=== PATIENT | male | born 1955 | race Two or more races ===

== ENCOUNTER 2024-11-16 10:09 | Inpatient (IN) | payer MEDICARE, OTHER ==
[~2024-11-16] VITALS: Ht 167.6 cm; Wt 60.9 kg
--- NOTE | 2024-11-16 10:36 | ED.PDOC ---
HPI (NEURO) HPI Comments 69y M who presents to the ED for chief complaint of generalized weakness. Pt states he has been having weakness and states he has been having multiple falls in the past few weeks with last fall 5 days prior. Pt states he fell and hit his head but states he did not lose consciousness. Pt has noted bruise on the R side of his face and eye. Pt in the ED, is alert and oriented x 4 and able to answer all questions. Pt has no noted changes in vision, gait, or speech. Pt denies headache, dizziness, nausea, vomiting, chest pain or shortness of breath. Pt otherwise has noted history of DM and has noted Accu check of 567 in the ED. Pt otherwise denies any other symptoms at this time. Time Seen by MD: 10:33 Reviewed Notes: Nurses Notes, Medications, Allergies Mode of Arrival: Ambulatory Brought in by: sister Severity: Moderate Dizziness/Weakness Severity: Does not affect activitie Headache Severity: None Timing: Days Duration: Since onset Prehospital treatment: None Onset: At rest Circumstances: Spontaneous Symptoms: Weakness History of: DM Modifying factors: Nothing Associated Signs and Symptoms: Weakness Past Medical History PAST MEDICAL HISTORY: DM Surgical History: Denies all surgeries Family History Family History: Unknown Social History Smoker: Non-Smoker Alcohol: Denies ETOH Use Drugs: Marijuana Lives In: Home Constitutional: reports: malaise, weakness; denies: chills, diaphoresis, f atigue, fever, sweats, others EENTM: denies: blurred vision, double vision, ear bleeding, ear discharge, ear drainage, ear pain, ear ringing, eye pain, eye redness, hearing loss, mouth pain, mouth swelling, nasal discharge, nose bleeding, nose congestion, nose pain, photophobia, tearing, throat pain, throat swelling, voice changes, others Respiratory: denies: cough, hemoptysis, orthopnea, SOB at rest, shortness of breath, SOB with excertion, stridor, wheezing, others Cardiovascular: denies: chest pain, dizzy spells, diaphoresis, Dyspnea on exertion, edema, irregular heart beat, left arm pain, lightheadedness, palpitations, PND, syncope, others Gastrointestinal: denies: abdomen distended, abdominal pain, blood streaked bowels, constipated, diarrhea, dysphagia, difficulty swallowing, hematemesis, me brenda, nausea, poor appetite, poor fluid intake, rectal bleeding, rectal pain, vomiting, others Genitourinary: denies: burning, dysuria, flank pain, frequency, hematuria, incontinence, penile discharge, penile sore, pain, testicle pain, testicle swelling, urgency, others Neurological: reports: weakness; denies: dizziness, fainting, headache, left sided numbness, left sided weakness, numbness, paresthesia, pre-existing deficit, right sided numbness, right sided weakness, seizure, speech problems, tingling, tremors, others Musculoskeletal: denies: back pain, gout, joint pain, joint swelling, muscle pain, muscle stiffness, neck pain, others Integumetry: denies: bruises, change in color, change in hair/nails, dryness, laceration, lesions, lumps, rash, wounds, others Allergic/Immunocompromised: denies: Difficulty Healing, Frequent Infections, Hives, Itching, others Hematologic/Lymphatic: denies: anemia, blood clots, easy bleeding, easy bruising, swollen glands, others Endocrine: denies: excessive hunger, excessive sweating, excessive thirst, excessive urination, flushing, intolerance to cold, intolerance to heat, unexplained weight gain, unexplained weight loss, others Psychiatric: denies: anxiety, bipolar disorder, depression, hopeless, panic disorder, schizophrenia, sleepless, suicidal, others All Other Systems: Reviewed and Negative Physical Exam General Appearance: Moderate Distress HEENT: Pharynx Normal, TMs Normal, Other (Bruising and ecchymosis around both eyes) Neck: Full Range of Motion, Non-Tender, Normal, Normal Inspection Respiratory: Chest Non-Tender, Lungs Clear, No Accessory Muscle Use, No Respiratory Distress, Normal Breath Sounds Cardiovascular: No Edema, No JVD, No Murmur, No Gallop, Normal Peripheral Pulses, Regular Rate/Rhythm Breast Exam: Deferred Gastrointestinal: No Organomegaly, Non Tender, No Pulsatile Mass, Normal Bowel Sounds, Soft Genitalia: Deferred Pelvic: Deferred Rectal: Deferred Extremities: No calf tenderness, Normal capillary refill, No pedal edema Musculoskeletal : Apperance: Normal Neurologic: corpsman II-XII nml as Tested, Motor Weakness, No Sensory Deficits, Other (Lethargic) Cerebellar Function: Normal Reflexes: Normal Skin: Dry, Normal Color, Warm Lymphatic: No Adenopathy EKG EKG : Pulse Rate (adult): 85 [place]: RAD Cardiac Rhythm: NSR Block: None Hypertrophy: None ST: Normal Was a procedure done? Was a procedure done?: No Differential Diagnosis (SZ) Seizure: N/A General Weakness: Anemia, CVA, Dehydration, Electrolyte imbalance, Encephalopathy, TIA, Other (uncontrolled DM, ) X-Ray, Labs, Meds, VS Vital Signs Date Time Temp Pulse Resp B/P (MAP) Pulse Ox O2 Delivery O2 Flow Rate FiO2 11/16/24 11:26 76 14 98 Room Air* 0 21 11/16/24 11:26 98.2 76 14 111/68 (82) 98 98.2 11/16/24 10:36 85 11/16/24 10:28 85 11/16/24 10:15 97.9 86 16 125/72 (89) 96 Lab Test 11/16/24 10:43 11/16/24 10:26 11/16/24 10:24 Range/Units White Blood Count 4.8 4.4-10.8 10^3/uL Red Blood Count 3.85 L 4.5-5.90 10^6/uL Hemoglobin 12.2 L 13.5-17.5 g/dL Hematocrit 36.1 L 41.0-53.0 % Mean Corpuscular Volume 94.0 80.0-100.0 fL Mean Corpuscular Hemoglobin 31.8 28.0-32.0 pg Mean Corpuscular Hemoglobin Concent 33.8 32.0-36.0 g/dL Red Cell Distribution Width 14.0 11.8-14.3 % Platelet Count 203 140-450 10^3/uL Mean Platelet Volume 10.0 6.9-10.8 fL Neutrophils (%) (Auto) 79.7 37.0-80.0 % Lymphocytes (%) (Auto) 13.4 10.0-50.0 % Monocytes (%) (Auto) 6.3 0.0-12.0 % Eosinophils (%) (Auto) 0.2 0.0-7.0 % Basophils (%) (Auto) 0.4 0.0-2.0 % Neutrophils # (Auto) 3.8 1.6-8.6 10 ^3/uL Lymphocytes # (Auto) 0.6 0.4-5.4 10 ^3/uL Monocytes # (Auto) 0.3 0-1.3 10 ^3/uL Eosinophils # (Auto) 0 0-0.8 10 ^3/uL Basophils # (Auto) 0 0-0.2 10 ^3/uL Nucleated Red Blood Cells 0.0 % Sodium Level 132 L 136-145 mmol/L Potassium Level 5.2 H 3.5-5.1 mmol/L Chloride Level 97 L 98-107 mmol/L Carbon Dioxide Level 27 20-31 mmol/L Anion Gap 8 5-15 Blood Urea Nitrogen 18 9-23 mg/dL Creatinine 1.25 0.700-1.30 mg/dL Glomerular Filtration Rate Calc 63 >90 mL/min BUN/Creatinine Ratio 14.4 10.0-20.0 Serum Glucose 640 *H 74-106 mg/dL Hemoglobin A1c > 14.0 H <5.7 % A1C Calcium Level 9.7 8.7-10.4 mg/dL Beta-Hydroxybutyric Acid 1.162 H < 0.4 mmol/L POC Glucose 571 *H 567 *H 70-106 mg/dl Current Medications Medications (Trade) Dose Ordered Sig/Hilario Route Start Time Stop Time Status Last Admin Sodium Chloride 1,000 ml @ 1,000 mls/hr Q1H ONCE IV 11/16/24 10:30 11/16/24 11:29 DC 11/16/24 11:26 EXAM: CT HEAD WITHOUT CONTRAST IMPRESSION: No acute intracranial abnormality. The patient had a 1 L bolus of normal saline The patient has a CBC within normal limits The chemistry panel shows a sodium level 132 The potassium is five two The patient has a normal anion gap in the CO2 level is 27 The patient's serum glucose is 640 The patient was given insulin for the hyperglycemia The patient was being admitted at this time Images Reviewed?: Images reviewed and evaluated by me Time of 1ST Reevaluation: 11:05 Reevaluation 1ST: Unchanged Patient Education/Counseling: Diagnosis, Treatment, Prognosis Family Education/Counseling: No Family Present Departure 1 Departure Time of Disposition: 18:21 Impression: Primary Impression: Generalized weakness Additional Impressions: Hyperglycemia Multiple falls Hyponatremia Disposition: ADMITTED INPATIENT Admit to: Tele Condition: Fair Critical Care Note Critical Care Time?: Yes (55 min-critical care time only) Stability Stability form required: Yes Unstable for transfer: Telemetry monitoring (Telemetry monitoring required), ED Physician Assesment (Clinical assesment) Heart Score Heart Score: Heart Score Response (Comments) Value History N/A 0 EKG N/A 0 Age N/A 0 Risk Factors N/A 0 Troponin N/A 0 Total 0 I personally scribed for SHRUTHI FINCH MD ([email or web address]) on 11/16/24 at 10:36. Electronically submitted by Taylor Love ([employer]). I personally scribed for SHRUTHI FINCH MD ([email or web address]) on 11/16/24 at 11:37. Electronically submitted by Taylor Love ([employer]). SHRUTHI FINCH MD Nov 16, 2024 10:36
--- NOTE | 2024-11-16 10:50 | DVH ---
EXAM: CT HEAD WITHOUT CONTRAST INDICATION: FALL, trauma, pain TECHNIQUE: CT of the head without intravenous contrast. Radiation Dose : 1. Head: CT Dose: CTDI volume is 54.14 mGy. Dose-length product is 958.75 mGy*cm The dose indicators for CT are the volume Computed Tomography (CT) Dose Index (CTDIvol) and the Dose Length Product (DLP), and are measured in units of mGy and mGy-cm, respectively. These indicators are not patient dose, but values generated from the CT scanner acquisition factors. The report includes radiation exposure data for exposures received during this examination. COMPARISON: None FINDINGS: There is no evidence of acute intracranial hemorrhage, extra-axial collection, mass effect, midline s hift, herniation or hydrocephalus. The ventricles, sulci and cisterns are age appropriate. The ramirez-white differentiation is intact. Patchy periventricular and subcortical white matter hypoattenuation is nonspecific but may be related to small vessel ischemic disease. Mild mucosal opacification of the ethmoid air cells. Mild right frontal soft-tissue swelling. IMPRESSION: No acute intracranial abnormality. Radiation optimization: All CT scans at this facility use at least one of these dose optimization gardenia hniques: automated exposure control mA and/or kV adjustment per patient size (includes targeted exam s where dose is matched to clinical indication) or iterative reconstruction.
[2024-11-16 11:10] LABS: Basophils # (auto) 0 10 ^3/uL (0-0.2); Basophils % (auto) 0.4 % (0.0-2.0); Eosinophils # (auto) 0 10 ^3/uL (0-0.8); Eosinophils % (auto) 0.2 % (0.0-7.0); Hematocrit 36.1 % (41.0-53.0); Hemoglobin 12.2 g/dL (13.5-17.5); Lymphocytes # (auto) 0.6 10 ^3/uL (0.4-5.4); Lymphocytes % (auto) 13.4 % (10.0-50.0); Mean Corpuscular Hemoglobin 31.8 pg (28.0-32.0); Mean Corpuscular Hgb Conc. 33.8 g/dL (32.0-36.0); Monocytes # (auto) 0.3 10 ^3/uL (0-1.3); Monocytes % (auto) 6.3 % (0.0-12.0); Neutrophils # (auto) 3.8 10 ^3/uL (1.6-8.6); Neutrophils % (auto) 79.7 % (37.0-80.0); Platelet Count (auto) 203 10^3/uL (140-450); Red Blood Cells 3.85 10^6/uL (4.5-5.90); White Blood Cell 4.8 10^3/uL (4.4-10.8)
--- NOTE | 2024-11-16 11:11 | ECG ---
[facility] Test Date: 2024-11-16 Test Time: 10:28:10 Pat Name: SANG QUINTANA Department: ER Room: [address] [place] [address] Gender: M [employer] Work[employer]: GP : 1955 Requested By: SHRUTHI FINCH Order Number: [id number] Reading MD: Trevor Schmidt Measurements Intervals [place] Rate: 85 P: 85 WV: 155 QRS: 118 QRSD: 85 T: 36 QT: 351 QTc: 418 Interpretive Statements Sinus rhythm Right axis deviation Electronically Signed On 11-16-2024 22:27:03 PST by Trevor Schmidt Please click the below link to view image of tracing.
[2024-11-16 11:19] LABS: Anion Gap 8 (5-15); Calcium 9.7 mg/dL (8.7-10.4); Carbon Dioxide 27 mmol/L (20-31)
[2024-11-16 11:24] LABS: BUN/Creatinine Ratio 14.4 (10.0-20.0); Blood Urea Nitrogen 18 mg/dL (9-23)
[2024-11-16 11:26] VITALS: PULSE 76; RESP 14; O2SAT 98
[2024-11-16] MEDS: SODIUM CHLORIDE 0.9% 1,000 ML IV ONE (11:26)
[2024-11-16 11:45] LABS: Chloride 97 mmol/L (98-107); Potassium 5.2 mmol/L (3.5-5.1); Sodium 132 mmol/L (136-145)
[2024-11-16 11:46] LABS: Glucose 640 mg/dL (74-106)
[2024-11-16] MEDS ORDERED: ONDANSETRON HCL 4 MG/2 ML VIAL IV PRN (13:15)
[2024-11-16] MEDS: INSULIN DRIP 100 UNIT/100ML 100 ML IV SCH (13:15)
[2024-11-16] MEDS ORDERED: SODIUM CHLORIDE 0.9% 1,000 ML IV SCH (13:15)
[2024-11-16] MEDS ORDERED: DEXTROSE (50%) 50ML SYRG IV PRN (13:15)
[2024-11-16] MEDS: ACCU-CHEK COMFORT CURVE STRIP VI SCH (13:25)
--- NOTE | 2024-11-16 13:45 | DVHHP2 ---
History of Present Illness Reason for Visit: Status post fall History of Present Illness Jefferson Rocha is a 69-year-old male with past medical history of diabetes and left hip surgery who presents to the ED for multiple falls and general weakness. Patient reports that the last fall was 5 days ago with multiple falls in the last few weeks. Patient currently uses a cane with ambulation. Upon examination bruising noted on the face more so around the eyes bilaterally. Patient denies striking his head against the floor. He states he was walking on the street and fell face forward. Patient states that he smokes half a pack of cigarettes per day, uses marijuana, and denies alcohol use. Endocrine: Diabetes Past Surgical History: Other (Left hip surgery) Smoke: <1 pack per day ALCOHOL: none Drugs: Marijuana Domestic Violence: Neg Review of Systems Constitutional: Yes: Weakness; No: Fever, Chills, Sweats, Malaise, Other Eyes: No: Pain, Vision change, Conjunctivae inflammation, Eyelid inflammation, Other, Redness ENT: No: Ear pain, Ear discharge, Nose pain, Nose discharge, Nose congestion, Mouth pain, Mouth swelling, Throat pain, Throat swelling, Other Respiratory: No: Cough, Dry, Shortness of breath, SOB with excertion, Wheezing, Hemoptysis, Pleuritic Pain, Sputum, Wheezing, Other Cardiovascular: No: Chest Pain, Palpitations, Orthopnea, Paroxysmal Noc. Dyspnea, Edema, Lt Headedness, Other Gastrointestinal: No: Nausea, Vomiting, Abdominal Pain, Diarrhea, Constipation, Melena, Hematochezia, Other Genitourinary: No Dysuria, No Frequency, No Incontinence, No Hematuria, No Retention, No Other Musculoskeletal: No: other, neck pain, shoulder pain, arm pain, back pain, hand pain, leg pain, foot pain Skin: Bruising Neurological: No: Weakness, Numbness, Incoordination, Change in speech, Confusion, Seizures, Other Allergies: Coded Allergies: Penicillins (Verified Allergy, Unknown, 11/16/24) Exam Vital Signs Vital Signs Date Time Temp Pulse Resp B/P (MAP) Pulse Ox O2 Delivery O2 Flow Rate FiO2 11/16/24 11:26 76 14 98 Room Air* 0 21 11/16/24 11:26 98.2 111/68 (82) 98.2 General Appearance: Alert, Oriented X3, Cooperative, No acute distress HEENT: Atraumatic, PERRLA, EOMI, Mucous membr. moist/pink Respiratory: Clear to auscultation, Normal air movement Cardiovascular: Regular rate, Normal S1, Normal S2 Abdominal: Normal bowel sounds, Soft, No tenderness, No hepatospenomegaly, No masses Extremities: Normal pulses Neuro: Normal speech, Normal tone, Sensation intact Psych/Mental Status: Mental status NL, Mood NL Labs/Xrays Labs Test 11/16/24 10:43 11/16/24 10:26 Range/Units White Blood Count 4.8 4.4-10.8 10^3/uL Red Blood Count 3.85 L 4.5-5.90 10^6/uL Hemoglobin 12.2 L 13.5-17.5 g/dL Hematocrit 36.1 L 41.0-53.0 % Mean Corpuscular Volume 94.0 80.0-100.0 fL Mean Corpuscular Hemoglobin 31.8 28.0-32.0 pg Mean Corpuscular Hemoglobin Concent 33.8 32.0-36.0 g/dL Red Cell Distribution Width 14.0 11.8-14.3 % Platelet Count 203 140-450 10^3/uL Mean Platelet Volume 10.0 6.9-10.8 fL Neutrophils (%) (Auto) 79.7 37.0-80.0 % Lymphocytes (%) (Auto) 13.4 10.0-50.0 % Monocytes (%) (Auto) 6.3 0.0-12.0 % Eosinophils (%) (Auto) 0.2 0.0-7.0 % Basophils (%) (Auto) 0.4 0.0-2.0 % Neutrophils # (Auto) 3.8 1.6-8.6 10 ^3/uL Lymphocytes # (Auto) 0.6 0.4-5.4 10 ^3/uL Monocytes # (Auto) 0.3 0-1.3 10 ^3/uL Eosinophils # (Auto) 0 0-0.8 10 ^3/uL Basophils # (Auto) 0 0-0.2 10 ^3/uL Nucleated Red Blood Cells 0.0 % Sodium Level 132 L 136-145 mmol/L Potassium Level 5.2 H 3.5-5.1 mmol/L Chloride Level 97 L 98-107 mmol/L Carbon Dioxide Level 27 20-31 mmol/L Anion Gap 8 5-15 Blood Urea Nitrogen 18 9-23 mg/dL Creatinine 1.25 0.700-1.30 mg/dL Glomerular Filtration Rate Calc 63 >90 mL/min BUN/Creatinine Ratio 14.4 10.0-20.0 Serum Glucose 640 *H 74-106 mg/dL Calcium Level 9.7 8.7-10.4 mg/dL Beta-Hydroxybutyric Acid 1.162 H < 0.4 mmol/L POC Glucose 571 *H 70-106 mg/dl EXAM: CT HEAD WITHOUT CONTRAST INDICATION: FALL, trauma, pain TECHNIQUE: CT of the head without intravenous contrast. Radiation Dose : 1. Head: CT Dose: CTDI volume is 54.14 mGy. Dose-length product is 958.75 mGy*cm The dose indicators for CT are the volume Computed Tomography (CT) Dose Index (CTDIvol) and the Dose Length Product (DLP), and are measured in units of mGy and mGy-cm, respectively. These indicators are not patient dose, but values generated from the CT scanner acquisition factors. The report includes radiation exposure data for exposures received during this examination. COMPARISON: None FINDINGS: There is no evidence of acute intracranial hemorrhage, extra-axial collection, mass effect, midline shift, herniation or hydrocephalus. The ventricles, sulci and cisterns are age appropriate. The ramirez-white differentiation is intact. Patchy periventricular and subcortical white matter hypoattenuation is nonspecific but may be related to small vessel ischemic disease. Mild mucosal opacification of the ethmoid air cells. Mild right frontal soft-tissue swelling. IMPRESSION: No acute intracranial abnormality. Assessment/Plan Assessment/Plan Assessment/Plan: DKA with uncontrolled DM Type 2 Hyponatremia Hyperkalemia Labs EKG NS 1 L given ED Acetone level CT head noted EKG UA Beta hydroxy Insulin drip UDS TSH A1c Echo ordered A.m. labs nurses educator Tobacco use Counseled patient on cessation of tobacco use Substance abuse Counseled patient on cessation of substance use FEN/PPX Diet IV fluids PUD ppx not indicated no hx of GERD DVT ppx not indicated patient ambulating Admit patient to ICU Home medications reconciled Discussed plan of care with patient and nurse Plan discussed with: Patient My Orders Orders - EVELYNE DANGELO Procedure Category Date Status Time Insulin Drip Protocol [facility] 11/16/24 Transmitted Sodium Chloride 0.9% PHA 11/16/24 Transmitted 13:15 Sodium Chloride 0.9% PHA 11/16/24 Transmitted 17:15 Sodium Chloride 0.9% PHA 11/16/24 Transmitted 19:15 Insulin Algorithm # 1 PHA 11/16/24 Transmitted 13:15 Dextrose 50% Syringe PHA 11/16/24 Transmitted 13:15 Glucose Blood PHA 11/16/24 Transmitted (Accu-Chek Comfort 13:30 Complete Blood Count LAB 11/16/24 Transmitted 13:12 Basic Metabolic Panel LAB 11/16/24 Transmitted 13:12 Phosphorus LAB 11/16/24 Transmitted 13:12 Magnesium LAB 11/16/24 Transmitted 13:12 Osmolality, Serum LAB 11/16/24 Transmitted 13:12 Abg W/ Co-Ox RT 11/16/24 Logged 13:12 Basic Metabolic Panel LAB 11/16/24 Transmitted 13:12 Basic Metabolic Panel LAB 11/16/24 Transmitted 19:12 Basic Metabolic Panel LAB 11/17/24 Verified 01:12 Basic Metabolic Panel LAB 11/17/24 Verified 07:12 Urinalysis LAB 11/16/24 Transmitted 13:12 Neurological JUAN 11/16/24 Transmitted Assessment 13:12 Vs/Hemodynamics JUAN 11/16/24 Transmitted 13:12 Acetone LAB 11/16/24 Transmitted 13:12 Long Acting Insulin PHA 11/16/24 Transmitted Lantus 13:15 Long Acting Insulin PHA 11/17/24 Transmitted Lantus 10:00 Drug Screen LAB 11/16/24 Transmitted 13:12 Thyroid Stimulating LAB 11/16/24 Transmitted Hormone 13:12 Hemoglobin A1c LAB 11/16/24 Transmitted 13:12 Echo 2d Mode Cardiac US 11/16/24 Transmitted DOP 13:12 Admit ADMIT 11/16/24 Transmitted 13:12 Allergies JUAN 11/16/24 Transmitted 13:12 Code Status CODE 11/16/24 Transmitted 13:12 0.9% Ns 1000 Ml PHA 11/16/24 Transmitted 13:15 Ondansetron Hcl PHA 11/16/24 Transmitted (Zofran) 13:15 Complete Blood Count LAB 11/17/24 Verified 04:00 Comprehensive LAB 11/17/24 Verified Metabolic Panel 04:00 Cardiac DIET 11/16/24 Transmitted Diet-2gna,Lofat,Lochol Lunch Acetaminophen Tablet PHA 11/16/24 Transmitted (Tylenol Tablet) 13:15 Date of Service: Nov 16, 2024 Billing Provider: EVELYNE DANGELO Common Visit Codes: [id number] INP/OBS CARE (HIGH) EVELYNE DANGELO Nov 16, 2024 13:45
[2024-11-16 14:20] LABS: Base Excess -0.9 mmol/L (-2.0-3.0)
[2024-11-16 14:21] LABS: Urine Bacteria None Seen /hpf (None Seen)
[2024-11-16 14:26] LABS: Urine Blood Negative /uL (Negative); Urine Clarity Clear (Clear); Urine Color Light-Yellow (Yellow); Urine Protein, UAD Negative (Negative); Urine Specific Gravity 1.033 (1.001-1.035); Urine Squamous Epithelial Cell FEW /hpf (<5); Urine Urobilinogen Normal (Negative); Urine WBC 1 /HPF (0-3)
[2024-11-16 14:57] LABS: Basophils # (auto) 0 10 ^3/uL (0-0.2); Basophils % (auto) 0.5 % (0.0-2.0); Eosinophils # (auto) 0 10 ^3/uL (0-0.8); Eosinophils % (auto) 0.3 % (0.0-7.0); Hematocrit 36.2 % (41.0-53.0); Hemoglobin 12.2 g/dL (13.5-17.5); Lymphocytes # (auto) 0.9 10 ^3/uL (0.4-5.4); Lymphocytes % (auto) 18.5 % (10.0-50.0); Mean Corpuscular Hemoglobin 31.5 pg (28.0-32.0); Mean Corpuscular Hgb Conc. 33.7 g/dL (32.0-36.0); Mean Corpuscular Volume 93.4 fL (80.0-100.0); Monocytes # (auto) 0.3 10 ^3/uL (0-1.3); Monocytes % (auto) 6.3 % (0.0-12.0); Neutrophils # (auto) 3.4 10 ^3/uL (1.6-8.6); Neutrophils % (auto) 74.4 % (37.0-80.0); Platelet Count (auto) 196 10^3/uL (140-450); Red Blood Cells 3.88 10^6/uL (4.5-5.90); Red Cell Distribution Width 13.7 % (11.8-14.3); White Blood Cell 4.6 10^3/uL (4.4-10.8)
[2024-11-16 14:58] LABS: Cannabinoid Screen, Urine Neg (NEGATIVE)
[2024-11-16 15:04] LABS: Amphetamine Screen, Urine Neg (NEGATIVE); Barbiturate Scree,Urine Neg (NEGATIVE); Benzodiazephine Screen, Urine Neg (NEGATIVE); Cocaine Screen, Urine Neg (NEGATIVE); Opiate Scree,Urine Neg (NEGATIVE); Phencyclidine Screen, Urine Neg (NEGATIVE)
[2024-11-16 15:13] LABS: Chloride 100 mmol/L (98-107); Potassium 4.8 mmol/L (3.5-5.1)
[2024-11-16 15:14] LABS: Anion Gap 7 (5-15); Carbon Dioxide 27 mmol/L (20-31)
[2024-11-16 15:15] LABS: Calcium 9.7 mg/dL (8.7-10.4)
[2024-11-16] MEDS: SODIUM CHLORIDE 0.9% 1,000 ML IV SCH ×3 (15:15→19:40)
[2024-11-16 15:19] LABS: BUN/Creatinine Ratio 15.6 (10.0-20.0); Blood Urea Nitrogen 17 mg/dL (9-23); Sodium 134 mmol/L (136-145)
[2024-11-16 15:20] LABS: Magnesium 2.2 mg/dL (1.6-2.6)
[2024-11-16 15:21] LABS: Phosphorus 2.7 mg/dL (2.4-5.1)
[2024-11-16 15:29] LABS: Glucose 465 mg/dL (74-106)
[2024-11-16 15:30] VITALS: PULSE 74; RESP 12; O2SAT 98
[2024-11-16] MEDS: INSULIN LANTUS (GLARGINE) 1 /0.01ml (100units/ml) SC ONE (15:46)
[2024-11-16 19:28] VITALS: PULSE 84; RESP 10; O2SAT 94
[2024-11-16 19:55] LABS: Calcium 8.9 mg/dL (8.7-10.4); Potassium 3.7 mmol/L (3.5-5.1); Sodium 141 mmol/L (136-145)
[2024-11-16 19:56] LABS: Anion Gap 7 (5-15); Carbon Dioxide 26 mmol/L (20-31)
[2024-11-16 20:02] LABS: Blood Urea Nitrogen 16 mg/dL (9-23); Chloride 108 mmol/L (98-107); Glucose 55 mg/dL (74-106)
[2024-11-17] MEDS: InsuLIN REG 1unit/0.01ml Soln (100units/ml) SC SCH
[2024-11-17] MEDS: ACCU-CHEK COMFORT CURVE STRIP VI SCH (00:01)
--- NOTE | 2024-11-17 03:56 | DVH ---
EXAM: CT HEAD WITHOUT CONTRAST INDICATION: change in mentation TECHNIQUE: CT of the head without intravenous contrast. Radiation Dose Information: CT Dose: CTDI volume is 58.9 mGy. Dose-length product is 180838.1 mGy*cm The dose indicators for CT are the volume Computed Tomography (CT) Dose Index (CTDIvol) and the Dose Length Product (DLP), and are measured in units of mGy and mGy-cm, respectively. These indicators are not patient dose, but values generated from the CT scanner acquisition factors. The report includes radiation exposure data for exposures received during this examination. COMPARISON: CT HEAD WITHOUT CONTRAST on DOS: 11/16/24 FINDINGS: There is no evidence of acute intracranial hemorrhage, extra-axial collection, mass effect, midline s hift, herniation or hydrocephalus. The ventricles, sulci and cisterns are age appropriate. The ramirez-white differentiation is intact. Patchy periventricular and subcortical white matter hypoattenuation is nonspecific but may be related to small vessel ischemic disease. The visualized paranasal sinuses and mastoid air cells are clear. The surrounding soft tissues and osseous structures are unremarkable. IMPRESSION: 1. No acute intracranial abnormality.
[2024-11-17 05:19] LABS: Basophils # (auto) 0 10 ^3/uL (0-0.2); Basophils % (auto) 0.2 % (0.0-2.0); Eosinophils # (auto) 0 10 ^3/uL (0-0.8); Eosinophils % (auto) 0.1 % (0.0-7.0); Hematocrit 30.7 % (41.0-53.0); Hemoglobin 10.5 g/dL (13.5-17.5); Lymphocytes # (auto) 1.2 10 ^3/uL (0.4-5.4); Lymphocytes % (auto) 21.2 % (10.0-50.0); Mean Corpuscular Hemoglobin 31.7 pg (28.0-32.0); Mean Corpuscular Hgb Conc. 34.2 g/dL (32.0-36.0); Mean Corpuscular Volume 92.8 fL (80.0-100.0); Monocytes # (auto) 0.4 10 ^3/uL (0-1.3); Monocytes % (auto) 7.4 % (0.0-12.0); Neutrophils # (auto) 4.1 10 ^3/uL (1.6-8.6); Neutrophils % (auto) 71.1 % (37.0-80.0); Nucleated Red Blood Cells % 0.1 %; Platelet Count (auto) 163 10^3/uL (140-450); Red Blood Cells 3.31 10^6/uL (4.5-5.90); Red Cell Distribution Width 13.7 % (11.8-14.3); White Blood Cell 5.7 10^3/uL (4.4-10.8)
[2024-11-17 05:48] LABS: Alanine Aminotransferase 34 U/L (7-40); Albumin 3.6 g/dL (3.2-4.8); Alkaline Phosphatase 116 U/L (46-116); Anion Gap 9 (5-15); Bilirubin, Total 0.6 mg/dL (0.2-1.0); Calcium 8.8 mg/dL (8.7-10.4); Carbon Dioxide 25 mmol/L (20-31); Chloride 104 mmol/L (98-107); Potassium 3.7 mmol/L (3.5-5.1); Sodium 138 mmol/L (136-145); Total Protein 5.7 g/dL (5.7-8.2)
--- NOTE | 2024-11-17 05:50 | BSKYNEURO ---
[place] Neuro Note # Demographics Consult Type: Acute Stroke Level 2 (4.5-24 hrs) Patient Location: Emergency Room First Name: SANG Last Name: LORI Date of : 1955 Age: 69 Gender: Male Facility: [facility] Time of Initial Page (): 11/17/2024 04:32 Time of Return Call (): 11/17/2024 04:33 # HPI History: LKN-yesterday night around 1900 Patient is coming to the ER for fall at home. He initially was responsive and able to follow directions but sometime in the night he was noted to be confused and is repeating the same questions. He has bruises on his body and falls at home H/O DM # Scores Time of exam and NIHSS (): 11/17/2024 05:30 Level of Consciousness 1a: [1] = Not alert; but arousable by minor stim LOC Questions 1b: [2] = Answers neither correctly LOC Commands 1c: [0] = Performs both tasks correctly Best Gaze 2: [0] = Normal Visual 3: [0] = No visual loss Facial Palsy 4: [0] = Normal symmetrical movements Motor Arm Left 5a: [2] = Some effort against gravity Motor Arm Right 5b: [2] = Some effort against gravity Motor Leg Left 6a: [2] = Some effort against gravity Motor Leg Right 6b: [2] = Some effort against gravity Limb Ataxia 7: [0] = Absent Sensory 8: [0] = Normal Best Language 9: [2] = Severe aphasia Dysarthria 10: [0] = Normal Extinction and Inattention 11: [0] = No abnormality NIHSS Total: 13 # Assessment Impression: - Altered Mental Status - Stroke Mimic Patient looks encephalopathic; likely metabolic/infectious. If no other obvious cause of encephalopathy and patient is not improving, will need MRI brain w/o contrast and EEG # Plan Thrombolytic/Intervention: NOT IV Thrombolysis or IA Intervention candidate Thrombolytic Exclusion: > 4.5 hours Intraarterial Exclusion: - clinical exam not consistent with presence of large vessel occlusion (LVO), can reconsider if LVO found on vascular imaging Thrombolytic/Intraarterial Exclusion: - IV thrombolytic and IA intervention considered but not recommended as this patient's symptoms are not clinically consistent with an assumed diagnosis of stroke Labs: - Ammonia - urine drug screen - ua - CBC - comprehensive metabolic panel - ESR - ABG Imaging: (urgency: routine): - MRI Brain without contrast Diagnostic Test: - EEG Medication: - aspirin 81 mg daily Other: - If patient has any neurological deterioration please call me back immediately - I have discussed my recommendations with the referring provider - would not pursue stroke work-up if MRI is negative - telemetry monitoring Disposition: admit # Logistics Attestation of consult completion: The patient is located at: [facility]. Facility staff participated in the visit. I performed this telemedicine visit from my offsite office utilizing interactive 2 way audio and visual telecommunication technology. Total time spent in telemedicine encounter: I spent 10 minutes reviewing clinical data and/or imaging, obtaining history, examining the patient, communicating with the onsite care team, and in preparation of this report. # Demographics First Name: SANG Last Name: LORI Facility: [facility] Yes HIMA MARTIN MD Nov 17, 2024 05:50
[2024-11-17 06:00] LABS: Aspartate Aminotransferase 41 U/L (13-40); Glucose 149 mg/dL (74-106)
[2024-11-17 06:03] LABS: BUN/Creatinine Ratio 16.7 (10.0-20.0); Blood Urea Nitrogen 14 mg/dL (9-23)
[2024-11-17 08:00] VITALS: PULSE 65; RESP 12; O2SAT 98
[2024-11-17] MEDS: INSULIN LANTUS (GLARGINE) 1 /0.01ml (100units/ml) SC SCH (10:00)
[2024-11-17] MEDS ORDERED: LORazepam 2MG/ML-1ML VIAL IV PRN (10:00)
[2024-11-17] MEDS: THIAMINE 100mg/ml INJ (200mg/2ml VIAL) IV ONE (10:30)
[2024-11-17] MEDS: LORazepam 2MG/ML-1ML VIAL IV ONE (10:44)
[2024-11-17] MEDS: FOLIC ACID 1 MG TAB PO SCH (12:49)
[2024-11-17] MEDS: MULTIPLE VITAMIN TAB PO SCH (12:50)
[2024-11-17 17:07] LABS: Base Excess 2.2 mmol/L (-2.0-3.0)
[2024-11-17] MEDS: ETOMIDATE (2MG/ML) 20ML VIAL IV ONE ×2 (17:20)
[2024-11-17] MEDS: ROCURONIUM 10MG/ML 10ML VIAL IV ONE ×2 (17:20)
[2024-11-17] MEDS: MIDAZOLAM DRIP 50 mg/50mL 50 ML IV SCH (17:21)
[2024-11-17] MEDS: MIDAZOLAM DRIP 50 mg/50mL 50 ML IV ONE (17:21)
--- NOTE | 2024-11-17 17:22 | DVHSR ---
APPROVED REPORT EXAM: Two-dimensional and M-mode echocardiogram with Doppler and color Doppler. Blood Pressure: 118/65 mmHg INDICATION Weakness RISK FACTORS Height: 5'6", Weight: 107 DIMENSIONS LVDd4.1 (3.8-5.7cm)LA (2D)2.7 (1.9-4.0cm)Aortic Root (2.0-3.7cm) LVDs2.8 (2.5-4.0cm)LA (MM) (1.9-4.0cm)Aortic Cusp Exc (1.5-2.0cm) EF (%) 60.0 (55-70%)Rt. Atrium (1.9-4.0cm)Asc. Aorta cm IVSd1.0 (0.7-1.1cm)RV (D) (1.8-2.4cm) Mitral Valve MitralMitral Stenosis E/A ratio0.02D MVAcm2 Other Information Quality : Technically LimitedRhythm : Technically limited study due to pt moving and grabbing probe. Conclusion lvef 60% by visual estimate normal rv function no severe valve abnormalites noted
--- NOTE | 2024-11-17 17:24 | DVHNC2 ---
Intubation Indication: Respiratory Insufficiency Prep: Preoxygenation Pretreated with: Analgesia, Sedation Medicated with: Vecuronium Intubation Approach: Orotracheal Intubation size: cm (8) Date of Service: Nov 17, 2024 Billing Provider: NALINI HOLGUIN MD Common Visit Codes: [id number] INP/OBS CARE (HIGH) Secondary Visit Codes: 67025-[id number] STANDBY SERVICE Consultation Codes: [id number] CONSULT <45MIN Procedure Codes: [id number] NALINI HOLGUIN MD Nov 17, 2024 17:24
--- NOTE | 2024-11-17 17:30 | DVHINCON2 ---
Date of service: Nov 17, 2024 Referring Physician P[place]y Reason for Consultation Change in mentation History of Present Illness Mr. Amin is a 69 years old right-handed gentleman with a history of diabetes, alcohol abuse, he was brought to the hospital on 11/16/24 with a chief company of multiple falls in lasts a few weeks. The patient is just intubated because aspiration and desaturation. At that time, he was awake, moving his arms, and head, but he does not follow verbal commands According to his son, he was mentally normal until one month ago, when he developed progressive confusion, weakness, gait disturbance, and he has fall frequently. He has a no history of stroke, seizure, or similar problems previously He drinks alcohol heavily on daily basis for many years UDS, 11/16/2024: Negative Urinalysis, 11/16/2024: WBC: 1, urine leukocyte esterase: Negative WBC/HB/PLT/MCV, 11/17/2024: 5.7/10.5/163/92.8 Anion gap, 11/16/2024: Eight, seven, seven CMP, 11/17/2024: Unremarkable Glucose, 11/16/2024: 640, 465, 55, 11/17/2024: 149 HGB A1c, 11/16/2024: >14 Beta hydroxide beauty uric acid, 11/16/2024: 1.14 TSH, 11/16/2024: 2.44 CT head, 11/16/24: No acute intracranial abnormality CT head, 11/17/2024: No acute intracranial abnormality Past Medical History Diabetes Past Surgical History Hip surgery Family History No major medical problems Social History He smokes, he has a long history of heavy daily alcohol consumption, not clear if he has history of drug abuse Allergies: Coded Allergies: Penicillins (Verified Allergy, Unknown, 11/16/24) Current Medications Current Medications Medications (Trade) Dose Ordered Sig/Hilario Route PRN Reason Start Time Stop Time Status Last Admin Sodium Chloride 1,000 ml @ 150 mls/hr Q6H40M IV 11/16/24 19:15 11/17/24 15:15 Insulin Glargine (Lantus) 15 units DAILY SC 11/17/24 10:00 Diagnostic Test (Pha) (Accu-Chek Comfort Curve T) 1 strip IQ4HR 11/17/24 00:00 11/17/24 16:27 Insulin Human Regular (InsuLIN R) IQ4HR SC 11/17/24 00:00 11/17/24 12:30 Dextrose 50 ml UD PRN IV Blood Sugar LESS THAN 60 11/16/24 21:15 Thiamine HCl 100 mg DAILY PO 11/18/24 10:00 Folic Acid 1 mg DAILY PO 11/17/24 10:00 11/17/24 12:49 Multivitamins (Mvi Tab) 1 tab DAILY PO 11/17/24 10:00 11/17/24 12:50 Lorazepam (Ativan Inj) 1 mg Q2HPRN PRN IV ETOH-SEE PROTOCOL 11/17/24 10:00 Metronidazole 100 ml @ 100 mls/hr Q8HR IV 11/17/24 22:00 UNV Ceftriaxone Sodium 50 ml @ 100 mls/hr DAILY@09 IV 11/18/24 09:00 UNV Midazolam HCl 50 ml @ 1 mls/hr Q24H IV 11/17/24 17:15 UNV Review of Systems As above, the other systems are negative Vital Signs Vital Signs Date Time Temp Pulse Resp B/P (MAP) Pulse Ox O2 Delivery O2 Flow Rate FiO2 11/17/24 14:00 99 14 119/74 (89) 100 11/17/24 08:00 Room Air* 0 21 11/17/24 08:00 98.4 98.4 Physical Exam The patient is well-nourished and well-developed with no distress. The patient is intubated HEENT: Normocephalic, neck supple, no carotid bruits Lungs: Clear to auscultation Cardiovascular: Regular rate and region, S1, S2, no murmurs Abdomen: Soft, nontender, normal bowel sounds MENTAL STATUS: Subjective, CRANIAL NERVES: Pupils are equal, round and reactive, pupils are equal round, and reactive to light, normal conjugated eye movement. No signs of facial weakness. He can move with the head from iozz-yr-dors SENSATION: Okay to pinprick and light touch MOTOR: Normal tone in the upper and lower extremity. Normal muscle bulk. No fasciculations. He moves both arms, questionably weak in the right arm (RN: He was strong and he moved all extremities before the intubation) REFLEXES: Deep tendon reflexes are symmetrical. No pathological reflexes. CEREBELLAR/COORDINATION: Deferred GAIT/STATION: deferred. Labs/Diagnostic Data Labs Test 11/17/24 17:03 11/17/24 16:16 11/17/24 04:46 11/16/24 14:19 Range/Units Blood Gas Specimen Type Arterial Blood Gas Sample Site Right radial Blood Gas Patient Temperature 37.0 Arterial Blood Date Drawn [id number] Arterial Blood pH 7.499 H 7.350-7.450 Arterial Blood Partial Pressure CO2 32.7 L 35.0-48.0 mmHg Arterial Blood Partial Pressure O2 57.5 L 83.0-108.0 mmHg Arterial Blood HCO3 24.9 21.0-28.0 mmol/L Arterial Blood Oxygen Saturation 91.4 L 94.0-98.0 % Arterial Blood Base Excess 2.2 -2.0-3.0 mmol/L Arterial Blood Oxyhemoglobin 90.4 L 94.0-98.0 % Arterial Blood Carboxyhemoglobin 0.7 0.5-1.5 % Arterial Blood Methemoglobin 0.4 0.0-1.5 % John Test Yes Blood Gas Total Hemoglobin 13.30 L 13.5-17.5 g/dL Blood Gas Liter Flow 10.00 Blood Gas Modality Oxymizer FiO2 % 72.0 POC Glucose 102 70-106 mg/dl White Blood Count 5.7 4.4-10.8 10^3/uL Red Blood Count 3.31 L 4.5-5.90 10^6/uL Hemoglobin 10.5 L 13.5-17.5 g/dL Hematocrit 30.7 #L 41.0-53.0 % Mean Corpuscular Volume 92.8 80.0-100.0 fL Mean Corpuscular Hemoglobin 31.7 28.0-32.0 pg Mean Corpuscular Hemoglobin Concent 34.2 32.0-36.0 g/dL Red Cell Distribution Width 13.7 11.8-14.3 % Platelet Count 163 140-450 10^3/uL Mean Platelet Volume 9.7 6.9-10.8 fL Neutrophils (%) (Auto) 71.1 37.0-80.0 % Lymphocytes (%) (Auto) 21.2 10.0-50.0 % Monocytes (%) (Auto) 7.4 0.0-12.0 % Eosinophils (%) (Auto) 0.1 0.0-7.0 % Basophils (%) (Auto) 0.2 0.0-2.0 % Neutrophils # (Auto) 4.1 1.6-8.6 10 ^3/uL Lymphocytes # (Auto) 1.2 0.4-5.4 10 ^3/uL Monocytes # (Auto) 0.4 0-1.3 10 ^3/uL Eosinophils # (Auto) 0 0-0.8 10 ^3/uL Basophils # (Auto) 0 0-0.2 10 ^3/uL Nucleated Red Blood Cells 0.1 % Sodium Level 138 136-145 mmol/L Potassium Level 3.7 3.5-5.1 mmol/L Chloride Level 104 98-107 mmol/L Carbon Dioxide Level 25 20-31 mmol/L Anion Gap 9 5-15 Blood Urea Nitrogen 14 9-23 mg/dL Creatinine 0.84 0.700-1.30 mg/dL Glomerular Filtration Rate Calc 96 >90 mL/min BUN/Creatinine Ratio 16.7 10.0-20.0 Serum Glucose 149 H 74-106 mg/dL Calcium Level 8.8 8.7-10.4 mg/dL Total Bilirubin 0.6 0.2-1.0 mg/dL Aspartate Amino Transferase (AST) 41 H 13-40 U/L Alanine Aminotransferase (ALT) 34 7-40 U/L Alkaline Phosphatase 116 46-116 U/L Total Protein 5.7 5.7-8.2 g/dL Albumin 3.6 3.2-4.8 g/dL Urine Color Light-yellow Yellow Urine Clarity Clear Clear Urine pH 5.0 5.0-9.0 Urine Specific [place] 1.033 1.001-1.035 Urine Protein Negative Negative Urine Ketones 1+ H Negative Urine Blood Negative Negative /uL Urine Nitrite Negative Negative Urine Bilirubin Negative Negative Urine Urobilinogen Normal Negative mg/dL Urine Leukocyte Esterase Negative Negative /uL Urine RBC 1 0 - 3 /hpf Urine Microscopic WBC 1 0-3 /HPF Urine Squamous Epithelial Cells Few <5 /hpf Urine Bacteria None seen None Seen /hpf Urine Glucose 4+ H Normal mg/dL Test 11/16/24 14:17 11/16/24 14:16 11/16/24 10:43 Range/Units Serum Osmolality 305 H 278-298 mOsm/kg Phosphorus Level 2.7 2.4-5.1 mg/dL Magnesium Level 2.2 1.6-2.6 mg/dL Beta-Hydroxybutyric Acid 1.140 H < 0.4 mmol/L Thyroid Stimulating Hormone (TSH) 2.44 0.55-4.78 uIU/mL Urine Opiates Screen Neg NEGATIVE Urine Fentanyl Screen Neg NEGATIVE Urine Barbiturates Screen Neg NEGATIVE Urine Phencyclidine Screen Neg NEGATIVE Urine Amphetamines Screen Neg NEGATIVE Urine Benzodiazepines Screen Neg NEGATIVE Urine Cocaine Screen Neg NEGATIVE Urine Cannabinoids Screen Neg NEGATIVE Hemoglobin A1c > 14.0 H <5.7 % A1C Assessment Altered mental status Metabolic encephalopathy ? Metabolic encephalopathy Toxic encephalopathy Hypoxic encephalopathy Acute respiratory failure/aspiration Gait disturbance, multifactorial Alcoholism Wernicke encephalopathy ? Right arm weakness (not confirmed with his nurse) Plan/Recommendation Monitoring Supportive treatment ICU care EEG MR brain scan ICU care Stabilize vitals Respiratory support/vent management Oxygen Thiamine supplementation Folic acid supplementation IV antibiotics Diabetes management More recommendation per clinical course Progress: Guarded Critical care time spent is 45 minutes This medical document was created using an electronic medical record system with [employer] computerized dictation system. Although this document has been carefully reviewed, there may still be some phonetic and typographical errors. These areas are purely typographical due to imperfections of the software programs, and do not reflect any compromise in the patient's medical care. Plan discussed with: Chema, Other ISAAC AHMADI MD Nov 17, 2024 17:30
--- NOTE | 2024-11-17 17:54 | DVH ---
CHEST RADIOGRAPH Indication: S/P INTUBATION Technique: Single frontal view of the chest was obtained Comparison: None FINDINGS: Lines and Tubes: ET tube 5 cm from elkin. Lungs: No focal consolidation. Pleura: No effusion. Moderate right pneumothroax. Cardiomediastinal contours: Unremarkable Bones: No acute osseous abnormality. IMPRESSION: Moderate right pneumothorax Critical Result: Pneumothorax Findings discussed with patients RN , at 11/17/2024 05:52 PM, and acknowledged receipt and understan ding of the findings. ..
[2024-11-17] MEDS: fentaNYL Drip 2500mCg/250mlNS 250 ML IV SCH (19:00)
[2024-11-17] MEDS: fentaNYL Drip 2500mCg/250mlNS 250 ML IV ONE (19:06)
[2024-11-17 19:48] LABS: Base Excess 1.1 mmol/L (-2.0-3.0)
--- NOTE | 2024-11-17 19:49 | DVH ---
CT HEAD WITHOUT CONTRAST INDICATION: CHANGE IN STATUS COMPARISON: CT HEAD WITHOUT CONTRAST on DOS: 11/17/24, CT HEAD WITHOUT CONTRAST on DOS: 11/16/24 TECHNIQUE: CT of the head without intravenous contrast. RADIATION DOSE: CTDIvol: 58.31 mGy, DLP: 1032.48 mGy*cm FINDINGS: There is no evidence of intracranial hemorrhage, infarct, extra-axial collection, mass effect, midli ne shift, herniation or hydrocephalus. Very mild hypodensity noted in the periventricular white matte r consistent with very mild microvascular ischemic change. Mild ventricular enlargement related to mi ld cerebral volume loss. The ramirez-white differentiation is preserved. Visualized paranasal sinuses and mastoid air cells are unremarkable. Soft tissues and osseous structures are unremarkable. IMPRESSION: No acute intracranial abnormality identified. No appreciable change compared to the prior CT scan fro m earlier the same day.
--- NOTE | 2024-11-17 19:52 | DVH ---
EXAM: CT NECK WITHOUT CONTRAST INDICATION: POSSIBLE FOREIGN OBJECT, S/P POSSIBLE ASPIRATION Exam Date: 11/17/2024 07:24 PM COMPARISON: None TECHNIQUE: CT of the neck with intravenous contrast. RADIATION DOSE: CTDIvol: 12.87 mGy, DLP: 446.52 mGy*cm CONTRAST: Type of contrast: Contrast injected: ml Contrast ingested: ml FINDINGS: There is no evidence of cervical mass lesion, foreign body, pathologically enlarged lymph nodes or fl uid collection. The fat planes of the neck appear intact. Small amount of air is noted within the subcutaneous soft t issues in the right supraclavicular region possibly related to recent central line insertion. The airway and larynx are unremarkable. The parotid, submandibular and thyroid glands are unremarkable. Visualized lung apices are clear. Osseous structures are unremarkable. Right IJ central venous catheter noted. ETT in satisfactory position. Partially visualized left-sided NG tube. IMPRESSION: No evidence of cervical mass lesion, foreign body, pathologically enlarged lymph nodes or fluid colle ction.
--- NOTE | 2024-11-17 19:56 | DVHPN2 ---
Subjective confused in the ED, as per nurse he was oriented x 3 yesterday Changes from previous H/P or p: No Changes Eyes: No Pain, No Vision change, No Conjunctivae inflammation, No Eyelid inflammation, No Other, No Redness ENT: No Ear pain, No Ear discharge, No Nose pain, No Nose discharge, No Nose congestion, No Mouth pain, No Mouth swelling, No Throat pain, No Throat swelling, No Other Cardiovascular: No Chest Pain, No Palpitations, No Orthopnea, No Paroxysmal Noc. Dyspnea, No Edema, No Lt Headedness, No Other Respiratory: No Cough, No Dry, No Shortness of breath, No SOB with excertion, No Wheezing, No Hemoptysis, No Pleuritic Pain, No Sputum, No Other Gastrointestinal: No Nausea, No Vomiting, No Abdominal Pain, No Diarrhea, No Constipation, No Melena, No Hematochezia, No Other Genitourinary: No Dysuria, No Frequency, No Incontinence, No Hematuria, No Retention, No Other Musculoskeletal: No other, No neck pain, No shoulder pain, No arm pain, No back pain, No hand pain, No leg pain, No foot pain Skin: Bruising Objective Vitals Vital Signs Date Time Temp Pulse Resp B/P (MAP) Pulse Ox O2 Delivery O2 Flow Rate FiO2 11/17/24 19:06 101/74 11/17/24 18:45 89 22 98 11/17/24 17:21 100 11/17/24 08:00 Room Air* 0 11/17/24 08:00 98.4 98.4 Intake/Output Intake and Output 11/17/24 07:00 Intake Total 3465 ml Balance 3465 ml Intake IV Total 3465 ml General Appearance: severe distress, Other (confused) Lungs: Clear to auscultation Cardiovascular: Regular rate Musculoskeletal: Other (moving all extremities) Medications Current Medications Medications Dose Ordered Sig/Hilario Route Start Time Stop Time Status Last Admin Dose Admin Insulin Glargine 15 units DAILY SC 11/17/24 10:00 Ondansetron HCl 4 mg Q4HP PRN IV 11/16/24 13:15 Acetaminophen 650 mg Q6HP PRN PO 11/16/24 13:15 Diagnostic Test (Pha) 1 strip IQ4HR 11/17/24 00:00 11/17/24 16:27 1 STRIP Insulin Human Regular IQ4HR SC 11/17/24 00:00 11/17/24 12:30 2 UNITS Dextrose 50 ml UD PRN IV 11/16/24 21:15 Thiamine HCl 100 mg DAILY PO 11/18/24 10:00 Folic Acid 1 mg DAILY PO 11/17/24 10:00 11/17/24 12:49 1 MG Multivitamins 1 tab DAILY PO 11/17/24 10:00 11/17/24 12:50 1 TAB Lorazepam 1 mg Q2HPRN PRN IV 11/17/24 10:00 Midazolam HCl 50 ml @ 1 mls/hr Q24H IV 11/17/24 17:15 11/17/24 18:53 1 MLS/HR Clindamycin Phosphate 50 ml @ 50 mls/hr Q8HR IV 11/17/24 22:00 Vancomycin HCl 250 ml @ 250 mls/hr DAILY IV 11/18/24 10:00 UNV Fentanyl Citrate 250 ml @ 2.5 mls/hr Q24H IV 11/17/24 19:00 Laboratory Results Laboratory Tests 11/17/24 04:46 Chemistry Test 11/17/24 04:46 Albumin 3.6 g/dL (3.2-4.8) Calcium Level 8.8 mg/dL (8.7-10.4) Total Protein 5.7 g/dL (5.7-8.2) LFT Test 11/17/24 04:46 Alanine Aminotransferase (ALT) 34 U/L (7-40) Alkaline Phosphatase 116 U/L (46-116) Aspartate Amino Transferase (AST) 41 U/L (13-40) H Total Bilirubin 0.6 mg/dL (0.2-1.0) Urinalysis Test 11/16/24 14:19 Urine Color Light-yellow (Yellow) Urine Clarity Clear (Clear) Urine pH 5.0 (5.0-9.0) Urine Specific [place] 1.033 (1.001-1.035) Urine Protein Negative (Negative) Urine Ketones 1+ (Negative) H Urine Blood Negative /uL (Negative) Urine Nitrite Negative (Negative) Urine Bilirubin Negative (Negative) Urine Urobilinogen Normal mg/dL (Negative) Urine Leukocyte Esterase Negative /uL (Negative) Urine RBC 1 /hpf (0 - 3) Urine Microscopic WBC 1 /HPF (0-3) Urine Squamous Epithelial Cells Few /hpf (<5) Urine Bacteria None seen /hpf (None Seen) Urine Glucose 4+ mg/dL (Normal) H Blood Gas Results Test 11/17/24 17:03 11/17/24 19:34 Arterial Blood pH 7.499 (7.350-7.450) 7.462 (7.350-7.450) FiO2 % 72.0 100.0 Assessment/Plan Assessment/Plan DKA with uncontrolled DM Type 2 Hyponatremia Hyperkalemia AG and glucose back to normal Off insulin and on long acting Monitor accuchecks Acute metabolic encephalopathy Possible Wernicke IV thiamin and B12 MRI brain, EEG Monitor electrolytes CT head Neurology on consult Acute hypoxic respiratory failure Aspiration He aspirated while having lunch IV clinda and rocephin Intubated by ED Pulm consult FEN/PPX Diet IV fluids PUD ppx not indicated no hx of GERD DVT ppx not indicated patient ambulating Critical care time was 59 minutes Plan discussed with: Other (nurse) My Orders Orders - ANDRÉS SAUCEDA MD Procedure Category Date Status Time Chest Without Contrast CT 11/17/24 Taken 17:[address] 11/17/24 Resulted 17:[address] 11/17/24 Taken 17:19 Transfer Orders XFER 11/17/24 Transmitted 17:50 Date of Service: Nov 17, 2024 Billing Provider: ANDRÉS SAUCEDA MD Common Visit Codes: [id number] CARE 30-74 MIN ANDRÉS SAUCEDA MD Nov 17, 2024 19:56
[2024-11-17 19:57] VITALS: PULSE 76; RESP 20; O2SAT 100
--- NOTE | 2024-11-17 20:02 | DVH ---
EXAM: CT Chest Without Intravenous Contrast CLINICAL INDICATION: POSSIBLE ASPIRATION TECHNIQUE: Axial computed tomography images of the chest without intravenous contrast. This CT exam was performed using one or more of the following dose reduction techniques: automated exposure cont rol, adjustment of the mA and/or kV according to patient size, and/or use of iterative reconstruction technique. CONTRAST: RADIATION DOSE: CTDIvol = 5.88 mGy, DLP = 228.33 mGy-cm COMPARISON: None FINDINGS: LUNGS AND PLEURAL SPACES: Subtle ground-glass attenuation of the right upper lobe could be infectio us or inflammatory process. Mild lung emphysema. Bibasilar atelectasis or scarring. No pneumothora x. No significant effusion. HEART: Unremarkable. No cardiomegaly. No significant pericardial effusion. No significant yadav ry artery calcifications. BONES/JOINTS: Unremarkable. No acute fracture. No dislocation. SOFT TISSUES: Subcutaneous emphysema of the right neck. VASCULATURE: Scattered calcified atherosclerotic disease of aorta. No thoracic aortic aneurysm. LYMPH NODES: Unremarkable. No enlarged lymph nodes. TUBES, LINES AND DEVICES: Enteric tube. OTHER FINDINGS: . IMPRESSION: 1. Subtle ground-glass attenuation of the right upper lobe could be infectious or inflammatory proce ss. 2. Subcutaneous emphysema of the right neck. 3. Bibasilar atelectasis or scarring.
--- NOTE | 2024-11-17 20:24 | DVHNC2 ---
Procedure - Bronchoscopy with Bronchoalveolar Lavage procedure note: Indications:Hypoxia, Possible mucous plugging. Medicines: See SIGN BUILDER notes. Complications: None Procedure: Patient medications and allergies reviewed. The risks and benefits of the procedure and the sedation options and risk were discussed with the patient's healthcare proxy. All questions were answered and informed consent was obtained. Patient identification and proposed procedure were verified prior to the procedure by the physician, and a nurse, and the respiratory therapist in ICU room. The heart rate, respiratory rate, oxygen saturations, blood pressure, adequacy of pulmonary ventilation, and response to care were monitored throughout the procedure. The physical status of the patient was reassessed after the procedure. After obtaining informed consent, the bronchoscope was introduced through the endotracheal tube and advanced into the trachea bronchial tree of both lungs. The procedure was accomplished without difficulty. The patient tolerated the procedure well. Findings: The trachea is in normal caliber. The elkin is sharp. The tracheobronchial tree of the right lung was examined to at least the first subsegmental level. The bronchial mucosa and anatomy in the right lung are normal. There are no endobronchial lesions. There was copious whitish secretions from right main stem bronchus onward throughout R4-R10. Right middle lobe (RML) Bronchoalveolar lavage (BAL) obtained. RML BAL sent for gram stain and culture. The left upper lobe, lingula, and left lower lobe were examined to at least the first subsegmental level. Bronchial mucosa and anatomy in the left upper lobe and lingula are normal. There were no endobronchial lesions. There was copious whitish secretions from left main stem bronchus onward throughout L5-L10. Mucous plugging removed from L5-L10. There was no active bleeding at the completion of the procedure. Estimated blood loss: Less than 5 mL. Impression: Right and Left lower lobe atelectasis due to mucous plugging Mucous plugging from L5-L10 and R4-R10 RML BAL performed Recommendation: Follow-up RML BAL results. Procedure codes: 30387, bronchoscopy, rigid and flexible, including fluoroscopic guidance, one performed; with bronchial endobronchial broncho-alveolar lavage, single or multiple sites LIDIA RAY MD Nov 17, 2024 20:24
--- NOTE | 2024-11-17 20:27 | DVHNC2 ---
Procedure - ULTRASOUND-GUIDED RIGHT INTERNAL JUGULAR CENTRAL VENOUS CANNULATION CPT Codes: 56614 (ultrasound guidance) 33889 (insertion of non-tunneled centrally inserted central venous catheter) 53080 (CXR interpretation) Patient medications and allergies reviewed. The risks and benefits of the procedure and the sedation options and risk were discussed with the patient's healthcare proxy. All questions were answered and informed consent was obtained. Patient identification and proposed procedure were verified prior to the procedure by the physician, and a nurse in the patient's room. The heart rate, respiratory rate, oxygen saturations, blood pressure, adequacy of pulmonary ventilation, and response to care were monitored throughout the procedure. The physical status of the patient was reassessed after the procedure. DATE: 11/17/24 PHYSICIAN: Lidia Cowan PREOPERATIVE DIAGNOSIS: Shock, Acute aspiration pneumonia POSTOPERATIVE DIAGNOSIS: same PROCEDURE PERFORMED: Limited Ultrasound-guided Right internal jugular central line placement. ANESTHESIA: 2 mL of 1% lidocaine plain. ESTIMATED BLOOD LOSS: less than 5 mL. SPECIMENS: None. COMPLICATIONS: None. INDICATIONS FOR PROCEDURE: The patient is in need of large bore IV access for administration of fluids, including blood products and vasoactive drugs, possible transvenous cardiac pacing and CVP monitoring for hemodynamic instability. DESCRIPTION OF PROCEDURE IN DETAIL: The patient was lying in the Trendelenburg position with head turned 30 degrees away from the insertion site. The skin was thoroughly sponged with chlorhexidine and allowed to dry. All persons involved were shielded with hair nets, face masks and sterile gowns. With sterile-gloved hands the right neck area was draped with the large disposable sterile field provided in the pre-manufactured kit. The skin and subcutaneous tissues superficial to the RIGHT internal jugular vein were anesthetized with 2 mL of 1% lidocaine. The RIGHT internal jugular vein was identified on ultrasound from the angle of the mandible down into the supraclavicular fossa using the linear ultrasound probe in the transverse orientation. The carotid artery was identified and avoided utilizing color-flow. The internal jugular vein was then placed in the center of the ultrasound field and compressed for patency. A movement artifact was identified as the needle was advanced through the skin and advanced toward the vessel. A real time hyperechoic signal revealed visualization of vascular needle entry into the lumen as blood was noted to flashback in the syringe. The needle was then held in place while the guide wire was advanced. The needle was then removed. Direct visualization of guide wire location within the vein was noted on ultrasound indicating proper placement and was document in the electronic medical record chart. A skin dilator was advanced over the guidewire and removed, and the triple-lumen catheter was then advanced over the guide wire into proper position. The guide wire was removed and discarded. The ports were aspirated which showed good blood return and then carefully flushed with normal saline. The catheter was stabilized and sutured to the skin with 2-0 silk at 2 anchor points. A sterile bio-patch and dressing was placed over the catheter, including the insertion site. The patient tolerated the procedure well. A chest x-ray was ordered for position confirmation. I reviewed the image immediately after it was taken at bedside. Post-procedure chest x-ray demonstrates the central line in the superior vena and no evidence of any pneumothorax. An image recording of the procedure accompanies the chart. LIDIA COWAN MD Nov 17, 2024 20:27
[2024-11-17] MEDS ORDERED: metroNIDAZOLE 500MG/100ML 100 ML IV SCH (22:00)
[2024-11-17 22:05] VITALS: BP 109/79; PULSE 99; RESP 24; O2SAT 98
[2024-11-17] MEDS: CLINDAMYCIN 300MG IV 50 ML IV SCH (22:07)
[2024-11-17] MEDS: NOREPINEPHRINE 8 MG/250ML KIT 250 ML IV SCH (23:45)
[2024-11-18] VITALS (87 sets, daily range): BP systolic 76–129; BP diastolic 46–79; PULSE 48–99; RESP 10–24; TEMP 96.3–102.6; O2SAT 96–100
[2024-11-18] MEDS: ACETAMINOPHEN IV 1000 MG/100ML (10MG/ML) IV ONE (00:35)
[2024-11-18 03:32] LABS: Basophils # (auto) 0 10 ^3/uL (0-0.2); Basophils % (auto) 0.2 % (0.0-2.0); Eosinophils # (auto) 0 10 ^3/uL (0-0.8); Lymphocytes # (auto) 0.6 10 ^3/uL (0.4-5.4); Mean Corpuscular Hemoglobin 31.9 pg (28.0-32.0); Mean Corpuscular Hgb Conc. 34.3 g/dL (32.0-36.0); Monocytes # (auto) 0.5 10 ^3/uL (0-1.3); Neutrophils # (auto) 7.4 10 ^3/uL (1.6-8.6); Neutrophils % (auto) 86.8 % (37.0-80.0); Platelet Count (auto) 176 10^3/uL (140-450); Red Blood Cells 3.76 10^6/uL (4.5-5.90); Red Cell Distribution Width 13.6 % (11.8-14.3); White Blood Cell 8.5 10^3/uL (4.4-10.8)
[2024-11-18 03:46] LABS: Alanine Aminotransferase 29 U/L (7-40); Albumin 3.4 g/dL (3.2-4.8); Alkaline Phosphatase 110 U/L (46-116); Anion Gap 7 (5-15); Aspartate Aminotransferase 34 U/L (13-40); BUN/Creatinine Ratio 15.2 (10.0-20.0); Bilirubin, Total 0.7 mg/dL (0.2-1.0); Blood Urea Nitrogen 15 mg/dL (9-23); Carbon Dioxide 26 mmol/L (20-31); Chloride 105 mmol/L (98-107); Sodium 138 mmol/L (136-145)
[2024-11-18 03:57] LABS: Base Excess -0.5 mmol/L (-2.0-3.0)
[2024-11-18 03:59] LABS: Calcium 8.5 mg/dL (8.7-10.4); Glucose 61 mg/dL (74-106); Potassium 3.2 mmol/L (3.5-5.1); Total Protein 5.6 g/dL (5.7-8.2)
[2024-11-18] MEDS: CALCIUM GLUC 1,000mg/50ml-NS 50 ML IV ONE (04:43)
[2024-11-18] MEDS: POTASSIUM CHL 20MEQ/100ML 100 ML IV ONE ×2 (04:44→12:30)
[2024-11-18] MEDS: D5W/SOD CHLO 0.9% 1,000 ML IV SCH (04:44)
[2024-11-18] MEDS: THIAMINE HCL 100 MG TAB PO SCH (09:00)
[2024-11-18] MEDS ORDERED: cefTRIAXone 1GM/50ML D5W 50 ML IV SCH (09:00)
[2024-11-18] MEDS ORDERED: VANCOMYCIN 1GM/250ML KIT 250 ML IV SCH (10:00)
[2024-11-18] MEDS ORDERED: VANCOMYCIN PER PHARMACY 0 MG IV SCH (10:00)
[2024-11-18] MEDS: VANCOMYCIN 750MG KIT 100 ML IV SCH (10:15)
--- NOTE | 2024-11-18 11:22 | DVHINCON2 ---
Date of service: Nov 17, 2024 Referring Physician RADHA Fernandez Reason for Consultation Ventilator management, bronchoscopy, central line History of Present Illness 69-year-old man history of diabetes mellitus type 2, left hip surgery who presented with multiple falls and general weakness. He aspirated and desaturated. He was emergently intubated by ED physician. I was called emergently to the bedside due to possible pneumothorax on chest x-ray. Pulmonary consultation called for ventilator management, possible left pneumothorax. Review of systems: Unable to obtain due to patient's critical condition. Past medical history: Diabetes mellitus type 2 Past surgical history: Left hip surgery Medications: Reviewed Allergies: Penicillins. Family history: No family history of premature CAD. No family history of lung disease Social history: Marijuana smoker. Smokes less than one pack per day. No alcohol use. Allergies: Coded Allergies: Penicillins (Verified Allergy, Unknown, 11/16/24) Current Medications Current Medications Medications (Trade) Dose Ordered Sig/Hilario Route PRN Reason Start Time Stop Time Status Last Admin Thiamine HCl 100 mg DAILY PO 11/18/24 10:00 11/18/24 09:00 Metronidazole 100 ml @ 100 mls/hr Q8HR IV 11/17/24 22:00 11/17/24 17:46 DC Ceftriaxone Sodium 50 ml @ 100 mls/hr DAILY@09 IV 11/18/24 09:00 11/17/24 18:25 DC Midazolam HCl 50 ml @ 1 mls/hr Q24H IV 11/17/24 17:15 11/18/24 09:01 Clindamycin Phosphate 50 ml @ 50 mls/hr Q8HR IV 11/17/24 22:00 11/18/24 06:14 Vancomycin HCl 250 ml @ 250 mls/hr DAILY IV 11/18/24 10:00 11/18/24 10:03 DC Fentanyl Citrate 250 ml @ 2.5 mls/hr Q24H IV 11/17/24 19:00 11/18/24 07:00 Norepinephrine Bitartrate 250 ml @ 3.75 mls/hr Q24H IV 11/17/24 23:45 11/18/24 09:01 Dextrose/Sodium Chloride 1,000 ml @ 60 mls/hr [id number] IV 11/18/24 04:30 11/18/24 04:44 Vancomycin HCl 0 ml @ 0 mls/hr UD IV 11/18/24 10:00 Vancomycin HCl 100 ml @ 100 mls/hr Q12HR IV 11/18/24 10:15 Vital Signs Vital Signs Date Time Temp Pulse Resp B/P (MAP) Pulse Ox O2 Delivery O2 Flow Rate FiO2 11/18/24 10:15 99.5 63 20 92/58 (69) 100 211.1 11/18/24 09:50 40 11/18/24 09:40 Mechanical Ventilator+ 11/17/24 08:00 0 Physical Exam Gen.: Patient lying in bed in medical ICU. Sedated, intubated on mechanical ventilator. Head: Normocephalic, atraumatic. Eyes: PERRLA. Ears: Normal external anatomy. Throat: Endotracheal tube and orogastric tube in place. Neck: Supple, trachea midline. Chest: Transmitted breath sounds bilaterally. Decreased air entry bilaterally. No wheezing. Bibasilar crackles. Cardio vascular: Positive S1, positive S2. Regular rate and rhythm. Abdomen: Positive bowel sounds in all 4 quadrants. Soft, nontender, nondistended. : Fraire in place. Normal external genitalia. Rectal: Deferred Skin: Warm, dry. Intact. Extremities: 2+ radial pulses bilaterally. No lower extremity edema. Neuro: Sedated. Labs/Diagnostic Data Labs Test 11/18/24 08:17 11/18/24 07:50 11/18/24 03:45 11/18/24 03:41 Range/Units Magnesium Level 1.7 1.6-2.6 mg/dL POC Glucose 199 H 70-106 mg/dl Lactic Acid Level 1.4 0.4-2.0 mmol/L Blood Gas Specimen Type Arterial Blood Gas Sample Site Left radial Blood Gas Patient Temperature 37.0 Arterial Blood Date Drawn [id number] Arterial Blood pH 7.498 H 7.350-7.450 Arterial Blood Partial Pressure CO2 28.5 L 35.0-48.0 mmHg Arterial Blood Partial Pressure O2 131.5 H 83.0-108.0 mmHg Arterial Blood HCO3 21.6 21.0-28.0 mmol/L Arterial Blood Oxygen Saturation 98.8 H 94.0-98.0 % Arterial Blood Base Excess -0.5 -2.0-3.0 mmol/L Arterial Blood Oxyhemoglobin 97.7 94.0-98.0 % Arterial Blood Carboxyhemoglobin 0.6 0.5-1.5 % Arterial Blood Methemoglobin 0.5 0.0-1.5 % John Test Modified Blood Gas Total Hemoglobin 12.90 L 13.5-17.5 g/dL Blood Gas Set Respiration Rate 20.0 Blood Gas Modality Vent - ac FiO2 % 40.0 Blood Gas Tidal Volume 450.0 Blood Gas PEEP or CPAP 5.0 Test 11/18/24 03:20 11/17/24 17:03 11/16/24 14:19 11/16/24 14:17 Range/Units White Blood Count 8.5 # 4.4-10.8 10^3/uL Red Blood Count 3.76 L 4.5-5.90 10^6/uL Hemoglobin 12.0 L 13.5-17.5 g/dL Hematocrit 35.0 #L 41.0-53.0 % Mean Corpuscular Volume 93.0 80.0-100.0 fL Mean Corpuscular Hemoglobin 31.9 28.0-32.0 pg Mean Corpuscular Hemoglobin Concent 34.3 32.0-36.0 g/dL Red Cell Distribution Width 13.6 11.8-14.3 % Platelet Count 176 140-450 10^3/uL Mean Platelet Volume 8.9 6.9-10.8 fL Neutrophils (%) (Auto) 86.8 H 37.0-80.0 % Lymphocytes (%) (Auto) 7.0 L 10.0-50.0 % Monocytes (%) (Auto) 6.0 0.0-12.0 % Eosinophils (%) (Auto) 0.0 0.0-7.0 % Basophils (%) (Auto) 0.2 0.0-2.0 % Neutrophils # (Auto) 7.4 1.6-8.6 10 ^3/uL Lymphocytes # (Auto) 0.6 0.4-5.4 10 ^3/uL Monocytes # (Auto) 0.5 0-1.3 10 ^3/uL Eosinophils # (Auto) 0 0-0.8 10 ^3/uL Basophils # (Auto) 0 0-0.2 10 ^3/uL Nucleated Red Blood Cells 0.0 % Sodium Level 138 136-145 mmol/L Potassium Level 3.2 L 3.5-5.1 mmol/L Chloride Level 105 98-107 mmol/L Carbon Dioxide Level 26 20-31 mmol/L Anion Gap 7 5-15 Blood Urea Nitrogen 15 9-23 mg/dL Creatinine 0.99 0.700-1.30 mg/dL Glomerular Filtration Rate Calc 83 >90 mL/min BUN/Creatinine Ratio 15.2 10.0-20.0 Serum Glucose 61 L 74-106 mg/dL Calcium Level 8.5 L 8.7-10.4 mg/dL Total Bilirubin 0.7 0.2-1.0 mg/dL Aspartate Amino Transferase (AST) 34 13-40 U/L Alanine Aminotransferase (ALT) 29 7-40 U/L Alkaline Phosphatase 110 46-116 U/L Total Protein 5.6 L 5.7-8.2 g/dL Albumin 3.4 3.2-4.8 g/dL Blood Gas Liter Flow 10.00 Urine Color Light-yellow Yellow Urine Clarity Clear Clear Urine pH 5.0 5.0-9.0 Urine Specific [place] 1.033 1.001-1.035 Urine Protein Negative Negative Urine Ketones 1+ H Negative Urine Blood Negative Negative /uL Urine Nitrite Negative Negative Urine Bilirubin Negative Negative Urine Urobilinogen Normal Negative mg/dL Urine Leukocyte Esterase Negative Negative /uL Urine RBC 1 0 - 3 /hpf Urine Microscopic WBC 1 0-3 /HPF Urine Squamous Epithelial Cells Few <5 /hpf Urine Bacteria None seen None Seen /hpf Urine Glucose 4+ H Normal mg/dL Serum Osmolality 305 H 278-298 mOsm/kg Phosphorus Level 2.7 2.4-5.1 mg/dL Beta-Hydroxybutyric Acid 1.140 H < 0.4 mmol/L Thyroid Stimulating Hormone (TSH) 2.44 0.55-4.78 uIU/mL Test 11/16/24 14:16 11/16/24 10:43 Range/Units Urine Opiates Screen Neg NEGATIVE Urine Fentanyl Screen Neg NEGATIVE Urine Barbiturates Screen Neg NEGATIVE Urine Phencyclidine Screen Neg NEGATIVE Urine Amphetamines Screen Neg NEGATIVE Urine Benzodiazepines Screen Neg NEGATIVE Urine Cocaine Screen Neg NEGATIVE Urine Cannabinoids Screen Neg NEGATIVE Hemoglobin A1c > 14.0 H <5.7 % A1C Assessment Impression: Acute hypoxic respiratory failure On mechanical ventilator Aspiration pneumonia Cachexia, BMI 17.4 Diabetic ketoacidosis with uncontrolled type 2 diabetes mellitus Hyponatremia Hyperkalemia Plan: s/p intubation on mechanical ventilator CXR image and report reviewed. Critical resolved pneumothorax. Limited chest ultrasound at bedside revealed lung sliding throughout right lung field. Stat CT chest without contrast for evaluation. No chest tube was placed. Central line placed for pressor administration and blood draws. Informed consent obtained. Bronchoscopy performed with clearance of mucous plugging. See separate procedure notes for above procedures. ABG reviewed. Alkalemia On assist control with a respiratory rate of 20, tidal volume 450, peep of five, FiO2 at 100%. Titrate FIO2 to keep O2 saturation above 92%. VAP bundle Daily ABG and CXR while intubated. Sedate for ventilatory synchrony On pressor pressors for hemodynamic support. On Levophed Titrate to keep MAP above 65 mmHg/SBP above 90 mmHg. Continue antibiotics. F/u cultures. Monitor renal function Monitor electrolytes. Supplement as necessary. Monitor ins and outs On insulin drip Accucheks, ISS. GI/DVT prophylaxis. Condition: Critical Prognosis: Poor given multiple comorbidities. Rest of plan per hospitalist and other consultants. A total of 36 minutes of critical care time was spent reviewing the patient record, examining the patient, making a diagnostic and therapeutic plan, discussing this plan with the medical personnel, following up on diagnostic s tudies and following the patient for clinical stability excluding any and all procedures. At least 50% of this time was spent in direct, [id number] contact. Thank you RADHA Fernandez for allowing me to participate in this patient's care. Further recommendations will depend on patient's clinical course. Please do not hesitate to contact me if you have any questions or concerns. This medical document was created using an electronic medical record system with [employer] dictation system. Although this document has been carefully reviewed, there may still be some phonetic and typographical errors. These areas are purely typographical due to imperfections of the software programs, and do not reflect any compromise in the patient's medical care. Plan discussed with: Other (GOVIND Augustine, RT) LIDIA RAY MD Nov 18, 2024 11:21
[2024-11-18] MEDS: MAGNESIUM SULFATE 1GM/100ML 100 ML IV SCH (13:09)
--- NOTE | 2024-11-18 18:06 | DVHPN2 ---
Subjective intubated and sedated Changes from previous H/P or p: No Changes Eyes: No Pain, No Vision change, No Conjunctivae inflammation, No Eyelid inflammation, No Other, No Redness ENT: No Ear pain, No Ear discharge, No Nose pain, No Nose discharge, No Nose congestion, No Mouth pain, No Mouth swelling, No Throat pain, No Throat swelling, No Other Cardiovascular: No Chest Pain, No Palpitations, No Orthopnea, No Paroxysmal Noc. Dyspnea, No Edema, No Lt Headedness, No Other Respiratory: No Cough, No Dry, No Shortness of breath, No SOB with excertion, No Wheezing, No Hemoptysis, No Pleuritic Pain, No Sputum, No Other Gastrointestinal: No Nausea, No Vomiting, No Abdominal Pain, No Diarrhea, No Constipation, No Melena, No Hematochezia, No Other Genitourinary: No Dysuria, No Frequency, No Incontinence, No Hematuria, No Retention, No Other Musculoskeletal: No other, No neck pain, No shoulder pain, No arm pain, No back pain, No hand pain, No leg pain, No foot pain Skin: Bruising Objective Vitals Vital Signs Date Time Temp Pulse Resp B/P (MAP) Pulse Ox O2 Delivery O2 Flow Rate FiO2 11/18/24 17:45 40 11/18/24 17:45 99.5 66 16 91/60 (70) 100 211.1 11/18/24 09:40 Mechanical Ventilator+ 11/17/24 08:00 0 Intake/Output Intake and Output 11/18/24 07:00 Intake Total 767.6875 ml Balance 767.6875 ml IV Total 767.6875 ml General Appearance: severe distress, Other (intubated and sedated) Lungs: Clear to auscultation Cardiovascular: Regular rate Musculoskeletal: Other (moving all extremities) Medications Current Medications Medications Dose Ordered Sig/Hilario Route Start Time Stop Time Status Last Admin Dose Admin Insulin Glargine 15 units DAILY SC 11/17/24 10:00 11/18/24 09:00 15 UNITS Ondansetron HCl 4 mg Q4HP PRN IV 11/16/24 13:15 Acetaminophen 650 mg Q6HP PRN PO 11/16/24 13:15 Diagnostic Test (Pha) 1 strip IQ4HR 11/17/24 00:00 11/18/24 15:49 1 STRIP Insulin Human Regular IQ4HR SC 11/17/24 00:00 11/18/24 16:04 2 UNITS Dextrose 50 ml UD PRN IV 11/16/24 21:15 Thiamine HCl 100 mg DAILY PO 11/18/24 10:00 11/18/24 09:00 100 MG Folic Acid 1 mg DAILY PO 11/17/24 10:00 11/18/24 09:00 1 MG Multivitamins 1 tab DAILY PO 11/17/24 10:00 11/18/24 09:00 1 TAB Lorazepam 1 mg Q2HPRN PRN IV 11/17/24 10:00 Midazolam HCl 50 ml @ 1 mls/hr Q24H IV 11/17/24 17:15 11/18/24 09:01 6 MLS/HR Clindamycin Phosphate 50 ml @ 50 mls/hr Q8HR IV 11/17/24 22:00 11/18/24 13:09 50 MLS/HR Fentanyl Citrate 250 ml @ 2.5 mls/hr Q24H IV 11/17/24 19:00 11/18/24 07:00 2.5 MLS/HR Norepinephrine Bitartrate 250 ml @ 3.75 mls/hr Q24H IV 11/17/24 23:45 11/18/24 15:42 45 MLS/HR Dextrose/Sodium Chloride 1,000 ml @ 60 mls/hr [id number] IV 11/18/24 04:30 11/18/24 04:44 60 MLS/HR Vancomycin HCl 0 ml @ 0 mls/hr UD IV 11/18/24 10:00 Vancomycin HCl 100 ml @ 100 mls/hr Q12HR IV 11/18/24 10:15 11/18/24 10:15 100 MLS/HR Laboratory Results Laboratory Tests 11/18/24 03:20 Chemistry Test 11/18/24 03:20 11/18/24 08:17 Albumin 3.4 g/dL (3.2-4.8) Calcium Level 8.5 mg/dL (8.7-10.4) L Total Protein 5.6 g/dL (5.7-8.2) L Magnesium Level 1.7 mg/dL (1.6-2.6) LFT Test 11/18/24 03:20 Alanine Aminotransferase (ALT) 29 U/L (7-40) Alkaline Phosphatase 110 U/L (46-116) Aspartate Amino Transferase (AST) 34 U/L (13-40) Total Bilirubin 0.7 mg/dL (0.2-1.0) Urinalysis Test 11/16/24 14:19 Urine Color Light-yellow (Yellow) Urine Clarity Clear (Clear) Urine pH 5.0 (5.0-9.0) Urine Specific [place] 1.033 (1.001-1.035) Urine Protein Negative (Negative) Urine Ketones 1+ (Negative) H Urine Blood Negative /uL (Negative) Urine Nitrite Negative (Negative) Urine Bilirubin Negative (Negative) Urine Urobilinogen Normal mg/dL (Negative) Urine Leukocyte Esterase Negative /uL (Negative) Urine RBC 1 /hpf (0 - 3) Urine Microscopic WBC 1 /HPF (0-3) Urine Squamous Epithelial Cells Few /hpf (<5) Urine Bacteria None seen /hpf (None Seen) Urine Glucose 4+ mg/dL (Normal) H Blood Gas Results Test 11/17/24 19:34 11/18/24 03:41 Arterial Blood pH 7.462 (7.350-7.450) 7.498 (7.350-7.450) FiO2 % 100.0 40.0 Microbiology Microbiology Date/Time Source Procedure Growth Status 11/17/24 18:54 Bronchial Washings Gram Stain - Final Resulted 11/17/24 18:54 Bronchial Washings Respiratory Culture - Preliminary Resulted Assessment/Plan Assessment/Plan DKA with uncontrolled DM Type 2 Hyponatremia Hyperkalemia AG and glucose back to normal Off insulin and on long acting Monitor accuchecks Acute metabolic encephalopathy Possible Wernicke IV thiamin and B12 MRI brain, EEG Monitor electrolytes CT head > no stroke Neurology on consult Acute hypoxic respiratory failure Aspiration He aspirated while having lunch IV clinda and rocephin Intubated by ED Pulm consult managing vent Septic Shock On levophed to keep MAP >65 IV abx FEN/PPX Diet IV fluids PUD ppx not indicated no hx of GERD DVT ppx not indicated patient ambulating Critical care time was 59 minutes Plan discussed with: Other (niece) My Orders Orders - ANDRÉS SAUCEDA MD Procedure Category Date Status Time * Wound Consult CONS 11/18/24 Transmitted * Dietary Consult CONS 11/18/24 Transmitted 12:44 Complete Blood Count LAB 11/19/24 Verified 04:00 Comprehensive LAB 11/19/24 Verified Metabolic Panel 04:00 Magnesium LAB 11/19/24 Verified 04:00 Mrsa Screen LARRY 11/18/24 In Process 15:32 Date of Service: Nov 18, 2024 Billing Provider: ANDRÉS SAUCEDA MD Common Visit Codes: 15021-[id number] CARE 30-74 MIN ANDRÉS SAUCEDA MD Nov 18, 2024 18:06
--- NOTE | 2024-11-18 18:46 | DVHPN2 ---
Progress Note - Dictate Date Seen: Nov 18, 2024 Medical Necessity Reason Pt with a Central, PICC or Fol: Yes The following are medically ne: Central Line Subjective Patient seen and examined at bedside. Sedated, intubated on mechanical ventilator. Overnight events reviewed. vital signs Vital Sign Date Time Temp Pulse Resp B/P (MAP) Pulse Ox O2 Delivery O2 Flow Rate FiO2 11/18/24 17:45 40 11/18/24 17:45 99.5 66 16 91/60 (70) 100 211.1 11/18/24 09:40 Mechanical Ventilator+ 11/17/24 08:00 0 Total Intake and Output 11/17/24 11/17/24 11/18/24 15:00 23:00 07:00 Intake Total 30.0 ml 737.6875 ml Balance 30.0 ml 737.6875 ml medications Current Medications Medications Dose Ordered Sig/Hilario Route Start Time Stop Time Status Last Admin Dose Admin Insulin Glargine 15 units DAILY SC 11/17/24 10:00 11/18/24 09:00 15 UNITS Ondansetron HCl 4 mg Q4HP PRN IV 11/16/24 13:15 Acetaminophen 650 mg Q6HP PRN PO 11/16/24 13:15 Diagnostic Test (Pha) 1 strip IQ4HR 11/17/24 00:00 11/18/24 15:49 1 STRIP Insulin Human Regular IQ4HR SC 11/17/24 00:00 11/18/24 16:04 2 UNITS Dextrose 50 ml UD PRN IV 11/16/24 21:15 Thiamine HCl 100 mg DAILY PO 11/18/24 10:00 11/18/24 09:00 100 MG Folic Acid 1 mg DAILY PO 11/17/24 10:00 11/18/24 09:00 1 MG Multivitamins 1 tab DAILY PO 11/17/24 10:00 11/18/24 09:00 1 TAB Lorazepam 1 mg Q2HPRN PRN IV 11/17/24 10:00 Midazolam HCl 50 ml @ 1 mls/hr Q24H IV 11/17/24 17:15 11/18/24 09:01 6 MLS/HR Clindamycin Phosphate 50 ml @ 50 mls/hr Q8HR IV 11/17/24 22:00 11/18/24 13:09 50 MLS/HR Fentanyl Citrate 250 ml @ 2.5 mls/hr Q24H IV 11/17/24 19:00 11/18/24 07:00 2.5 MLS/HR Norepinephrine Bitartrate 250 ml @ 3.75 mls/hr Q24H IV 11/17/24 23:45 11/18/24 15:42 45 MLS/HR Dextrose/Sodium Chloride 1,000 ml @ 60 mls/hr [id number] IV 11/18/24 04:30 11/18/24 04:44 60 MLS/HR Vancomycin HCl 0 ml @ 0 mls/hr UD IV 11/18/24 10:00 Vancomycin HCl 100 ml @ 100 mls/hr Q12HR IV 11/18/24 10:15 11/18/24 10:15 100 MLS/HR objective Gen.: Patient lying in bed in medical ICU. Sedated, intubated on mechanical ventilator. Head: Normocephalic, atraumatic. Eyes: PERRLA. Ears: Normal external anatomy. Throat: Endotracheal tube and orogastric tube in place. Neck: Supple, trachea midline. Chest: Transmitted breath sounds bilaterally. Decreased air entry bilaterally. No wheezing. Bibasilar crackles. Cardiovascular: Positive S1, positive S2. Regular rate and rhythm. Abdomen: Positive bowel sounds in all 4 quadrants. Soft, nontender, nondistended. : Fraire in place. Normal external genitalia. Rectal: Deferred. Skin: Warm, dry. Intact. Extremities: 2+ radial pulses bilaterally. No lower extremity edema. Neuro: Sedated. laboratory and microbiology Laboratory Tests 11/18/24 03:20 Test 11/18/24 03:20 Range/Units Serum Glucose 61 L 74-106 mg/dL Assessment/Plan Impression: Acute hypoxic respiratory failure On mechanical ventilator Aspiration pneumonia Cachexia, BMI 17.4 Diabetic ketoacidosis with uncontrolled type 2 diabetes mellitus Hyponatremia Hyperkalemia Events: Remains on vent support On assist control with a respiratory rate of 20, tidal volume 450, PEEP of 5, FiO2 100-->40% Improved O2 requirements Reduce VT to 400 and RR to 18 BPM Titrate FIO2 to keep O2 saturation above 92%. CXR image and report reviewed. Devices in place. No pneumothorax. Confirmed with CT chest: No pneumothorax. GGOs in RUL. Subcutaneous emphysema in right neck. Bibasilar atelectasis. ABG reviewed, notable for alkalemia Sedated on Versed, Fentanyl On pressors for hemodynamic support. On Levophed 24 mcg/min Titrate to keep MAP above 65 mmHg/SBP above 90 mmHg. Continue antibiotics. F/u cultures. Monitor hemoglobin -12 g/dL Monitor renal function Monitor electrolytes. Supplement as necessary. Supplement potassium Accu-Cheks, ISS - on insulin drip Labs and imaging reviewed. Rest of plan as noted below. Plan: s/p intubation on mechanical ventilator Central line placed for pressor administration and blood draws. Informed consent obtained. Bronchoscopy performed on 11/17 with clearance of mucous plugging. See separate procedure notes for above procedures. On assist control with a respiratory rate of 20, tidal volume 450, PEEP of 5, FiO2 at 40%. Reduce VT to 400 and RR to 18 BPM Titrate FIO2 to keep O2 saturation above 92%. VAP bundle Daily ABG and CXR while intubated. Sedate for ventilatory synchrony On pressors for hemodynamic support. Titrate to keep MAP above 65 mmHg/SBP above 90 mmHg. Continue antibiotics. F/u cultures. Monitor renal function Monitor electrolytes. Supplement as necessary. Monitor ins and outs On insulin drip Accucheks, ISS. GI/DVT prophylaxis. Condition: Critical Prognosis: Poor given multiple comorbidities. Rest of plan per hospitalist and other consultants. A total of 35 minutes of critical care time was spent reviewing the patient record, examining the patient, making a diagnostic and therapeutic plan, discussing this plan with the medical personnel, following up on diagnostic studies and following the patient for clinical stability excluding any and all procedures. At least 50% of this time was spent in direct, [id number] contact. Thank you RADHA Fernandez for allowing me to participate in this patient's care. Further recommendations will depend on patient's clinical course. Please do not hesitate to contact me if you have any questions or concerns. This medical document was created using an electronic medical record system with [employer] system. Although this document has been carefully reviewed, there may still be some phonetic and typographical errors. These areas are purely typographical due to imperfections of the software programs, and do not reflect any compromise in the patient's medical care. Dietary Evaluation Review Comments: 1. If pt remains Intubated consider TF Glucerna 1.2 @ 1152 Kcal 58g Protein 773ml Free Water 2. Consider advancing to PO diet when medically appropriate 3. If TF is not appropriate, consider TPN per pharmacy Expected Outcomes/Goals: 1. Pt will meet >75% of nutritional needs within 2-3 days Plan discussed with: Other (GOVIND Pedroza) Critical Care Time(min): 35 LIDIA RAY MD Nov 18, 2024 18:46
[2024-11-18] MEDS: DEXTROSE (50%) 50ML SYRG IV PRN (20:38)
[2024-11-18] MEDS: PHENYLEPHRINE IV 250 ML IV SCH (21:45)
[2024-11-19] VITALS (110 sets, daily range): BP systolic 92–114; BP diastolic 42–65; PULSE 53–66; RESP 12–20; TEMP 97.8–99.9; O2SAT 98–100
--- NOTE | 2024-11-19 04:59 | DVH ---
EXAM: XY CHEST XRAY 1 VIEW HISTORY: interval changes COMPARISON: XY CHEST XRAY 1 VIEW on DOS: 11/17/24 TECHNIQUE: Portable upright AP view of the chest was performed. FINDINGS: Endotracheal tube is re-identified with its tip 4.6 cm above the elkin. OG tube right IJ central yas e are re-identified. There has been interval development of left basilar infiltrate and possible effu willy, now obscuring the left hemidiaphragm. The right lung is clear. No pneumothorax. The heart is not enlarged. IMPRESSION: 1. Mechanical ventilation with tubes and lines as above. 2. New left basilar pneumonia and possible pleural effusion.
[2024-11-19 05:35] LABS: Basophils # (auto) 0 10 ^3/uL (0-0.2); Basophils % (auto) 0.1 % (0.0-2.0); Eosinophils # (auto) 0 10 ^3/uL (0-0.8); Eosinophils % (auto) 0.1 % (0.0-7.0); Hematocrit 33.6 % (41.0-53.0); Hemoglobin 11.2 g/dL (13.5-17.5); Lymphocytes # (auto) 1.1 10 ^3/uL (0.4-5.4); Lymphocytes % (auto) 10.3 % (10.0-50.0); Mean Corpuscular Hemoglobin 31.9 pg (28.0-32.0); Mean Corpuscular Hgb Conc. 33.4 g/dL (32.0-36.0); Mean Corpuscular Volume 95.3 fL (80.0-100.0); Monocytes # (auto) 0.6 10 ^3/uL (0-1.3); Monocytes % (auto) 6.2 % (0.0-12.0); Neutrophils # (auto) 8.6 10 ^3/uL (1.6-8.6); Neutrophils % (auto) 83.3 % (37.0-80.0); Platelet Count (auto) 157 10^3/uL (140-450); Red Blood Cells 3.53 10^6/uL (4.5-5.90); Red Cell Distribution Width 13.7 % (11.8-14.3); White Blood Cell 10.3 10^3/uL (4.4-10.8)
[2024-11-19 05:46] LABS: Alanine Aminotransferase 29 U/L (7-40); Albumin 3.2 g/dL (3.2-4.8); Alkaline Phosphatase 105 U/L (46-116); Anion Gap 7 (5-15); Aspartate Aminotransferase 39 U/L (13-40); BUN/Creatinine Ratio 20.9 (10.0-20.0); Bilirubin, Total 0.5 mg/dL (0.2-1.0); Blood Urea Nitrogen 19 mg/dL (9-23); Carbon Dioxide 22 mmol/L (20-31); Magnesium 2.3 mg/dL (1.6-2.6); Potassium 4.5 mmol/L (3.5-5.1); Sodium 137 mmol/L (136-145)
[2024-11-19 05:58] LABS: Calcium 8.5 mg/dL (8.7-10.4); Chloride 108 mmol/L (98-107); Glucose 165 mg/dL (74-106); Total Protein 5.3 g/dL (5.7-8.2)
[2024-11-19 06:57] LABS: Base Excess -7.2 mmol/L (-2.0-3.0)
[2024-11-19] MEDS ORDERED: Glucerna 1.2 Cal 1Liter BOTTLE GT SCH (12:45)
--- NOTE | 2024-11-19 14:34 | DVHPN2 ---
Subjective intubated and sedated Changes from previous H/P or p: No Changes Eyes: No Pain, No Vision change, No Conjunctivae inflammation, No Eyelid inflammation, No Other, No Redness ENT: No Ear pain, No Ear discharge, No Nose pain, No Nose discharge, No Nose congestion, No Mouth pain, No Mouth swelling, No Throat pain, No Throat swelling, No Other Cardiovascular: No Chest Pain, No Palpitations, No Orthopnea, No Paroxysmal Noc. Dyspnea, No Edema, No Lt Headedness, No Other Respiratory: No Cough, No Dry, No Shortness of breath, No SOB with excertion, No Wheezing, No Hemoptysis, No Pleuritic Pain, No Sputum, No Other Gastrointestinal: No Nausea, No Vomiting, No Abdominal Pain, No Diarrhea, No Constipation, No Melena, No Hematochezia, No Other Genitourinary: No Dysuria, No Frequency, No Incontinence, No Hematuria, No Retention, No Other Musculoskeletal: No other, No neck pain, No shoulder pain, No arm pain, No back pain, No hand pain, No leg pain, No foot pain Skin: Bruising Objective Vitals Vital Signs Date Time Temp Pulse Resp B/P (MAP) Pulse Ox O2 Delivery O2 Flow Rate FiO2 11/19/24 14:05 64 18 103/42 (62) 100 30 11/19/24 12:30 99.3 210.7 11/19/24 11:51 Mechanical Ventilator+ 11/17/24 08:00 0 Intake/Output Intake and Output 11/19/24 07:00 Intake Total 3367.75 ml Output Total 500 ml Balance 2867.75 ml Intake Oral 100 ml IV Total 3267.75 ml Output Urine Total 500 ml # Bowel Movements 1 General Appearance: severe distress, Other (intubated and sedated) Lungs: Clear to auscultation Cardiovascular: Regular rate Musculoskeletal: Other (moving all extremities) Medications Current Medications Medications Dose Ordered Sig/Hilario Route Start Time Stop Time Status Last Admin Dose Admin Insulin Glargine 15 units DAILY SC 11/17/24 10:00 11/18/24 09:00 15 UNITS Ondansetron HCl 4 mg Q4HP PRN IV 11/16/24 13:15 Acetaminophen 650 mg Q6HP PRN PO 11/16/24 13:15 Diagnostic Test (Pha) 1 strip IQ4HR 11/17/24 00:00 11/19/24 11:50 1 STRIP Insulin Human Regular IQ4HR SC 11/17/24 00:00 11/19/24 03:37 3 UNITS Dextrose 50 ml UD PRN IV 11/16/24 21:15 11/18/24 20:38 50 ML Thiamine HCl 100 mg DAILY PO 11/18/24 10:00 11/19/24 08:07 100 MG Folic Acid 1 mg DAILY PO 11/17/24 10:00 11/19/24 08:07 1 MG Multivitamins 1 tab DAILY PO 11/17/24 10:00 11/19/24 08:07 1 TAB Lorazepam 1 mg Q2HPRN PRN IV 11/17/24 10:00 Midazolam HCl 50 ml @ 1 mls/hr Q24H IV 11/17/24 17:15 11/19/24 06:27 5 MLS/HR Clindamycin Phosphate 50 ml @ 50 mls/hr Q8HR IV 11/17/24 22:00 11/19/24 12:30 50 MLS/HR Fentanyl Citrate 250 ml @ 2.5 mls/hr Q24H IV 11/17/24 19:00 11/19/24 08:07 10 MLS/HR Norepinephrine Bitartrate 250 ml @ 3.75 mls/hr Q24H IV 11/17/24 23:45 11/19/24 12:45 26.25 MLS/HR Dextrose/Sodium Chloride 1,000 ml @ 60 mls/hr [id number] IV 11/18/24 04:30 11/18/24 23:31 60 MLS/HR Vancomycin HCl 0 ml @ 0 mls/hr UD IV 11/18/24 10:00 Vancomycin HCl 100 ml @ 100 mls/hr Q12HR IV 11/18/24 10:15 11/19/24 09:06 100 MLS/HR Phenylephrine HCl 250 ml @ 30 mls/hr Q8H20M IV 11/18/24 21:15 11/18/24 21:45 30 MLS/HR Enteral Nutritional Formula 1,000 ml 30ML/HR GT 11/19/24 12:45 Laboratory Results Laboratory Tests 11/19/24 04:56 Chemistry Test 11/19/24 04:56 Albumin 3.2 g/dL (3.2-4.8) Calcium Level 8.5 mg/dL (8.7-10.4) L Magnesium Level 2.3 mg/dL (1.6-2.6) Total Protein 5.3 g/dL (5.7-8.2) L LFT Test 11/19/24 04:56 Alanine Aminotransferase (ALT) 29 U/L (7-40) Alkaline Phosphatase 105 U/L (46-116) Aspartate Amino Transferase (AST) 39 U/L (13-40) Total Bilirubin 0.5 mg/dL (0.2-1.0) Urinalysis Test 11/16/24 14:19 Urine Color Light-yellow (Yellow) Urine Clarity Clear (Clear) Urine pH 5.0 (5.0-9.0) Urine Specific [place] 1.033 (1.001-1.035) Urine Protein Negative (Negative) Urine Ketones 1+ (Negative) H Urine Blood Negative /uL (Negative) Urine Nitrite Negative (Negative) Urine Bilirubin Negative (Negative) Urine Urobilinogen Normal mg/dL (Negative) Urine Leukocyte Esterase Negative /uL (Negative) Urine RBC 1 /hpf (0 - 3) Urine Microscopic WBC 1 /HPF (0-3) Urine Squamous Epithelial Cells Few /hpf (<5) Urine Bacteria None seen /hpf (None Seen) Urine Glucose 4+ mg/dL (Normal) H Blood Gas Results Test 11/19/24 06:53 Arterial Blood pH 7.326 (7.350-7.450) FiO2 % 30.0 Microbiology Microbiology Date/Time Source Procedure Growth Status 11/18/24 15:30 Nose MRSA Screen - Final Complete 11/17/24 18:54 Bronchial Washings Gram Stain - Final Resulted 11/17/24 18:54 Bronchial Washings Respiratory Culture - Preliminary Resulted Assessment/Plan Assessment/Plan DKA with uncontrolled DM Type 2 Hyponatremia Hyperkalemia AG and glucose back to normal Off insulin and on long acting Monitor accuchecks Acute metabolic encephalopathy Possible Wernicke IV thiamin and B12 MRI brain, EEG Monitor electrolytes CT head > no stroke Neurology on consult Acute hypoxic respiratory failure Aspiration He aspirated while having lunch IV clinda and rocephin Intubated by ED Pulm consult managing vent Septic Shock On levophed to keep MAP >65 IV abx FEN/PPX Diet IV fluids PUD ppx not indicated no hx of GERD DVT ppx not indicated patient ambulating Critical care time was 59 minutes Plan discussed with: Daughter My Orders Orders - ANDRÉS SAUCEDA MD Procedure Category Date Status Time Nutritional PHA 11/19/24 In Process Supplements (Glucerna 12:45 Tube Feeding DIET 11/19/24 Transmitted Lunch Date of Service: Nov 19, 2024 Billing Provider: ANDRÉS SAUCEDA MD Common Visit Codes: [id number] CARE 30-74 MIN ANDRÉS SAUCEDA MD Nov 19, 2024 14:34
--- NOTE | 2024-11-19 19:35 | DVHPN2 ---
Progress Note - Dictate Date Seen: Nov 19, 2024 Medical Necessity Reason Pt with a Central, PICC or Fol: Yes The following are medically ne: Central Line Subjective Mr. Amin is a 69 years old right-handed gentleman with a history of diabetes, alcohol abuse, he was brought to the hospital on 11/16/24 with a chief company of multiple falls in lasts a few weeks. The patient is just intubated because aspiration and desaturation. I have seen and examined the patient, I have discussed with his nurse, he was intubated, responds to stroke painful stimuli, he has weak gag reflexes Fentanyl 100 mdg/hour, Versed 6 mg/hour, levo 12 mcg/hour UDS, 11/16/2024: Negative Urinalysis, 11/16/2024: WBC: 1, urine leukocyte esterase: Negative WBC/HB/PLT/MCV, 11/17/2024: 5.7/10.5/163/92.8 Anion gap, 11/16/2024: Eight, seven, seven CMP, 11/17/2024: Unremarkable Glucose, 11/16/2024: 640, 465, 55, 11/17/2024: 149 HGB A1c, 11/16/2024: >14 Beta hydroxide beauty uric acid, 11/16/2024: 1.14 TSH, 11/16/2024: 2.44 CT head, 11/16/24: No acute intracranial abnormality CT head, 11/17/2024: No acute intracranial abnormality CT head, 11/17/2024: No acute intracranial abnormality identified. No appreciable change compared to the prior CT scan from earlier the same day CT neck, 11/17/2024: No evidence of cervical mass lesion, foreign body, pathologically enlarged lymph nodes or fluid collection vital signs Vital Sign Date Time Temp Pulse Resp B/P (MAP) Pulse Ox O2 Delivery O2 Flow Rate FiO2 11/19/24 19:00 99.5 58 17 102/57 (72) 100 211.1 11/19/24 17:42 30 11/19/24 17:41 Mechanical Ventilator+ 11/17/24 08:00 0 Total Intake and Output 11/18/24 11/18/24 11/19/24 14:59 22:59 06:59 Intake Total 1207.25 ml 1109.50 ml 1032.50 ml Output Total 300 ml 200 ml Balance 1207.25 ml 809.50 ml 832.50 ml medications Current Medications Medications Dose Ordered Sig/Hilario Route Start Time Stop Time Status Last Admin Dose Admin Insulin Glargine 15 units DAILY SC 11/17/24 10:00 11/18/24 09:00 15 UNITS Ondansetron HCl 4 mg Q4HP PRN IV 11/16/24 13:15 Acetaminophen 650 mg Q6HP PRN PO 11/16/24 13:15 Diagnostic Test (Pha) 1 strip IQ4HR 11/17/24 00:00 11/19/24 16:11 1 STRIP Insulin Human Regular IQ4HR SC 11/17/24 00:00 11/19/24 03:37 3 UNITS Dextrose 50 ml UD PRN IV 11/16/24 21:15 11/18/24 20:38 50 ML Thiamine HCl 100 mg DAILY PO 11/18/24 10:00 11/19/24 08:07 100 MG Folic Acid 1 mg DAILY PO 11/17/24 10:00 11/19/24 08:07 1 MG Multivitamins 1 tab DAILY PO 11/17/24 10:00 11/19/24 08:07 1 TAB Lorazepam 1 mg Q2HPRN PRN IV 11/17/24 10:00 Midazolam HCl 50 ml @ 1 mls/hr Q24H IV 11/17/24 17:15 11/19/24 16:11 6 MLS/HR Clindamycin Phosphate 50 ml @ 50 mls/hr Q8HR IV 11/17/24 22:00 11/19/24 12:30 50 MLS/HR Fentanyl Citrate 250 ml @ 2.5 mls/hr Q24H IV 11/17/24 19:00 11/19/24 08:07 10 MLS/HR Norepinephrine Bitartrate 250 ml @ 3.75 mls/hr Q24H IV 11/17/24 23:45 11/19/24 12:45 26.25 MLS/HR Dextrose/Sodium Chloride 1,000 ml @ 60 mls/hr [id number] IV 11/18/24 04:30 11/19/24 16:11 60 MLS/HR Vancomycin HCl 0 ml @ 0 mls/hr UD IV 11/18/24 10:00 Vancomycin HCl 100 ml @ 100 mls/hr Q12HR IV 11/18/24 10:15 11/19/24 09:06 100 MLS/HR Phenylephrine HCl 250 ml @ 30 mls/hr Q8H20M IV 11/18/24 21:15 11/18/24 21:45 30 MLS/HR Enteral Nutritional Formula 1,000 ml 30ML/HR GT 11/19/24 12:45 objective The patient is well-nourished and well-developed with no distress. The patient is intubated MENTAL STATUS: Subjective, CRANIAL NERVES: Pupils are equal, round and nonreactive, small, there was doll's eye and corneal reflexes. No signs of facial weakness. There are weak gag reflexes SENSATION: Responds to stroke painful stimuli MOTOR: Normal tone in the upper and lower extremity. Normal muscle bulk. No fasciculations. No spontaneous extremity movement REFLEXES: Deep tendon reflexes are symmetrical. No pathological reflexes. CEREBELLAR/COORDINATION: Deferred GAIT/STATION: deferred. laboratory and microbiology Laboratory Tests 11/19/24 04:56 Test 11/19/24 04:56 Range/Units Serum Glucose 165 #H 74-106 mg/dL Problem List Altered mental status Metabolic encephalopathy ? Metabolic encephalopathy Toxic encephalopathy Hypoxic encephalopathy Acute respiratory failure/aspiration Gait disturbance, multifactorial Alcoholism Wernicke encephalopathy ? Right arm weakness (not confirmed with his nurse) Assessment/Plan Monitoring Supportive treatment EEG MRI brain scan ICU care Stabilize vitals Respiratory support/vent management Oxygen Thiamine supplementation Folic acid supplementation IV antibiotics Diabetes management More recommendation per clinical course This medical document was created using an electronic medical record system with [employer] computerized dictation system. Although this document has been carefully reviewed, there may still be some phonetic and typographical errors. These areas are purely typographical due to imperfections of the software programs, and do not reflect any compromise in the patient's medical care. Prognosis guarded Dietary Evaluation Review Comments: 1. If pt remains Intubated consider TF Glucerna 1.2 @ 1152 Kcal 58g Protein 773ml Free Water 2. Consider advancing to PO diet when medically appropriate 3. If TF is not appropriate, consider TPN per pharmacy Expected Outcomes/Goals: 1. Pt will meet >75% of nutritional needs within 2-3 days Plan discussed with: Other Critical Care Time(min): 35 ISAAC AHMADI MD Nov 19, 2024 19:35
--- NOTE | 2024-11-19 23:22 | DVHPN2 ---
Progress Note - Dictate Date Seen: Nov 19, 2024 Medical Necessity Reason Pt with a Central, PICC or Fol: Yes The following are medically ne: Central Line Subjective Patient seen and examined at bedside. Sedated, intubated on mechanical ventilator. Overnight events reviewed. vital signs Vital Sign Date Time Temp Pulse Resp B/P (MAP) Pulse Ox O2 Delivery O2 Flow Rate FiO2 11/19/24 22:49 96/57 11/19/24 22:37 55 18 100 30 11/19/24 22:15 99.0 210.2 11/19/24 22:00 Mechanical Ventilator+ 11/17/24 08:00 0 Total Intake and Output 11/18/24 11/18/24 11/19/24 15:00 23:00 07:00 Intake Total 1179.25 ml 1231.00 ml 957.50 ml Output Total 300 ml 200 ml Balance 1179.25 ml 931.00 ml 757.50 ml medications Current Medications Medications Dose Ordered Sig/Hilario Route Start Time Stop Time Status Last Admin Dose Admin Insulin Glargine 15 units DAILY SC 11/17/24 10:00 11/18/24 09:00 15 UNITS Ondansetron HCl 4 mg Q4HP PRN IV 11/16/24 13:15 Acetaminophen 650 mg Q6HP PRN PO 11/16/24 13:15 Diagnostic Test (Pha) 1 strip IQ4HR 11/17/24 00:00 11/19/24 20:11 1 STRIP Insulin Human Regular IQ4HR SC 11/17/24 00:00 11/19/24 20:10 2 UNITS Dextrose 50 ml UD PRN IV 11/16/24 21:15 11/18/24 20:38 50 ML Thiamine HCl 100 mg DAILY PO 11/18/24 10:00 11/19/24 08:07 100 MG Folic Acid 1 mg DAILY PO 11/17/24 10:00 11/19/24 08:07 1 MG Multivitamins 1 tab DAILY PO 11/17/24 10:00 11/19/24 08:07 1 TAB Lorazepam 1 mg Q2HPRN PRN IV 11/17/24 10:00 Midazolam HCl 50 ml @ 1 mls/hr Q24H IV 11/17/24 17:15 11/19/24 16:11 6 MLS/HR Clindamycin Phosphate 50 ml @ 50 mls/hr Q8HR IV 11/17/24 22:00 11/19/24 21:34 50 MLS/HR Fentanyl Citrate 250 ml @ 2.5 mls/hr Q24H IV 11/17/24 19:00 11/19/24 08:07 10 MLS/HR Norepinephrine Bitartrate 250 ml @ 3.75 mls/hr Q24H IV 11/17/24 23:45 11/19/24 22:49 22.5 MLS/HR Dextrose/Sodium Chloride 1,000 ml @ 60 mls/hr [id number] IV 11/18/24 04:30 11/19/24 16:11 60 MLS/HR Vancomycin HCl 0 ml @ 0 mls/hr UD IV 11/18/24 10:00 Vancomycin HCl 100 ml @ 100 mls/hr Q12HR IV 11/18/24 10:15 11/19/24 21:36 100 MLS/HR Phenylephrine HCl 250 ml @ 30 mls/hr Q8H20M IV 11/18/24 21:15 11/18/24 21:45 30 MLS/HR Enteral Nutritional Formula 1,000 ml 30ML/HR GT 11/19/24 12:45 objective Gen.: Patient lying in bed in medical ICU. Sedated, intubated on mechanical ventilator. Head: Normocephalic, atraumatic. Eyes: PERRLA. Ears: Normal external anatomy. Throat: Endotracheal tube and orogastric tube in place. Neck: Supple, trachea midline. Chest: Transmitted breath sounds bilaterally. Decreased air entry bilaterally. No wheezing. Bibasilar crackles. Cardiovascular: Positive S1, positive S2. Regular rate and rhythm. Abdomen: Positive bowel sounds in all 4 quadrants. Soft, nontender, nondistended. : Fraire in place. Normal external genitalia. Rectal: Deferred. Skin: Warm, dry. Intact. Extremities: 2+ radial pulses bilaterally. No lower extremity edema. Neuro: Sedated. laboratory and microbiology Laboratory Tests 11/19/24 04:56 Test 11/19/24 04:56 Range/Units Serum Glucose 165 #H 74-106 mg/dL Assessment/Plan Impression: Acute hypoxic respiratory failure On mechanical ventilator Aspiration pneumonia Cachexia, BMI 17.4 Diabetic ketoacidosis with uncontrolled type 2 diabetes mellitus Hyponatremia Hyperkalemia Events: Remains on vent support On assist control with a respiratory rate of 18, tidal volume 400, PEEP of 5, FiO2 30% Improved O2 requirements Titrate FIO2 to keep O2 saturation above 92%. CXR image and report reviewed. Devices in place. No pneumothorax. Left basilar opacities ABG reviewed, notable for acidemia d/t metabolic acidosis Sedated on Versed, Fentanyl On pressors for hemodynamic support. On Levophed 12 mcg/min Titrate to keep MAP above 65 mmHg/SBP above 90 mmHg. Tube feeds for nutritional support Continue antibiotics. F/u cultures. Sputum cultures show normal oropharyngeal daisha Monitor hemoglobin - 11.2 g/dL Monitor renal function Monitor electrolytes. Supplement as necessary. Supplement potassium Accu-Cheks, ISS - on insulin drip Labs and imaging reviewed. Rest of plan as noted below. Plan: s/p intubation on mechanical ventilator Central line placed for pressor administration and blood draws. Informed consent obtained. Bronchoscopy performed on 11/17 with clearance of mucous plugging. See separate procedure notes for above procedures. On assist control with a respiratory rate of 18, tidal volume 400, PEEP of 5, FiO2 30%. Titrate FIO2 to keep O2 saturation above 92%. VAP bundle Daily ABG and CXR while intubated. Sedate for ventilatory synchrony On pressors for hemodynamic support. Titrate to keep MAP above 65 mmHg/SBP above 90 mmHg. Continue antibiotics. F/u cultures. Monitor renal function Monitor electrolytes. Supplement as necessary. Monitor ins and outs On insulin drip Accucheks, ISS. GI/DVT prophylaxis. Condition: Critical Prognosis: Poor given multiple comorbidities. Rest of plan per hospitalist and other consultants. A total of 35 minutes of critical care time was spent reviewing the patient record, examining the patient, making a diagnostic and therapeutic plan, discussing this plan with the medical personnel, following up on diagnostic studies and following the patient for clinical stability excluding any and all procedures. At least 50% of this time was spent in direct, [id number] contact. Thank you RADHA Fernandez for allowing me to participate in this patient's care. Further recommendations will depend on patient's clinical course. Please do not hesitate to contact me if you have any questions or concerns. This medical document was created using an electronic medical record system with [employer] system. Although this document has been carefully reviewed, there may still be some phonetic and typographical errors. These areas are purely typographical due to imperfections of the software programs, and do not reflect any compromise in the patient's medical care. Dietary Evaluation Review Comments: 1. If pt remains Intubated consider TF Glucerna 1.2 @ 1152 Kcal 58g Protein 773ml Free Water 2. Consider advancing to PO diet when medically appropriate 3. If TF is not appropriate, consider TPN per pharmacy Expected Outcomes/Goals: 1. Pt will meet >75% of nutritional needs within 2-3 days Plan discussed with: Other (GOVIND Barragan) Critical Care Time(min): 35 LIDIA RAY MD Nov 19, 2024 23:22
[2024-11-20] VITALS (106 sets, daily range): BP systolic 81–113; BP diastolic 46–68; PULSE 46–82; RESP 13–26; TEMP 96.8–99.7; O2SAT 96–100
[2024-11-20 03:46] LABS: Basophils # (auto) 0 10 ^3/uL (0-0.2); Basophils % (auto) 0.4 % (0.0-2.0); Eosinophils # (auto) 0 10 ^3/uL (0-0.8); Eosinophils % (auto) 0.6 % (0.0-7.0); Hematocrit 30.1 % (41.0-53.0); Lymphocytes # (auto) 0.9 10 ^3/uL (0.4-5.4); Lymphocytes % (auto) 11.5 % (10.0-50.0); Mean Corpuscular Hemoglobin 31.8 pg (28.0-32.0); Mean Corpuscular Hgb Conc. 33.2 g/dL (32.0-36.0); Mean Corpuscular Volume 95.8 fL (80.0-100.0); Monocytes # (auto) 0.6 10 ^3/uL (0-1.3); Monocytes % (auto) 8.5 % (0.0-12.0); Platelet Count (auto) 156 10^3/uL (140-450); Red Blood Cells 3.14 10^6/uL (4.5-5.90); White Blood Cell 7.6 10^3/uL (4.4-10.8)
[2024-11-20 03:54] LABS: Alanine Aminotransferase 29 U/L (7-40); Alkaline Phosphatase 96 U/L (46-116); Anion Gap 6 (5-15); Aspartate Aminotransferase 35 U/L (13-40); BUN/Creatinine Ratio 21.6 (10.0-20.0); Blood Urea Nitrogen 16 mg/dL (9-23); Calcium 8.7 mg/dL (8.7-10.4); Carbon Dioxide 24 mmol/L (20-31); Glucose 98 mg/dL (74-106); Sodium 140 mmol/L (136-145)
[2024-11-20 03:55] LABS: Bilirubin, Total 0.5 mg/dL (0.2-1.0)
[2024-11-20 03:56] LABS: Albumin 3.1 g/dL (3.2-4.8); Chloride 110 mmol/L (98-107); Total Protein 5.2 g/dL (5.7-8.2)
--- NOTE | 2024-11-20 04:56 | DVH ---
CHEST RADIOGRAPH Indication: VENTILATED Technique: Single frontal view of the chest was obtained COMPARISON: XY CHEST XRAY 1 VIEW on DOS: 11/19/24, XY CHEST XRAY 1 VIEW on DOS: 11/17/24 FINDINGS: Lines and Tubes: Endotracheal tube enteric catheter and right central venous catheter in satisfactory position. Lungs: Diffuse congestion, unchanged. Pleura: No effusion. No pneumothorax. Cardiomediastinal contours: Unremarkable Bones: Unremarkable IMPRESSION: Lines and tubes in satisfactory position. No significant interval change.
[2024-11-20 06:55] LABS: Base Excess -4.4 mmol/L (-2.0-3.0)
--- NOTE | 2024-11-20 11:05 | DVHPN2 ---
Progress Note - Dictate Date Seen: Nov 20, 2024 Medical Necessity Reason Pt with a Central, PICC or Fol: Yes The following are medically ne: Central Line Subjective Mr. Amin is a 69 years old right-handed gentleman with a history of diabetes, alcohol abuse, he was brought to the hospital on 11/16/24 with a chief company of multiple falls in lasts a few weeks. The patient is just intubated because aspiration and desaturation. I have seen and examined the patient, I have discussed with his nurse and , he was intubated, responds to strong painful stimuli, he has weak gag reflexes No seizure activity Fentanyl 175 mdg/hour, Versed 9 mg/hour, UDS, 11/16/2024: Negative Urinalysis, 11/16/2024: WBC: 1, urine leukocyte esterase: Negative WBC/HB/PLT/MCV, 11/17/2024: 5.7/10.5/163/92.8 Anion gap, 11/16/2024: Eight, seven, seven CMP, 11/17/2024: Unremarkable Glucose, 11/16/2024: 640, 465, 55, 11/17/2024: 149 HGB A1c, 11/16/2024: >14 Beta hydroxide beauty uric acid, 11/16/2024: 1.14 TSH, 11/16/2024: 2.44 CT head, 11/16/24: No acute intracranial abnormality CT head, 11/17/2024: No acute intracranial abnormality CT head, 11/17/2024: No acute intracranial abnormality identified. No appreciable change compared to the prior CT scan from earlier the same day CT neck, 11/17/2024: No evidence of cervical mass lesion, foreign body, pathologically enlarged lymph nodes or fluid collection vital signs Vital Sign Date Time Temp Pulse Resp B/P (MAP) Pulse Ox O2 Delivery O2 Flow Rate FiO2 11/20/24 10:17 76 21 104/55 (71) 100 30 11/20/24 08:30 99.7 211.5 11/20/24 08:00 Mechanical Ventilator+ Total Intake and Output 11/19/24 11/19/24 11/20/24 15:00 23:00 07:00 Intake Total 994.50 ml 1158.0 ml 1468.75 ml Output Total 250 ml 275 ml Balance 994.50 ml 908.0 ml 1193.75 ml medications Current Medications Medications Dose Ordered Sig/Hilario Route Start Time Stop Time Status Last Admin Dose Admin Insulin Glargine 15 units DAILY SC 11/17/24 10:00 11/18/24 09:00 15 UNITS Ondansetron HCl 4 mg Q4HP PRN IV 11/16/24 13:15 Acetaminophen 650 mg Q6HP PRN PO 11/16/24 13:15 Diagnostic Test (Pha) 1 strip IQ4HR 11/17/24 00:00 11/20/24 08:20 1 STRIP Insulin Human Regular IQ4HR SC 11/17/24 00:00 11/20/24 00:02 3 UNITS Dextrose 50 ml UD PRN IV 11/16/24 21:15 11/18/24 20:38 50 ML Thiamine HCl 100 mg DAILY PO 11/18/24 10:00 11/20/24 10:22 100 MG Folic Acid 1 mg DAILY PO 11/17/24 10:00 11/20/24 10:22 1 MG Multivitamins 1 tab DAILY PO 11/17/24 10:00 11/20/24 10:22 1 TAB Lorazepam 1 mg Q2HPRN PRN IV 11/17/24 10:00 Midazolam HCl 50 ml @ 1 mls/hr Q24H IV 11/17/24 17:15 11/20/24 00:06 6 MLS/HR Clindamycin Phosphate 50 ml @ 50 mls/hr Q8HR IV 11/17/24 22:00 11/20/24 05:34 50 MLS/HR Fentanyl Citrate 250 ml @ 2.5 mls/hr Q24H IV 11/17/24 19:00 11/19/24 08:07 10 MLS/HR Norepinephrine Bitartrate 250 ml @ 3.75 mls/hr Q24H IV 11/17/24 23:45 11/19/24 22:49 22.5 MLS/HR Dextrose/Sodium Chloride 1,000 ml @ 60 mls/hr [id number] IV 11/18/24 04:30 11/20/24 05:44 60 MLS/HR Vancomycin HCl 0 ml @ 0 mls/hr UD IV 11/18/24 10:00 Vancomycin HCl 100 ml @ 100 mls/hr Q12HR IV 11/18/24 10:15 11/20/24 10:22 100 MLS/HR Phenylephrine HCl 250 ml @ 30 mls/hr Q8H20M IV 11/18/24 21:15 11/18/24 21:45 30 MLS/HR Enteral Nutritional Formula 1,000 ml 30ML/HR GT 11/19/24 12:45 objective The patient is well-nourished and well-developed with no distress. The patient is intubated MENTAL STATUS: Subjective, CRANIAL NERVES: Pupils are equal, round and nonreactive, small, there was doll's eye and corneal reflexes. No signs of facial weakness. There are gag reflexes SENSATION: Responds to stroke painful stimuli MOTOR: Normal tone in the upper and lower extremity. Normal muscle bulk. No fasciculations. No spontaneous extremity movement REFLEXES: Deep tendon reflexes are symmetrical. No pathological reflexes. CEREBELLAR/COORDINATION: Deferred GAIT/STATION: deferred. laboratory and microbiology Laboratory Tests 11/20/24 03:15 Test 11/20/24 03:15 Range/Units Serum Glucose 98 74-106 mg/dL Problem List Altered mental status Metabolic encephalopathy ? Metabolic encephalopathy Toxic encephalopathy Hypoxic encephalopathy Acute respiratory failure/aspiration Gait disturbance, multifactorial Alcoholism Wernicke encephalopathy Assessment/Plan Monitoring Supportive treatment EEG MRI brain scan ICU care Stabilize vitals Respiratory support/vent management Oxygen Thiamine supplementation Folic acid supplementation IV antibiotics Diabetes management Wean off sedation as tolerated More recommendation per clinical course This medical document was created using an electronic medical record system with [employer] dictation system. Although this document has been carefully reviewed, there may still be some phonetic and typographical errors. These areas are purely typographical due to imperfections of the software programs, and do not reflect any compromise in the patient's medical care. Prognosis guarded Dietary Evaluation Review Comments: 1. If pt remains Intubated consider TF Glucerna 1.2 @ 1152 Kcal 58g Protein 773ml Free Water 2. Consider advancing to PO diet when medically appropriate 3. If TF is not appropriate, consider TPN per pharmacy Expected Outcomes/Goals: 1. Pt will meet >75% of nutritional needs within 2-3 days Plan discussed with: Spouse, Other Critical Care Time(min): 30 ISAAC AHMADI MD Nov 20, 2024 11:05
--- NOTE | 2024-11-20 12:18 | DVH ---
INDICATION: R/O LIVER CIRRHOSIS TECHNIQUE: Multiple real-time sonographic images of the abdomen were obtained. COMPARISON: None FINDINGS: The liver is homogenous in echogenicity. The liver measures 16cm. No intrahepatic biliary ductal dilatation is noted. The gallbladder wall measures 0.5 cm and is unremarkable. No gallstones or sludge is seen. The com mon duct measures 0.7 cm and is unremarkable. Trace pericholecystic fluid The right kidney measures 9cm. No hydronephrosis. The pancreas is not well visualized due to obscuration from bowel gas. The visualized portions of the IVC and aorta are grossly unremarkable. IMPRESSION: Thickened gallbladder wall with trace pericholecystic fluid. Please correlate with Alk Phos, bilirubin, blood culture, fever, WBC for primary cholecystitis, versu s secondary wall thickening with lipase for pancreatitis, AST/ALT for hepatitis/cirrhosis, BUN/Cr for renal failure, and BNP/albumin for CHF/low protein state.
[2024-11-20 13:29] LABS: COVID19 ANTIGEN SOFIA FIA NEGATIVE (NEGATIVE); Rapid Influenza A Negative (Negative); Rapid Influenza B Negative (Negative)
--- NOTE | 2024-11-20 14:13 | DVHPNRES ---
Progress Note Date Seen: Nov 20, 2024 Resident Creating Document: LITO MARCIAL RESIDENT Medical Necessity Reason Pt with a Central, PICC or Fol: Yes The following are medically ne: Central Line Subjective Review of Systems 69-year-old male originally from [place] with right-handed gentleman ,recent travel, alcohol abuse, drug abuse (marijuana, cocaine), poor medical follow up, with a history of diabetes and left hip surgery, presented to the ED due to multiple falls and general weakness. He reported his last fall occurred five days ago at his sister house ([place]), with several falls in recent weeks. He uses a cane for ambulation and has facial bruising after the fall, but denies hitting his head. The patient is just intubated because aspiration and desaturation and can not protect airways. Patient was intubated and sedated and remains in ICU level of care since 11/17. Patient currently on mechanical ventilation ,on minimal settings, CPAP trial tomorrow am. Will continue broad spectrum antibiotics, vancomycin, cefepime and flagy. Drips: -versed -fentanyl -levophed. Lines: - RIJ -2 peripheral in both arms catheter: Fraire Objective vital signs Vital Sign Date Time Temp Pulse Resp B/P (MAP) Pulse Ox O2 Delivery O2 Flow Rate FiO2 11/20/24 13:45 72 22 100/57 (71) 100 30 11/20/24 11:15 98.6 209.5 11/20/24 10:00 Mechanical Ventilator+ Total Intake and Output 11/19/24 11/19/24 11/20/24 15:00 23:00 07:00 Intake Total 994.50 ml 1158.0 ml 1468.75 ml Output Total 250 ml 275 ml Balance 994.50 ml 908.0 ml 1193.75 ml medications Current Medications Medications Dose Ordered Sig/Hilario Route Start Time Stop Time Status Last Admin Dose Admin Insulin Glargine 15 units DAILY SC 11/17/24 10:00 11/18/24 09:00 15 UNITS Ondansetron HCl 4 mg Q4HP PRN IV 11/16/24 13:15 Acetaminophen 650 mg Q6HP PRN PO 11/16/24 13:15 Diagnostic Test (Pha) 1 strip IQ4HR 11/17/24 00:00 11/20/24 12:11 1 STRIP Insulin Human Regular IQ4HR SC 11/17/24 00:00 11/20/24 00:02 3 UNITS Dextrose 50 ml UD PRN IV 11/16/24 21:15 11/18/24 20:38 50 ML Thiamine HCl 100 mg DAILY PO 11/18/24 10:00 11/20/24 10:22 100 MG Folic Acid 1 mg DAILY PO 11/17/24 10:00 11/20/24 10:22 1 MG Multivitamins 1 tab DAILY PO 11/17/24 10:00 11/20/24 10:22 1 TAB Lorazepam 1 mg Q2HPRN PRN IV 11/17/24 10:00 Midazolam HCl 50 ml @ 1 mls/hr Q24H IV 11/17/24 17:15 11/20/24 00:06 6 MLS/HR Clindamycin Phosphate 50 ml @ 50 mls/hr Q8HR IV 11/17/24 22:00 11/20/24 05:34 50 MLS/HR Fentanyl Citrate 250 ml @ 2.5 mls/hr Q24H IV 11/17/24 19:00 11/19/24 08:07 10 MLS/HR Norepinephrine Bitartrate 250 ml @ 3.75 mls/hr Q24H IV 11/17/24 23:45 11/19/24 22:49 22.5 MLS/HR Dextrose/Sodium Chloride 1,000 ml @ 60 mls/hr [id number] IV 11/18/24 04:30 11/20/24 05:44 60 MLS/HR Vancomycin HCl 0 ml @ 0 mls/hr UD IV 11/18/24 10:00 Vancomycin HCl 100 ml @ 100 mls/hr Q12HR IV 11/18/24 10:15 11/20/24 10:22 100 MLS/HR Enteral Nutritional Formula 1,000 ml 30ML/HR GT 11/19/24 12:45 Pantoprazole Sodium 40 mg DAILY IV 11/21/24 10:00 UNV Enoxaparin Sodium 40 mg DAILY SC 11/21/24 10:00 UNV Examination General: Sedated, intubated on mechanical ventilator. Head: Normocephalic, atraumatic. Eyes: PERRLA.. Neck: Endotracheal tube and orogastric tube in place,RIJ CVC. Chest: Rales, bibasilar crackles. no wheezing Cardiovascular: Positive S1, positive S2. Regular rate and rhythm. Abdomen: Positive bowel sounds in all 4 quadrants. Soft, nontender, nondistended. Genitourinary: Fraire in place. Normal external genitalia. Skin: Warm, Intact. Extremities: 2+ radial pulses bilaterally. no lower extremity edema. laboratory and microbiology Laboratory Tests 11/20/24 03:15 Test 11/20/24 03:15 Range/Units Serum Glucose 98 74-106 mg/dL Microbiology Date/Time Source Procedure Growth Status 11/18/24 15:30 Nose MRSA Screen - Final Complete 11/17/24 18:54 Bronchial Washings Gram Stain - Final Resulted 11/17/24 18:54 Bronchial Washings Respiratory Culture - Preliminary Resulted Problem List/Assessment/Plan Problem List/Assessment/Plan Neurolgy: # Sedated with fentanyl Versed , currently under mechanical ventilation # Known history of alcohol abuse, marijuana abuse and polysubstance abuse. # altered level of consciousness due to Toxic versus metabolic encephalopathy , # Ketosis with Ketonurea could be due to poor oral intake. Differentials include poor food intake, Wernicke encephalopathy, pending MRI. - MRI brain scan, pending - continue the patient on folate, thiamine, multivitamins -repeated head CT x3, neurology on board appreciate input. Cardiology: C. Respiratory: # Acute hypoxic respiratory failure likely due to sepsis due to Gram-positive/Gram-negative/anaerobes due to community-acquired pneumonia / Aspirative # Tachypnea #Bibasilar Atelectasis # Subtle ground-glass attenuation of the right upper lobe could be infectious or inflammatory process. - Pancultures,pending - Broad espectrum antibiotics - under mecanical ventilation, Minimal settings, FiO2 30%, with SpO2 of 100%, peep of 5, S CBC, tidal volume of 400 - cpap trial tomorrow morning Gastrointenstinal: # Moderate malnutrition: Nutrition supplement as needed, continue OG tube/ enteral nutrition, # If pt remains Intubated - Glucerna 1.2 10 ml/ h - clinimix - look for refeeding syndrome with daily close monitoring of magnesium, phosphate, potassium. Geniotourinary: Infectious Disease: #Sepsis likely due to G+/G-/Anaerobes due to CAP/aspirative PNA - iv broad spectrum atb Hematology & Oncology: # Rule out pulmonary TB, other malignancy ? - patient came with normocytic anemia baseline 12.2 - quantiferon TB - HIV screening Nephrology: # euvolemic/ mildly hypervolemic:total positive volume, # Hypokalemia mild, 3.2, replenished # KEYSHAWN due to VMN - patient on Fraire's catheter since 11/17, total output in last 24 hour 525 - Monitor, daily BMP Endocrine: # Hyperglycemic Hyperosmolar Syndrome likely due to underlying uncontrolled type 2 diabetes. HbA1C>14 - In-hospital target blood glucose 140-180 Prophylaxis: PPI 40 mg IV daily DVT: Lovenox 40 mg IV daily Lines RIJ 2 Peripheral ( both arms) Arterial line Drips: - Fentanyl - Levophed - versed Vent Settings: FiO2 30%, with SpO2 of 100%, peep of 5, S CBC, tidal volume of 400 Case discussed with critical care, time spent excluding procedures: 82 minutes goals of care discussed with brother,sister and niece. code status: full code Plan discussed with: Other (brother and sister) My Orders My Orders Orders - LITO MARCIAL RESIDENT Procedure Category Date Status Time Hiv 1&2 Antibody LAB 11/20/24 In Process 11:04 Quantiferon-Tb Gold LAB 11/20/24 In Process 11:04 LIVER US 11/20/24 Resulted 11:04 Prothrombin Time W/ LAB 11/20/24 In Process INR 11:04 Vitamin B12 LAB 11/20/24 In Process 11:04 Pantoprazole PHA 11/20/24 Logged (Protonix) 12:15 Pantoprazole PHA 11/21/24 Logged (Protonix) 10:00 Enoxaparin Sodium PHA 11/20/24 Logged (Lovenox) 12:15 Enoxaparin Sodium PHA 11/21/24 Logged (Lovenox) 10:00 Blood Culture LARRY 11/20/24 Logged 13:26 Cefepime 2gm/50ml Ns PHA 11/20/24 Logged (Maxipime 2gm/50ml) 22:00 Cefepime 2gm/50ml Ns PHA 11/20/24 Logged (Maxipime 2gm/50ml) 14:15 Dietary Evaluation Review Comments: 1. If pt remains Intubated consider TF Glucerna 1.2 @ 1152 Kcal 58g Protein 773ml Free Water 2. Consider advancing to PO diet when medically appropriate 3. If TF is not appropriate, consider TPN per pharmacy Expected Outcomes/Goals: 1. Pt will meet >75% of nutritional needs within 2-3 days Date of Service: Nov 20, 2024 Billing Provider: YOKASTA ROWE MD Common Visit Codes: 49968-[id number] CARE 30-74 MIN, 56181-IZPRESIO CARE-EACH +30MIN LITO MARCIAL RESIDENT Nov 20, 2024 14:13 YOKASTA ROWE MD Nov 21, 2024 14:27
[2024-11-20 14:32] LABS: INR 0.95 (0.9-1.15); Prothrombin Time 10.1 sec (9.3-11.8)
[2024-11-20] MEDS: PANTOPRAZOLE 40 MG/10 ML VIAL INJ IV ONE (15:00)
[2024-11-20] MEDS: ENOXAPARIN SOD 40 MG/0.4 ML SYRINGE SC ONE (15:00)
[2024-11-20] MEDS ORDERED: DEXTROSE (50%) 50ML SYRG IV PRN (15:30)
[2024-11-20] MEDS: THIAMINE 100mg/ml INJ (200mg/2ml VIAL) IV ONE (15:30)
[2024-11-20] MEDS: CEFEPIME 2GM/50ML NS 50 ML IV ONE (16:59)
[2024-11-20] MEDS: IPRATROPIUM BROM 0.5 MG/2.5ML INH SOL NEB SCH (17:56)
[2024-11-20] MEDS: ALBUTEROL SULF 2.5 MG/0.5ML(0.5%) NEB SOLN NEB SCH (17:56)
[2024-11-20] MEDS: InsuLIN REG 1unit/0.01ml Soln (100units/ml) SC SCH (18:00)
[2024-11-20] MEDS: ACCU-CHEK COMFORT CURVE STRIP VI SCH (18:26)
[2024-11-20] MEDS: metroNIDAZOLE 500MG/100ML 100 ML IV ONE (20:19)
[2024-11-20] MEDS: CEFEPIME 2GM/50ML NS 50 ML IV SCH (22:14)
[2024-11-21] VITALS (90 sets, daily range): BP systolic 88–150; BP diastolic 51–82; PULSE 48–94; RESP 11–22; TEMP 95.9–100.2; O2SAT 96–100
[2024-11-21] MEDS: metroNIDAZOLE 500MG/100ML 100 ML IV SCH (02:12)
--- NOTE | 2024-11-21 03:53 | DVH ---
CHEST RADIOGRAPH Indication: intubated Technique: Single frontal view of the chest was obtained COMPARISON: XY CHEST PORTABLE on DOS: 11/20/24, XY CHEST XRAY 1 VIEW on DOS: 11/19/24, XY CHEST XRAY 1 VIEW on DOS: 11/17/24 FINDINGS: Lines and Tubes: Endotracheal, enteric and right internal jugular central venous catheter is again no nelia, unchanged. Lungs: Increased markings are noted at the right lung base. Pleura: No effusion. No pneumothorax. Cardiomediastinal contours: Unremarkable Bones: Unremarkable IMPRESSION: 1. Support lines and catheters again noted unchanged. 2. Medial right basilar airspace disease suspected
[2024-11-21 04:18] LABS: Basophils # (auto) 0 10 ^3/uL (0-0.2); Basophils % (auto) 0.4 % (0.0-2.0); Eosinophils # (auto) 0.1 10 ^3/uL (0-0.8); Eosinophils % (auto) 1.5 % (0.0-7.0); Hemoglobin 9.2 g/dL (13.5-17.5); Lymphocytes % (auto) 15.7 % (10.0-50.0); Mean Corpuscular Volume 94.1 fL (80.0-100.0); Monocytes # (auto) 0.5 10 ^3/uL (0-1.3); Monocytes % (auto) 8.3 % (0.0-12.0); Neutrophils # (auto) 4.7 10 ^3/uL (1.6-8.6); Neutrophils % (auto) 74.1 % (37.0-80.0); Nucleated Red Blood Cells % 0.1 %; Platelet Count (auto) 171 10^3/uL (140-450); Red Blood Cells 2.87 10^6/uL (4.5-5.90); Red Cell Distribution Width 13.9 % (11.8-14.3); White Blood Cell 6.3 10^3/uL (4.4-10.8)
[2024-11-21 04:20] LABS: Alanine Aminotransferase 27 U/L (7-40); Alkaline Phosphatase 94 U/L (46-116); Anion Gap 5 (5-15); Aspartate Aminotransferase 24 U/L (13-40); BUN/Creatinine Ratio 16.9 (10.0-20.0); Blood Urea Nitrogen 13 mg/dL (9-23); Carbon Dioxide 25 mmol/L (20-31); Potassium 3.7 mmol/L (3.5-5.1); Sodium 140 mmol/L (136-145)
[2024-11-21 04:21] LABS: Bilirubin, Total 0.4 mg/dL (0.2-1.0)
[2024-11-21 04:37] LABS: Calcium 8.6 mg/dL (8.7-10.4); Chloride 110 mmol/L (98-107); Glucose 129 mg/dL (74-106)
[2024-11-21 07:42] LABS: Base Excess -3.5 mmol/L (-2.0-3.0)
[2024-11-21 09:31] LABS: Base Excess -3.1 mmol/L (-2.0-3.0)
[2024-11-21] MEDS: THIAMINE 100mg/ml INJ (200mg/2ml VIAL) IV SCH (10:21)
[2024-11-21] MEDS: PANTOPRAZOLE 40 MG/10 ML VIAL INJ IV SCH (10:22)
[2024-11-21] MEDS: ENOXAPARIN SOD 40 MG/0.4 ML SYRINGE SC SCH (10:24)
--- NOTE | 2024-11-21 10:55 | DVHPN2 ---
Progress Note - Dictate Date Seen: Nov 21, 2024 Medical Necessity Reason Pt with a Central, PICC or Fol: Yes The following are medically ne: Central Line Subjective Mr. Amin is a 69 years old right-handed gentleman with a history of diabetes, alcohol abuse, he was brought to the hospital on 11/16/24 with a chief company of multiple falls in lasts a few weeks. The patient is just intubated because aspiration and desaturation. I have seen and examined the patient, I have discussed with his nurse and the family member, he was in crisis, but is off sedation, he is awake, follows verbal commands, he moves the arms and feet UDS, 11/16/2024: Negative Urinalysis, 11/16/2024: WBC: 1, urine leukocyte esterase: Negative WBC/HB/PLT/MCV, 11/17/2024: 5.7/10.5/163/92.8 Anion gap, 11/16/2024: Eight, seven, seven CMP, 11/17/2024: Unremarkable Glucose, 11/16/2024: 640, 465, 55, 11/17/2024: 149 HGB A1c, 11/16/2024: >14 Beta hydroxide beauty uric acid, 11/16/2024: 1.14 TSH, 11/16/2024: 2.44 CT head, 11/16/24: No acute intracranial abnormality CT head, 11/17/2024: No acute intracranial abnormality CT head, 11/17/2024: No acute intracranial abnormality identified. No appreciable change compared to the prior CT scan from earlier the same day CT neck, 11/17/2024: No evidence of cervical mass lesion, foreign body, pathologically enlarged lymph nodes or fluid collection vital signs Vital Sign Date Time Temp Pulse Resp B/P (MAP) Pulse Ox O2 Delivery O2 Flow Rate FiO2 11/21/24 09:04 74 14 127/72 (90) 100 30 11/21/24 08:00 Mechanical Ventilator+ 11/21/24 06:45 100.2 212.4 11/20/24 21:03 65.0 Total Intake and Output 11/20/24 11/20/24 11/21/24 15:00 23:00 07:00 Intake Total 611.5 ml 470.0 ml 650.75 ml Output Total 475 ml 200 ml Balance 611.5 ml -5.0 ml 450.75 ml medications Current Medications Medications Dose Ordered Sig/Hilario Route Start Time Stop Time Status Last Admin Dose Admin Insulin Glargine 15 units DAILY SC 11/17/24 10:00 11/18/24 09:00 15 UNITS Acetaminophen 650 mg Q6HP PRN PO 11/16/24 13:15 Folic Acid 1 mg DAILY PO 11/17/24 10:00 11/20/24 10:22 1 MG Multivitamins 1 tab DAILY PO 11/17/24 10:00 11/20/24 10:22 1 TAB Midazolam HCl 50 ml @ 1 mls/hr Q24H IV 11/17/24 17:15 11/20/24 22:08 3 MLS/HR Fentanyl Citrate 250 ml @ 2.5 mls/hr Q24H IV 11/17/24 19:00 11/20/24 23:45 12.5 MLS/HR Norepinephrine Bitartrate 250 ml @ 3.75 mls/hr Q24H IV 11/17/24 23:45 11/21/24 06:27 18.75 MLS/HR Dextrose/Sodium Chloride 1,000 ml @ 60 mls/hr [id number] IV 11/18/24 04:30 11/20/24 22:16 60 MLS/HR Vancomycin HCl 0 ml @ 0 mls/hr UD IV 11/18/24 10:00 Vancomycin HCl 100 ml @ 100 mls/hr Q12HR IV 11/18/24 10:15 11/20/24 22:13 100 MLS/HR Enteral Nutritional Formula 1,000 ml 30ML/HR GT 11/19/24 12:45 Pantoprazole Sodium 40 mg DAILY IV 11/21/24 10:00 Enoxaparin Sodium 40 mg DAILY SC 11/21/24 10:00 Cefepime HCl 50 ml @ 12.5 mls/hr Q8HR IV 11/20/24 22:00 11/21/24 05:33 12.5 MLS/HR Thiamine HCl 100 mg DAILY IV 11/21/24 10:00 Diagnostic Test (Pha) 1 strip Q6HR 11/20/24 18:00 11/21/24 05:48 1 STRIP Insulin Human Regular Q6HR SC 11/20/24 18:00 11/21/24 05:50 2 UNITS Dextrose 50 ml UD PRN IV 11/20/24 15:30 Albuterol 2.5 mg Q6HR NEB 11/20/24 18:00 11/21/24 06:37 2.5 MG Ipratropium Todd 0.5 mg Q6HR NEB 11/20/24 18:00 11/21/24 06:37 0.5 MG Dexmedetomidine HCl 400 mcg/ Dextrose 100 ml @ 2.645 mls/ hr Q24H IV 11/20/24 15:45 11/21/24 09:21 2.645 MLS/HR Metronidazole 100 ml @ 100 mls/hr Q8H IV 11/21/24 02:00 11/21/24 02:12 100 MLS/HR objective The patient is well-nourished and well-developed with no distress. The patient is intubated MENTAL STATUS: Subjective, CRANIAL NERVES: Pupils are equal, round and nonreactive, small, there was doll's eye and corneal reflexes. No signs of facial weakness. There are gag reflexes SENSATION: Responds to stroke painful stimuli MOTOR: Normal tone in the upper and lower extremity. Normal muscle bulk. No fasciculations. No spontaneous extremity movement REFLEXES: Deep tendon reflexes are symmetrical. No pathological reflexes. CEREBELLAR/COORDINATION: Deferred GAIT/STATION: deferred. laboratory and microbiology Laboratory Tests 11/21/24 03:00 Test 11/21/24 03:00 Range/Units Serum Glucose 129 H 74-106 mg/dL Problem List Altered mental status Metabolic encephalopathy ? Metabolic encephalopathy Toxic encephalopathy Hypoxic encephalopathy Acute respiratory failure/aspiration Gait disturbance, multifactorial Alcoholism Wernicke encephalopathy Assessment/Plan Monitoring Supportive treatment EEG MRI brain scan ICU care Stabilize vitals Respiratory support/vent management Oxygen Thiamine supplementation Folic acid supplementation IV antibiotics Diabetes management Wean off sedation as tolerated More recommendation per clinical course This medical document was created using an electronic medical record system with [employer] dictation system. Although this document has been carefully reviewed, there may still be some phonetic and typographical errors. These areas are purely typographical due to imperfections of the software programs, and do not reflect any compromise in the patient's medical care. Prognosis poor Dietary Evaluation Review Comments: 1. If pt remains Intubated consider TF Glucerna 1.2 @ 1152 Kcal 58g Protein 773ml Free Water 2. Consider advancing to PO diet when medically appropriate 3. If TF is not appropriate, consider TPN per pharmacy Expected Outcomes/Goals: 1. Pt will meet >75% of nutritional needs within 2-3 days Plan discussed with: Other Critical Care Time(min): 35 ISAAC AHMADI MD Nov 21, 2024 10:55
[2024-11-21] MEDS: D5W/SOD CHLO 0.9% 1,000 ML IV SCH (15:15)
[2024-11-21] MEDS ORDERED: CLINIMIX PER PHARMACY 0 ML IV SCH (15:15)
[2024-11-21] MEDS ORDERED: ceFAZolin 1GM/50ML 50 ML IV ONE (15:15)
--- NOTE | 2024-11-21 16:26 | DVHPNRES ---
Progress Note Date Seen: Nov 21, 2024 Resident Creating Document: LITO MARCIAL RESIDENT Medical Necessity Reason Pt with a Central, PICC or Fol: Yes The following are medically ne: Central Line Subjective Review of Systems 69-year-old male patient, with past medical history of type 2 diabetes, drug abuse, alcohol abuse, marijuana use, cocaine abuse, right hip surgery who was brought to the emergency department on November 16 with a chief complaint of agitation, urinary and fecal incontinence, disorientation and history of multiple falls in the last weeks, he was found to have blood glucose above 500, hemoglobin A1c above 14 for which he was started on insulin and electrolyte replacement, and fluids. On November 17 the patient started desaturating until 70 after eating rice and corn, he underwent intubation and was transferred to the ICU. Today, November 21 the patient past CPAP trial, for which he was extubated in the morning, patient is currently on IV dextrose, recent glucose levels went down until 50s and 70s, patient was started on Clinimix. Microbiology results showed bronchial washings growing Staphylococcus aureus MSSA, for which the patient was started on cefazolin 2 g q.8h IV Physical therapy evaluation was requested. Swallow evaluation was attempted, patient did not past test. Reevaluation in the afternoon: - was examined at 6:00 p.m., he was talking and alert x2 on time and person but not on place, he said we are at "[place]" and that he has a friend Kenyon that is floating in the air and talking to him. -after a conversation with Dr. Mckeon regarding this new onset hallucinations (before hospitalization, per sister, the patient did not have similar behavior ), patient was started on Librium 25 mg once and q.6 p.r.n. -MRI of the brain without contrast Urine output in the last 12 hours: 3L (usually uo was on the 300's on previous shifts) - bmp - serum osm Patient reports: No new complaints Review of Systems: HEENT:Normal, CVS:Normal, RESPIRATORY:Abnormal, GI:Normal, :Normal, MSK:Normal, NEURO:Normal Objective vital signs Vital Sign Date Time Temp Pulse Resp B/P (MAP) Pulse Ox O2 Delivery O2 Flow Rate FiO2 11/21/24 13:30 77 14 133/68 (89) 100 11/21/24 13:15 97.7 207.9 11/21/24 12:00 Cool Aerosol 5 28 28 Total Intake and Output 11/20/24 11/20/24 11/21/24 15:00 23:00 07:00 Intake Total 611.5 ml 470.0 ml 650.75 ml Output Total 475 ml 200 ml Balance 611.5 ml -5.0 ml 450.75 ml medications Current Medications Medications Dose Ordered Sig/Hilario Route Start Time Stop Time Status Last Admin Dose Admin Acetaminophen 650 mg Q6HP PRN PO 11/16/24 13:15 Folic Acid 1 mg DAILY PO 11/17/24 10:00 11/21/24 10:23 1 MG Multivitamins 1 tab DAILY PO 11/17/24 10:00 11/21/24 10:23 1 TAB Pantoprazole Sodium 40 mg DAILY IV 11/21/24 10:00 11/21/24 10:22 40 MG Enoxaparin Sodium 40 mg DAILY SC 11/21/24 10:00 11/21/24 10:24 40 MG Thiamine HCl 100 mg DAILY IV 11/21/24 10:00 11/21/24 10:21 100 MG Diagnostic Test (Pha) 1 strip Q6HR 11/20/24 18:00 11/21/24 12:02 1 STRIP Insulin Human Regular Q6HR SC 11/20/24 18:00 11/21/24 05:50 2 UNITS Dextrose 50 ml UD PRN IV 11/20/24 15:30 Albuterol 2.5 mg Q6HR NEB 11/20/24 18:00 11/21/24 11:57 2.5 MG Ipratropium [place] 0.5 mg Q6HR NEB 11/20/24 18:00 11/21/24 11:57 0.5 MG Amino Acids 0 ml @ 0 mls/hr PER PHARMACY IV 11/21/24 15:15 Dextrose/Sodium Chloride 1,000 ml @ 75 mls/hr [id number] IV 11/21/24 15:15 11/21/24 15:15 75 MLS/HR Cefazolin Sodium/ Dextrose 50 ml @ 50 mls/hr Q8HR IV 11/21/24 22:00 Examination Examination General Appearance: Alert, Oriented X3, Cooperative, No acute distress HEENT: EOMI Respiratory: Clear to auscultation, Normal air movement Cardiovascular: Regular rate, Normal S1, Normal S2 Abdominal: Normal bowel sounds Extremities: No cyanosis, No edema, Normal pulses, No tenderness/swelling, excoriation in bilat lower extremities. Skin: 7 x 4 cm blister noticed in the left side of thorax. Neuro: Strength at 3/5 X4 ext, Normal tone, Sensation intact, Reflexes 2+ Psych/Mental Status: Mental status NL, Mood NL laboratory and microbiology Laboratory Tests 11/21/24 03:00 Test 11/21/24 03:00 Range/Units Serum Glucose 129 H 74-106 mg/dL Microbiology Date/Time Source Procedure Growth Status 11/18/24 15:30 Nose MRSA Screen - Final Complete 11/17/24 18:54 Bronchial Washings Gram Stain - Final Resulted 11/17/24 18:54 Bronchial Washings Respiratory Culture - Preliminary Resulted Problem List/Assessment/Plan Problem List/Assessment/Plan Neurolgy: # Sedated with fentanyl Versed , currently under mechanical ventilation # Known history of alcohol abuse, marijuana abuse and polysubstance abuse. # altered level of consciousness due to Toxic versus metabolic encephalopathy , # Ketosis with Ketonurea could be due to poor oral intake. Differentials include poor food intake, Wernicke encephalopathy, pending MRI. - MRI brain scan, pending - continue the patient on folate, thiamine, multivitamins -repeated head CT x3, neurology on board appreciate input. Cardiology: C. Respiratory: # Acute hypoxic respiratory failure likely due to sepsis due to Gram-positive/Gram-negative/anaerobes due to community-acquired pneumonia / Aspirative # Tachypnea #Bibasilar Atelectasis # Subtle ground-glass attenuation of the right upper lobe could be infectious or inflammatory process. - Pancultures,pending - Broad espectrum antibiotics - extubated - mask, cool aerosol - CXR tomorrow am, abg Gastrointenstinal: # Moderate malnutrition: Nutrition supplement as needed, continue OG tube/ enteral nutrition, # If pt remains Intubated - clinimix - look for refeeding syndrome with daily close monitoring of magnesium, phosphate, potassium. Geniotourinary: - on james cath. Infectious Disease: #Sepsis likely due to G+/G-/Anaerobes due to CAP/aspirative PNA - iv cefazolin 2gr q8h Hematology & Oncology: # Rule out pulmonary TB, other malignancy ? - patient came with normocytic anemia baseline 12.2 - quantiferon TB, pending - HIV screening,negaive Nephrology: # euvolemic/ mildly hypervolemic:total positive volume, # Hypokalemia mild, 3.2, replenished # KEYSHAWN due to VMN - patient on James's catheter since 11/17 - Monitor, daily BMP Endocrine: # Hyperglycemic Hyperosmolar Syndrome likely due to underlying uncontrolled type 2 diabetes. HbA1C>14 - In-hospital target blood glucose 140-180 Prophylaxis: PPI 40 mg IV daily DVT: Lovenox 40 mg IV daily Lines RIJ 2 Peripheral ( both arms) Arterial line: Extubated. Case discussed with critical care, time spent excluding procedures including cpap trial: 81 minutes goals of care discussed with brother,sister and niece. code status: full code Plan discussed with: Patient, Other (sister) My Orders My Orders Orders - LITO MARCIAL RESIDENT Procedure Category Date Status Time Electrocardigram EKG 11/20/24 Logged 16:51 Electrocardigram EKG 11/20/24 Logged 17:51 Abg W/ Co-Ox RT 11/21/24 Logged 04:00 Abg W/ Co-Ox RT 11/21/24 Logged 09:19 Extubate JUAN 11/21/24 In Process 09:04 Oxygen Via Cool Mist RT 11/21/24 Transmitted Mask 10:30 Cefazolin 2 PHA 11/21/24 In Process [id number] (Ancef) 22:00 Pt Request For Service PT 11/21/24 Logged 15:29 Chest Portable XY 11/22/24 Logged 04:00 Complete Blood Count LAB 11/22/24 Verified 04:00 Comprehensive LAB 11/22/24 Verified Metabolic Panel 04:00 Cefazolin 2 PHA 11/21/24 In Process [id number] (Ancef) 15:45 Dietary Evaluation Review Comments: 1. If pt remains Intubated consider TF Glucerna 1.2 @ 1152 Kcal 58g Protein 773ml Free Water 2. Consider advancing to PO diet when medically appropriate 3. If TF is not appropriate, consider TPN per pharmacy Expected Outcomes/Goals: 1. Pt will meet >75% of nutritional needs within 2-3 days Date of Service: Nov 21, 2024 Billing Provider: YOKASTA ROWE MD Common Visit Codes: 35722-[id number] CARE 30-74 MIN, 84150-[id number] CARE-EACH +30MIN LITO MARCIAL Nov 21, 2024 16:26 YOKASTA ROWE MD Nov 22, 2024 15:28
[2024-11-21] MEDS: ceFAZolin 2 GM/D5W50ml 50 ML IV ONE (17:02)
[2024-11-21] MEDS ORDERED: chlordiazePOXIDE HCL 25 MG CAP PO ONE (19:30)
[2024-11-21 20:09] LABS: Magnesium 1.7 mg/dL (1.6-2.6)
[2024-11-21 20:11] LABS: Phosphorus 2.5 mg/dL (2.4-5.1)
[2024-11-21 20:34] LABS: Chloride 103 mmol/L (98-107); Sodium 139 mmol/L (136-145)
[2024-11-21 20:35] LABS: Anion Gap 8 (5-15); Carbon Dioxide 28 mmol/L (20-31)
[2024-11-21 20:40] LABS: BUN/Creatinine Ratio 11.1 (10.0-20.0)
[2024-11-21 20:42] LABS: Blood Urea Nitrogen 9 mg/dL (9-23); Glucose 112 mg/dL (74-106)
[2024-11-21] MEDS: ceFAZolin 2 GM/D5W50ml 50 ML IV SCH (22:07)
[2024-11-21] MEDS: AMINO ACID INFUSION IN D10W 1,000 ML IV SCH (22:08)
[2024-11-21] MEDS: POTASSIUM CHL 20MEQ/100ML 100 ML IV SCH (22:30)
[2024-11-22] VITALS (28 sets, daily range): BP systolic 93–149; BP diastolic 52–83; PULSE 79–103; RESP 12–28; TEMP 97.8–98.8; O2SAT 93–100
[2024-11-22] MEDS: chlordiazePOXIDE HCL 25 MG CAP PO PRN (01:15)
[2024-11-22 04:52] LABS: Basophils # (auto) 0 10 ^3/uL (0-0.2); Basophils % (auto) 0.4 % (0.0-2.0); Eosinophils # (auto) 0 10 ^3/uL (0-0.8); Eosinophils % (auto) 0.3 % (0.0-7.0); Hematocrit 31.4 % (41.0-53.0); Hemoglobin 10.6 g/dL (13.5-17.5); Lymphocytes # (auto) 0.7 10 ^3/uL (0.4-5.4); Lymphocytes % (auto) 9.2 % (10.0-50.0); Mean Corpuscular Hemoglobin 31.5 pg (28.0-32.0); Mean Corpuscular Hgb Conc. 33.8 g/dL (32.0-36.0); Mean Corpuscular Volume 93.2 fL (80.0-100.0); Monocytes # (auto) 0.9 10 ^3/uL (0-1.3); Monocytes % (auto) 11.7 % (0.0-12.0); Neutrophils # (auto) 5.9 10 ^3/uL (1.6-8.6); Neutrophils % (auto) 78.4 % (37.0-80.0); Nucleated Red Blood Cells % 0.1 %; Platelet Count (auto) 200 10^3/uL (140-450); Red Blood Cells 3.37 10^6/uL (4.5-5.90); Red Cell Distribution Width 13.4 % (11.8-14.3); White Blood Cell 7.5 10^3/uL (4.4-10.8)
[2024-11-22 05:07] LABS: Alanine Aminotransferase 29 U/L (7-40); Albumin 3.5 g/dL (3.2-4.8); Anion Gap 10 (5-15); Aspartate Aminotransferase 31 U/L (13-40); BUN/Creatinine Ratio 12.1 (10.0-20.0); Calcium 9.3 mg/dL (8.7-10.4); Carbon Dioxide 28 mmol/L (20-31); Chloride 100 mmol/L (98-107); Glucose 89 mg/dL (74-106); Sodium 138 mmol/L (136-145)
[2024-11-22 05:08] LABS: Bilirubin, Total 0.7 mg/dL (0.2-1.0); Total Protein 5.9 g/dL (5.7-8.2)
--- NOTE | 2024-11-22 05:09 | DVH ---
CHEST RADIOGRAPH Indication: PNA Technique: Single frontal view of the chest was obtained COMPARISON: XY CHEST PORTABLE on DOS: 11/21/24, XY CHEST PORTABLE on DOS: 11/20/24, XY CHEST XRAY 1 VIE W on DOS: 11/19/24, XY CHEST XRAY 1 VIEW on DOS: 11/17/24 FINDINGS: Lines and Tubes: Right central venous catheter in satisfactory position. Lungs: Mild pulmonary vascular congestion Pleura: No effusion. No pneumothorax. Cardiomediastinal contours: Unremarkable Bones: Unremarkable IMPRESSION: Mild pulmonary vascular congestion
[2024-11-22 05:37] LABS: Alkaline Phosphatase 117 U/L (46-116); Blood Urea Nitrogen 8 mg/dL (9-23); Magnesium 1.6 mg/dL (1.6-2.6); Phosphorus 1.7 mg/dL (2.4-5.1)
[2024-11-22] MEDS: POTASSIUM CHL 20MEQ/100ML 100 ML IV SCH (08:45)
[2024-11-22] MEDS: POTASSIUM PHOSPHATE 22 MEQ in SODIUM CHL 0.9% 100 ML IV ONE (08:57)
--- NOTE | 2024-11-22 11:25 | DVHPN2 ---
Progress Note - Dictate Date Seen: Nov 22, 2024 Medical Necessity Reason Pt with a Central, PICC or Fol: Yes The following are medically ne: Central Line Subjective Mr. Amin is a 69 years old right-handed gentleman with a history of diabetes, alcohol abuse, he was brought to the hospital on 11/16/24 with a chief company of multiple falls in lasts a few weeks. The patient is just intubated because aspiration and desaturation. I have seen and examined the patient, I have discussed with his nurse. He was awake, he was talked with good voice, oriented to person, place, he knows year and the month, but he was confused from time to time He was 5 L urine output yesterday, his sodium level is fine UDS, 11/16/2024: Negative Urinalysis, 11/16/2024: WBC: 1, urine leukocyte esterase: Negative WBC/HB/PLT/MCV, 11/17/2024: 5.7/10.5/163/92.8 Anion gap, 11/16/2024: Eight, seven, seven CMP, 11/17/2024: Unremarkable Glucose, 11/16/2024: 640, 465, 55, 11/17/2024: 149 HGB A1c, 11/16/2024: >14 Beta hydroxide beauty uric acid, 11/16/2024: 1.14 TSH, 11/16/2024: 2.44 CT head, 11/16/24: No acute intracranial abnormality CT head, 11/17/2024: No acute intracranial abnormality CT head, 11/17/2024: No acute intracranial abnormality identified. No appreciable change compared to the prior CT scan from earlier the same day CT neck, 11/17/2024: No evidence of cervical mass lesion, foreign body, pathologically enlarged lymph nodes or fluid collection vital signs Vital Sign Date Time Temp Pulse Resp B/P (MAP) Pulse Ox O2 Delivery O2 Flow Rate FiO2 11/22/24 10:00 16 100 Room Air* 0 28 21 11/22/24 10:00 91 132/66 (88) 11/22/24 08:00 97.8 97.8 Total Intake and Output 11/21/24 11/21/24 11/22/24 15:00 23:00 07:00 Intake Total 667.50 ml 691 ml 903 ml Output Total 3325 ml 4450 ml Balance 667.50 ml -2634 ml -3547 ml medications Current Medications Medications Dose Ordered Sig/Hilario Route Start Time Stop Time Status Last Admin Dose Admin Acetaminophen 650 mg Q6HP PRN PO 11/16/24 13:15 Folic Acid 1 mg DAILY PO 11/17/24 10:00 11/22/24 09:04 1 MG Multivitamins 1 tab DAILY PO 11/17/24 10:00 11/22/24 09:04 1 TAB Pantoprazole Sodium 40 mg DAILY IV 11/21/24 10:00 11/22/24 09:03 40 MG Enoxaparin Sodium 40 mg DAILY SC 11/21/24 10:00 11/22/24 09:04 40 MG Thiamine HCl 100 mg DAILY IV 11/21/24 10:00 11/22/24 09:03 100 MG Diagnostic Test (Pha) 1 strip Q6HR 11/20/24 18:00 11/22/24 05:36 1 STRIP Insulin Human Regular Q6HR SC 11/20/24 18:00 11/22/24 05:40 3 UNITS Dextrose 50 ml UD PRN IV 11/20/24 15:30 Albuterol 2.5 mg Q6HR NEB 11/20/24 18:00 11/22/24 06:27 2.5 MG Ipratropium [place] 0.5 mg Q6HR NEB 11/20/24 18:00 11/22/24 06:27 0.5 MG Amino Acids 0 ml @ 0 mls/hr PER PHARMACY IV 11/21/24 15:15 Dextrose/Sodium Chloride 1,000 ml @ 75 mls/hr [id number] IV 11/21/24 15:15 11/22/24 05:40 75 MLS/HR Cefazolin Sodium/ Dextrose 50 ml @ 50 mls/hr Q8HR IV 11/21/24 22:00 11/22/24 05:23 50 MLS/HR Amino Acids/ Electrolytes/ Dextrose 1,000 ml @ 41 mls/hr DAILY@2200 IV 11/21/24 22:00 11/21/24 22:08 41 MLS/HR Chlordiazepoxide HCl 25 mg Q6HPRN PRN PO 11/21/24 19:30 11/22/24 09:04 25 MG Magnesium Sulfate/ Dextrose 100 ml @ 100 mls/hr Q1HR IV 11/22/24 12:00 11/22/24 13:59 objective The patient is well-nourished and well-developed with no distress. MENTAL STATUS: Subjective, CRANIAL NERVES: Pupils are equal round and reactive to light briskly, normal external eye movement, normal sensation and motor examination in the lateral trigeminal nerve distribution, no facial weakness. SENSATION: Okay to pinprick and light touch MOTOR: Normal tone in the upper and lower extremity. Normal muscle bulk. No fasciculations. He moves the arms and legs REFLEXES: Deep tendon reflexes are symmetrical. No pathological reflexes. CEREBELLAR/COORDINATION: Deferred GAIT/STATION: deferred. laboratory and microbiology Laboratory Tests 11/22/24 03:40 Test 11/22/24 03:40 Range/Units Serum Glucose 89 74-106 mg/dL Problem List Altered mental status, improving Metabolic encephalopathy ? Metabolic encephalopathy Toxic encephalopathy Hypoxic encephalopathy Acute respiratory failure/aspiration Gait disturbance, multifactorial Alcoholism Wernicke encephalopathy, unlikely ? Diabetes insipidus Assessment/Plan Monitoring Supportive treatment EEG MRI brain scan ICU care Stabilize vitals Respiratory support/vent management Oxygen Thiamine supplementation Folic acid supplementation IV antibiotics Diabetes management Wean off sedation as tolerated More recommendation per clinical course This medical document was created using an electronic medical record system with [employer] computerized dictation system. Although this document has been carefully reviewed, there may still be some phonetic and typographical errors. These areas are purely typographical due to imperfections of the software programs, and do not reflect any compromise in the patient's medical care. Prognosis poor Dietary Evaluation Review Comments: 1. If pt remains Intubated consider TF Glucerna 1.2 @ 1152 Kcal 58g Protein 773ml Free Water 2. Consider advancing to PO diet when medically appropriate 3. If TF is not appropriate, consider TPN per pharmacy Expected Outcomes/Goals: 1. Pt will meet >75% of nutritional needs within 2-3 days Plan discussed with: ISAAC Owens MD Nov 22, 2024 11:25
[2024-11-22] MEDS: MAGNESIUM SULFATE 1GM/100ML 100 ML IV SCH (11:56)
[2024-11-22] MEDS: SODIUM PHOSPHATES 20 MEQ in SODIUM CHL 0.9% 100 ML IV ONE (12:31)
[2024-11-22] MEDS: ACETAMINOPHEN 325 MG TAB PO PRN (12:48)
[2024-11-22] MEDS: LIDOCAINE 5% TOPICAL PATCH TOP SCH (15:43)
--- NOTE | 2024-11-22 18:29 | DVHPNRES ---
Progress Note Date Seen: Nov 22, 2024 Resident Creating Document: LITO MARCIAL RESIDENT Medical Necessity Reason Pt with a Central, PICC or Fol: Yes The following are medically ne: Central Line, James Catheter Reason for james catheter: Strict I&O Subjective Review of Systems 69-year-old male patient, with past medical history of type 2 diabetes, drug abuse, alcohol abuse, marijuana use, cocaine abuse, right hip surgery who was brought to the emergency department on November 16 with a chief complaint of agitation, urinary and fecal incontinence, disorientation and history of multiple falls in the last weeks, he was found to have blood glucose above 500, hemoglobin A1c above 14 for which he was started on insulin and electrolyte replacement, and fluids. On November 17 the patient started desaturating until 70 after eating rice and corn, he underwent intubation and was transferred to the ICU. Patient was examined at [facility] , he reports still having hallucinations but not that frequent than yesterday, he reports moderate right hip pain in the left side (hx of hip fracture) Patient passed swallow test , still having increase urine output, bmp , serum/urine osm within normal limits. MRI was unable to obtain based on aloc. Patient was transfer to [facility] from ICU, the blister he had in the left side on the abdomen was evaluated by wound care after it breaks this morning. Patient reports: No new complaints Changes from previous H/P or p: Changes Review of Systems: HEENT:Normal, CVS:Normal, RESPIRATORY:Normal, GI:Normal, :Abnormal, MSK:Abnormal, NEURO:Abnormal Objective vital signs Vital Sign Date Time Temp Pulse Resp B/P (MAP) Pulse Ox O2 Delivery O2 Flow Rate FiO2 11/22/24 16:30 98.8 79 20 129/73 (91) 93 98.8 11/22/24 16:25 Room Air* 0 21 Total Intake and Output 11/21/24 11/21/24 11/22/24 15:00 23:00 07:00 Intake Total 667.50 ml 691 ml 953 ml Output Total 3325 ml 4450 ml Balance 667.50 ml -2634 ml -3497 ml medications Current Medications Medications Dose Ordered Sig/Hilario Route Start Time Stop Time Status Last Admin Dose Admin Acetaminophen 650 mg Q6HP PRN PO 11/16/24 13:15 11/22/24 12:48 650 MG Folic Acid 1 mg DAILY PO 11/17/24 10:00 11/22/24 09:04 1 MG Multivitamins 1 tab DAILY PO 11/17/24 10:00 11/22/24 09:04 1 TAB Pantoprazole Sodium 40 mg DAILY IV 11/21/24 10:00 11/22/24 09:03 40 MG Enoxaparin Sodium 40 mg DAILY SC 11/21/24 10:00 11/22/24 09:04 40 MG Thiamine HCl 100 mg DAILY IV 11/21/24 10:00 11/22/24 09:03 100 MG Diagnostic Test (Pha) 1 strip Q6HR 11/20/24 18:00 11/22/24 17:43 1 STRIP Insulin Human Regular Q6HR SC 11/20/24 18:00 11/22/24 17:44 4 UNITS Dextrose 50 ml UD PRN IV 11/20/24 15:30 Albuterol 2.5 mg Q6HR NEB 11/20/24 18:00 11/22/24 11:39 2.5 MG Ipratropium [place] 0.5 mg Q6HR NEB 11/20/24 18:00 11/22/24 11:39 0.5 MG Amino Acids 0 ml @ 0 mls/hr PER PHARMACY IV 11/21/24 15:15 Dextrose/Sodium Chloride 1,000 ml @ 75 mls/hr [id number] IV 11/21/24 15:15 11/22/24 05:40 75 MLS/HR Cefazolin Sodium/ Dextrose 50 ml @ 50 mls/hr Q8HR IV 11/21/24 22:00 11/22/24 14:06 50 MLS/HR Amino Acids/ Electrolytes/ Dextrose 1,000 ml @ 41 mls/hr DAILY@2200 IV 11/21/24 22:00 11/21/24 22:08 41 MLS/HR Chlordiazepoxide HCl 25 mg Q6HPRN PRN PO 11/21/24 19:30 11/22/24 09:04 25 MG Lidocaine 1 patch DAILY TOP 11/23/24 10:00 11/22/24 15:43 1 PATCH Lorazepam 1 mg Q6HP PRN IV 11/22/24 15:30 Examination General Appearance: Alert, Oriented X2, Cooperative, moderate acute distress Respiratory: Clear to auscultation, Normal air movement Cardiovascular: Regular rate, Normal S1, Normal S2 Extremities: No cyanosis, No edema, Normal pulses, No tenderness/swelling, excoriation in bilat lower extremities, blister rupture, left hip pain. Skin: 7 x 4 cm blister noticed in the left side of thorax. Neuro: Strength at 3/5 X4 ext, Normal tone, Sensation intact, Reflexes 2+ laboratory and microbiology Laboratory Tests 11/22/24 03:40 Test 11/22/24 03:40 Range/Units Serum Glucose 89 74-106 mg/dL Microbiology Date/Time Source Procedure Growth Status 11/20/24 16:40 Blood Blood Culture - Preliminary NO GROWTH AFTER 48 HOURS OF INCUBATION. Resulted 11/18/24 15:30 Nose MRSA Screen - Final Complete 11/17/24 18:54 Bronchial Washings Gram Stain - Final Complete 11/17/24 18:54 Respiratory Culture - Final Staphylococcus aureus Presumptive Sabrina albicans Complete Problem List/Assessment/Plan Problem List/Assessment/Plan Neurolgy: # history of alcohol abuse # marijuana abuse # altered level of consciousness due to Toxic / metabolic encephalopathy , # Wernicke encephalopathy ?, pending MRI. # Traumatic brain injury, ct head normal x3 #Visual and auditory hallucinations, new onset - tranfer to tele - MRI brain scan, pending - continue the patient on folate, thiamine, multivitamins -repeated head CT x3, neurology on board appreciate input. - extubated Cardiology: C. Respiratory: # Acute hypoxic respiratory failure likely due to sepsis due to staph aureus pneumonia # Tachypnea #Bibasilar Atelectasis # Subtle ground-glass attenuation of the right upper lobe could be infectious or inflammatory process. #fungal pneumonia - Pancultures,pending - Broad espectrum antibiotics - extubated - room air - fluconazole 200 po Gastrointenstinal: # Moderate malnutrition: Nutrition supplement as needed, continue OG tube/ enteral nutrition, # If pt remains Intubated - clinimix - look for refeeding syndrome with daily close monitoring of magnesium, phosphate, potassium. Geniotourinary: - on james cath. Infectious Disease: #Sepsis likely due to staph aureus pneumonia # fungal pna? - iv cefazolin 2gr q8h - fluconazol 200 mg po Hematology & Oncology: # Rule out pulmonary TB, other malignancy ? - patient came with normocytic anemia baseline 12.2 - quantiferon TB, pending - HIV screening,negaive Nephrology: # euvolemic/ mildly hypervolemic:total positive volume, # Hypokalemia mild, 3.2, replenished # KEYSHAWN due to VMN - patient on James's catheter since 11/17 - Monitor, daily BMP Endocrine: # Hyperglycemic Hyperosmolar Syndrome likely due to underlying uncontrolled type 2 diabetes. HbA1C>14 - In-hospital target blood glucose 140-180 Prophylaxis: PPI 40 mg IV daily DVT: Lovenox 40 mg IV daily Lines RIJ 2 Peripheral ( both arms) Arterial line: Extubated. Case discussed with critical care, time spent excluding procedures: 47 minutes goals of care discussed with brother,sister and niece. code status: full code Plan discussed with: Patient, Other (sister) My Orders My Orders Orders - LITO MARCIAL Procedure Category Date Status Time Chlordiazepoxide Hcl PHA 11/21/24 In Process Capsule (Librium Ca 19:30 Communication Order ORDERS 11/21/24 Transmitted 19:29 Transfer Orders XFER 11/22/24 Transmitted 11:51 Sitter At Bedside ORDERS 11/22/24 Transmitted 11:51 Apply/Change Dressing JUAN 11/22/24 In Process 14:46 Consistent DIET 11/22/24 Transmitted Carb(Ccho)Diabetes Dinner Dietary Evaluation Review Comments: 1. If pt remains Intubated consider TF Glucerna 1.2 @ 1152 Kcal 58g Protein 773ml Free Water 2. Consider advancing to PO diet when medically appropriate 3. If TF is not appropriate, consider TPN per pharmacy Expected Outcomes/Goals: 1. Pt will meet >75% of nutritional needs within 2-3 days Date of Service: Nov 22, 2024 Billing Provider: YOKASTA ROWE MD Common Visit Codes: 32790-[id number] CARE 30-74 MIN LITO MARCIAL Nov 22, 2024 18:29 YOKASTA ROWE MD Nov 23, 2024 12:20
[2024-11-23] VITALS (17 sets, daily range): BP systolic 88–114; BP diastolic 42–62; PULSE 65–90; RESP 12–20; TEMP 98.5–99.2; O2SAT 94–100
[2024-11-23] MEDS: InsuLIN REG 1unit/0.01ml Soln (100units/ml) SC SCH
[2024-11-23] MEDS: FLUCONAZOLE 200MG/100ML 100 ML IV ONE (01:39)
[2024-11-23 06:41] LABS: Alanine Aminotransferase 21 U/L (7-40); Alkaline Phosphatase 109 U/L (46-116); Anion Gap 9 (5-15); Aspartate Aminotransferase 19 U/L (13-40); BUN/Creatinine Ratio 14.9 (10.0-20.0); Blood Urea Nitrogen 10 mg/dL (9-23); Carbon Dioxide 30 mmol/L (20-31); Chloride 99 mmol/L (98-107); Magnesium 1.9 mg/dL (1.6-2.6); Sodium 138 mmol/L (136-145)
[2024-11-23 06:42] LABS: Bilirubin, Total 0.5 mg/dL (0.2-1.0)
[2024-11-23 06:43] LABS: Calcium 8.3 mg/dL (8.7-10.4); Glucose 224 mg/dL (74-106); Phosphorus 2.3 mg/dL (2.4-5.1); Potassium 2.9 mmol/L (3.5-5.1); Total Protein 4.9 g/dL (5.7-8.2)
[2024-11-23 07:02] LABS: Basophils # (auto) 0 10 ^3/uL (0-0.2); Basophils % (auto) 0.2 % (0.0-2.0); Eosinophils # (auto) 0.1 10 ^3/uL (0-0.8); Hematocrit 31.7 % (41.0-53.0); Hemoglobin 10.8 g/dL (13.5-17.5); Lymphocytes # (auto) 0.9 10 ^3/uL (0.4-5.4); Lymphocytes % (auto) 16.3 % (10.0-50.0); Mean Corpuscular Hemoglobin 31.2 pg (28.0-32.0); Mean Corpuscular Volume 91.9 fL (80.0-100.0); Monocytes # (auto) 0.7 10 ^3/uL (0-1.3); Monocytes % (auto) 11.4 % (0.0-12.0); Neutrophils # (auto) 4.1 10 ^3/uL (1.6-8.6); Neutrophils % (auto) 71.1 % (37.0-80.0); Platelet Count (auto) 224 10^3/uL (140-450); Red Blood Cells 3.45 10^6/uL (4.5-5.90); Red Cell Distribution Width 13.3 % (11.8-14.3); White Blood Cell 5.8 10^3/uL (4.4-10.8)
[2024-11-23] MEDS: POTASSIUM EFFERVESENT TAB 25 MEQ PO ONE (09:46)
[2024-11-23] MEDS: FLUCONAZOLE 200MG/100ML 100 ML IV SCH (09:47)
[2024-11-23 13:07] LABS: QuantiFERON-TB Gold Plus Negative (Negative)
--- NOTE | 2024-11-23 20:16 | DVHPNRES ---
Progress Note Date Seen: Nov 23, 2024 Resident Creating Document: LITO MARCIAL RESIDENT Medical Necessity Reason Pt with a Central, PICC or Fol: Yes The following are medically ne: Central Line Subjective Review of Systems 69-year-old male patient, with past medical history of type 2 diabetes, drug abuse, alcohol abuse, marijuana use, cocaine abuse, right hip surgery who was brought to the emergency department on November 16 with a chief complaint of agitation, urinary and fecal incontinence, disorientation and history of multiple falls in the last weeks, he was found to have blood glucose above 500, hemoglobin A1c above 14 for which he was started on insulin and electrolyte replacement, and fluids. On November 17 the patient started desaturating until 70 after eating rice and corn, he underwent intubation and was transferred to the ICU. Patient was examined at bedside , he reports still having hallucinations but not as severe as yesterday, he denied any other complaint. Patient passed swallow test , and he is tolerating food well. Patient tb Q came negative physical therapy evaluation was order,and dc planning started Patient reports: Feels better Changes from previous H/P or p: Changes Review of Systems: HEENT:Normal, CVS:Normal, RESPIRATORY:Normal, GI:Normal, :Normal, MSK:Normal, NEURO:Abnormal Objective vital signs Vital Sign Date Time Temp Pulse Resp B/P (MAP) Pulse Ox O2 Delivery O2 Flow Rate FiO2 11/23/24 19:12 70 16 107/62 98 0.0 11/23/24 18:03 Room Air* 11/23/24 16:48 99.2 99.2 Total Intake and Output 11/22/24 11/22/24 11/23/24 15:00 23:00 07:00 Intake Total 1588 ml 116 ml 345 ml Output Total 2250 ml 850 ml 975 ml Balance -662 ml -734 ml -630 ml medications Current Medications Medications Dose Ordered Sig/Hilario Route Start Time Stop Time Status Last Admin Dose Admin Acetaminophen 650 mg Q6HP PRN PO 11/16/24 13:15 11/22/24 18:57 650 MG Folic Acid 1 mg DAILY PO 11/17/24 10:00 11/23/24 09:48 1 MG Multivitamins 1 tab DAILY PO 11/17/24 10:00 11/23/24 09:48 1 TAB Pantoprazole Sodium 40 mg DAILY IV 11/21/24 10:00 11/23/24 09:47 40 MG Enoxaparin Sodium 40 mg DAILY SC 11/21/24 10:00 11/23/24 09:46 40 MG Thiamine HCl 100 mg DAILY IV 11/21/24 10:00 11/23/24 09:47 100 MG Diagnostic Test (Pha) 1 strip Q6HR 11/20/24 18:00 11/23/24 17:24 1 STRIP Dextrose 50 ml UD PRN IV 11/20/24 15:30 Albuterol 2.5 mg Q6HR NEB 11/20/24 18:00 11/23/24 18:03 2.5 MG Ipratropium [place] 0.5 mg Q6HR NEB 11/20/24 18:00 11/23/24 18:03 0.5 MG Cefazolin Sodium/ Dextrose 50 ml @ 50 mls/hr Q8HR IV 11/21/24 22:00 11/23/24 13:35 50 MLS/HR Chlordiazepoxide HCl 25 mg Q6HPRN PRN PO 11/21/24 19:30 11/22/24 09:04 25 MG Lidocaine 1 patch DAILY TOP 11/23/24 10:00 11/23/24 07:39 1 PATCH Lorazepam 1 mg Q6HP PRN IV 11/22/24 15:30 Insulin Human Regular Q6HR SC 11/23/24 00:00 11/23/24 17:48 2 UNITS Fluconazole 100 ml @ 100 mls/hr DAILY IV 11/23/24 10:00 11/23/24 09:47 100 MLS/HR Examination: GENERAL:Normal, HEENT:Normal, NECK:Normal, LUNGS:Normal, CVS:Normal, ABDOMEN:Normal, MSK:Normal, SKIN:Normal, NEURO:Normal, :Normal laboratory and microbiology Laboratory Tests 11/23/24 05:46 Test 11/23/24 05:46 Range/Units Serum Glucose 224 #H 74-106 mg/dL Microbiology Date/Time Source Procedure Growth Status 11/20/24 16:40 Blood Blood Culture - Preliminary NO GROWTH AFTER 72 HOURS OF INCUBATION. Resulted 11/18/24 15:30 Nose MRSA Screen - Final Complete 11/17/24 18:54 Bronchial Washings Gram Stain - Final Complete 11/17/24 18:54 Respiratory Culture - Final Staphylococcus aureus Presumptive Kathy albicans Complete Problem List/Assessment/Plan Problem List/Assessment/Plan Neurolgy: # history of alcohol abuse # marijuana abuse # altered level of consciousness due to Toxic / metabolic encephalopathy , # Wernicke encephalopathy ?, pending MRI. # Traumatic brain injury, ct head normal x3 #Visual and auditory hallucinations, new onset - tranfer to tele - continue the patient on folate, thiamine, multivitamins -repeated head CT x3, neurology on board appreciate input. - extubated Cardiology: C. Respiratory: # Acute hypoxic respiratory failure likely due to sepsis due to staph aureus pneumonia # Tachypnea #Bibasilar Atelectasis # Subtle ground-glass attenuation of the right upper lobe could be infectious or inflammatory process. #fungal pneumonia - extubated - room air - fluconazole 200 po Gastrointenstinal: # Moderate malnutrition: Nutrition supplement as needed, continue OG tube/ enteral nutrition, Geniotourinary: Infectious Disease: #Sepsis likely due to staph aureus pneumonia,resolved # fungal infection, due to kathy albicans - fluconazol 200 mg po Hematology & Oncology: # Rule out pulmonary TB, other malignancy - patient came with normocytic anemia baseline 12.2 - quantiferon TB, negative - HIV screening,negaive Nephrology: # euvolemic/ mildly hypervolemic:total positive volume, # Hypokalemia mild, 3.2, replenished # KEYSHAWN due to VMN - Monitor, daily BMP Endocrine: # Hyperglycemic Hyperosmolar Syndrome likely due to underlying uncontrolled type 2 diabetes. HbA1C>14 - In-hospital target blood glucose 140-180 -insulin protocol Prophylaxis: PPI 40 mg po daily DVT: Lovenox 40 mg IV daily Lines RIJ 2 Peripheral ( both arms) Extubated. Case discussed with goals of care discussed with brother,sister and niece. code status: full code- time spent 21 mins Plan discussed with: Patient My Orders My Orders Orders - LITO MARCIAL RESIDENT Procedure Category Date Status Time Insulin R (Human) PHA 11/23/24 In Process (Insulin R) 00:00 Fluconazole PHA 11/23/24 In Process 200mg/100ml (Diflucan 10:00 Pt Request For Service PT 11/23/24 Logged 12:04 Dietary Evaluation Review Comments: 1. If pt remains Intubated consider TF Glucerna 1.2 @ 1152 Kcal 58g Protein 773ml Free Water 2. Consider advancing to PO diet when medically appropriate 3. If TF is not appropriate, consider TPN per pharmacy Expected Outcomes/Goals: 1. Pt will meet >75% of nutritional needs within 2-3 days Date of Service: Nov 23, 2024 Billing Provider: YOKASTA ROWE MD Common Visit Codes: [id number] INP/OBS CARE(HIGH) Secondary Visit Codes: [id number] CARE PLAN 30 MINUTES LITO MARCIAL RESIDENT Nov 23, 2024 20:16 YOKASTA ROWE MD Nov 26, 2024 16:49
[2024-11-23] MEDS: LORazepam 2MG/ML-1ML VIAL IV PRN (21:35)
--- NOTE | 2024-11-23 22:54 | DVHPN2 ---
Progress Note - Dictate Date Seen: Nov 23, 2024 Medical Necessity Reason Pt with a Central, PICC or Fol: Yes The following are medically ne: Central Line Subjective Mr. Amin is a 69 years old right-handed gentleman with a history of diabetes, alcohol abuse, he was brought to the hospital on 11/16/24 with a chief company of multiple falls in lasts a few weeks. The patient is just intubated because aspiration and desaturation. I have seen and examined the patient, I have discussed with his nurse. He was awake, oriented to person, place, he knows year and the month, socially appropriate He agrees not to touch alcohol He still have other urine output, but sodium concentration is fine UDS, 11/16/2024: Negative Urinalysis, 11/16/2024: WBC: 1, urine leukocyte esterase: Negative WBC/HB/PLT/MCV, 11/17/2024: 5.7/10.5/163/92.8 Anion gap, 11/16/2024: Eight, seven, seven CMP, 11/17/2024: Unremarkable Glucose, 11/16/2024: 640, 465, 55, 11/17/2024: 149 HGB A1c, 11/16/2024: >14 Beta hydroxide beauty uric acid, 11/16/2024: 1.14 TSH, 11/16/2024: 2.44 CT head, 11/16/24: No acute intracranial abnormality CT head, 11/17/2024: No acute intracranial abnormality CT head, 11/17/2024: No acute intracranial abnormality identified. No appreciable change compared to the prior CT scan from earlier the same day CT neck, 11/17/2024: No evidence of cervical mass lesion, foreign body, pathologically enlarged lymph nodes or fluid collection vital signs Vital Sign Date Time Temp Pulse Resp B/P (MAP) Pulse Ox O2 Delivery O2 Flow Rate FiO2 11/23/24 21:00 98.9 81 19 114/56 (75) 95 98.9 11/23/24 20:00 Room Air* 0 21 Total Intake and Output 11/22/24 11/22/24 11/23/24 15:00 23:00 07:00 Intake Total 1588 ml 116 ml 345 ml Output Total 2250 ml 850 ml 975 ml Balance -662 ml -734 ml -630 ml medications Current Medications Medications Dose Ordered Sig/Hilario Route Start Time Stop Time Status Last Admin Dose Admin Acetaminophen 650 mg Q6HP PRN PO 11/16/24 13:15 11/22/24 18:57 650 MG Folic Acid 1 mg DAILY PO 11/17/24 10:00 11/23/24 09:48 1 MG Multivitamins 1 tab DAILY PO 11/17/24 10:00 11/23/24 09:48 1 TAB Enoxaparin Sodium 40 mg DAILY SC 11/21/24 10:00 11/23/24 09:46 40 MG Thiamine HCl 100 mg DAILY IV 11/21/24 10:00 11/23/24 09:47 100 MG Diagnostic Test (Pha) 1 strip Q6HR 11/20/24 18:00 11/23/24 17:24 1 STRIP Dextrose 50 ml UD PRN IV 11/20/24 15:30 Albuterol 2.5 mg Q6HR NEB 11/20/24 18:00 11/23/24 18:03 2.5 MG Ipratropium [place] 0.5 mg Q6HR NEB 11/20/24 18:00 11/23/24 18:03 0.5 MG Cefazolin Sodium/ Dextrose 50 ml @ 50 mls/hr Q8HR IV 11/21/24 22:00 11/23/24 21:47 50 MLS/HR Chlordiazepoxide HCl 25 mg Q6HPRN PRN PO 11/21/24 19:30 11/22/24 09:04 25 MG Lidocaine 1 patch DAILY TOP 11/23/24 10:00 11/23/24 07:39 1 PATCH Lorazepam 1 mg Q6HP PRN IV 11/22/24 15:30 11/23/24 21:35 1 MG Insulin Human Regular Q6HR SC 11/23/24 00:00 11/23/24 17:48 2 UNITS Fluconazole 200 mg DAILY PO 11/24/24 10:00 Pantoprazole Sodium 40 mg DAILY@0600 PO 11/24/24 06:00 objective The patient is well-nourished and well-developed with no distress. MENTAL STATUS: Subjective, CRANIAL NERVES: Pupils are equal round and reactive to light briskly, normal external eye movement, normal sensation and motor examination in the lateral trigeminal nerve distribution, no facial weakness. SENSATION: Okay to pinprick and light touch MOTOR: Normal tone in the upper and lower extremity. Normal muscle bulk. No fasciculations. He moves the arms and legs REFLEXES: Deep tendon reflexes are symmetrical. No pathological reflexes. CEREBELLAR/COORDINATION: Deferred GAIT/STATION: deferred. laboratory and microbiology Laboratory Tests 11/23/24 05:46 Test 11/23/24 05:46 Range/Units Serum Glucose 224 #H 74-106 mg/dL Problem List Altered mental status, improving Metabolic encephalopathy ? Metabolic encephalopathy Toxic encephalopathy Hypoxic encephalopathy Acute respiratory failure/aspiration Gait disturbance, multifactorial Alcoholism Wernicke encephalopathy, unlikely ? Diabetes insipidus Assessment/Plan Monitoring Supportive treatment MRI brain scan Telemetry Oxygen Thiamine supplementation Folic acid supplementation IV antibiotics Diabetes management Wean off sedation as tolerated More recommendation per clinical course This medical document was created using an electronic medical record system with [employer] dictation system. Although this document has been carefully reviewed, there may still be some phonetic and typographical errors. These areas are purely typographical due to imperfections of the software programs, and do not reflect any compromise in the patient's medical care. Prognosis poor Dietary Evaluation Review Comments: 1. If pt remains Intubated consider TF Glucerna 1.2 @ 1152 Kcal 58g Protein 773ml Free Water 2. Consider advancing to PO diet when medically appropriate 3. If TF is not appropriate, consider TPN per pharmacy Expected Outcomes/Goals: 1. Pt will meet >75% of nutritional needs within 2-3 days Plan discussed with: Other ISAAC AHMADI MD Nov 23, 2024 22:54
[2024-11-24] VITALS (16 sets, daily range): BP systolic 122–161; BP diastolic 56–79; PULSE 71–82; RESP 12–20; TEMP 97.5–98.5; O2SAT 93–100
[2024-11-24 06:01] LABS: Alanine Aminotransferase 23 U/L (7-40); Alkaline Phosphatase 106 U/L (46-116); Anion Gap 9 (5-15); BUN/Creatinine Ratio 17.8 (10.0-20.0); Blood Urea Nitrogen 13 mg/dL (9-23); Carbon Dioxide 30 mmol/L (20-31); Chloride 101 mmol/L (98-107); Potassium 4.4 mmol/L (3.5-5.1); Sodium 140 mmol/L (136-145)
[2024-11-24 06:02] LABS: Albumin 3.4 g/dL (3.2-4.8); Bilirubin, Total 0.4 mg/dL (0.2-1.0)
[2024-11-24] MEDS: PANTOPRAZOLE 40 MG TAB PO SCH (06:07)
[2024-11-24 06:13] LABS: Basophils # (auto) 0 10 ^3/uL (0-0.2); Basophils % (auto) 0.5 % (0.0-2.0); Eosinophils # (auto) 0.1 10 ^3/uL (0-0.8); Eosinophils % (auto) 1.4 % (0.0-7.0); Hematocrit 32.5 % (41.0-53.0); Hemoglobin 10.9 g/dL (13.5-17.5); Lymphocytes # (auto) 1.5 10 ^3/uL (0.4-5.4); Lymphocytes % (auto) 24.4 % (10.0-50.0); Mean Corpuscular Hemoglobin 31.3 pg (28.0-32.0); Mean Corpuscular Hgb Conc. 33.6 g/dL (32.0-36.0); Mean Corpuscular Volume 93.1 fL (80.0-100.0); Monocytes # (auto) 0.7 10 ^3/uL (0-1.3); Monocytes % (auto) 11.9 % (0.0-12.0); Neutrophils # (auto) 3.8 10 ^3/uL (1.6-8.6); Neutrophils % (auto) 61.8 % (37.0-80.0); Nucleated Red Blood Cells % 0.1 %; Platelet Count (auto) 251 10^3/uL (140-450); Red Blood Cells 3.49 10^6/uL (4.5-5.90); Red Cell Distribution Width 13.3 % (11.8-14.3); White Blood Cell 6.1 10^3/uL (4.4-10.8)
[2024-11-24 06:43] LABS: Aspartate Aminotransferase 41 U/L (13-40); Glucose 64 mg/dL (74-106); Total Protein 5.4 g/dL (5.7-8.2)
[2024-11-24] MEDS: FLUCONAZOLE 100 MG TAB PO SCH (10:02)
[2024-11-24] MEDS ORDERED: DEXTROSE (50%) 50ML SYRG IV PRN ×2 (15:15→21:00)
[2024-11-24] MEDS: ACCU-CHEK COMFORT CURVE STRIP VI SCH ×2 (17:30→22:06)
[2024-11-24] MEDS: InsuLIN REG 1unit/0.01ml Soln (100units/ml) SC SCH ×2 (17:31→22:06)
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
[2024-11-25] VITALS (17 sets, daily range): BP systolic 140–160; BP diastolic 68–85; PULSE 74–98; RESP 16–20; TEMP 98.1–98.6; O2SAT 97–100
--- NOTE | 2024-11-25 14:05 | DVHPN2 ---
Subjective The patient is seen and examined at bedside. Still very tired Reviewed: Care Plan, H&P, Labs, Medications, Previous Orders, Radiology Changes from previous H/P or p: No Changes Eyes: No Pain, No Vision change, No Conjunctivae inflammation, No Eyelid inflammation, No Other, No Redness ENT: No Ear pain, No Ear discharge, No Nose pain, No Nose discharge, No Nose congestion, No Mouth pain, No Mouth swelling, No Throat pain, No Throat swelling, No Other Cardiovascular: No Chest Pain, No Palpitations, No Orthopnea, No Paroxysmal Noc. Dyspnea, No Edema, No Lt Headedness, No Other Respiratory: No Cough, No Dry, No Shortness of breath, No SOB with excertion, No Wheezing, No Hemoptysis, No Pleuritic Pain, No Sputum, No Other Gastrointestinal: No Nausea, No Vomiting, No Abdominal Pain, No Diarrhea, No Constipation, No Melena, No Hematochezia, No Other Genitourinary: No Dysuria, No Frequency, No Incontinence, No Hematuria, No Retention, No Other Musculoskeletal: No other, No neck pain, No shoulder pain, No arm pain, No back pain, No hand pain, No leg pain, No foot pain Skin: Bruising Objective Vitals Vital Signs Date Time Temp Pulse Resp B/P (MAP) Pulse Ox O2 Delivery O2 Flow Rate FiO2 11/25/24 12:30 97 Room Air* 0 21 11/25/24 12:30 74 16 11/25/24 09:00 98.6 140/68 (92) 98.6 Intake/Output Intake and Output 11/25/24 07:00 Intake Total 650 ml Output Total 2600 ml Balance -1950 ml Intake Oral 600 ml IV Total 50 ml Output Urine Total 2600 ml # Voids 4 General Appearance: Alert, No acute distress, severe distress, Other (intubated and sedated) Lungs: Clear to auscultation Cardiovascular: Regular rate Musculoskeletal: Other (moving all extremities) Medications Current Medications Medications Dose Ordered Sig/Hilario Route Start Time Stop Time Status Last Admin Dose Admin Acetaminophen 650 mg Q6HP PRN PO 11/16/24 13:15 11/22/24 18:57 650 MG Folic Acid 1 mg DAILY PO 11/17/24 10:00 11/25/24 10:28 1 MG Multivitamins 1 tab DAILY PO 11/17/24 10:00 11/25/24 10:28 1 TAB Enoxaparin Sodium 40 mg DAILY SC 11/21/24 10:00 11/25/24 10:28 40 MG Thiamine HCl 100 mg DAILY IV 11/21/24 10:00 11/25/24 10:28 100 MG Albuterol 2.5 mg Q6HR NEB 11/20/24 18:00 11/25/24 12:30 2.5 MG Ipratropium Petros 0.5 mg Q6HR NEB 11/20/24 18:00 11/25/24 12:30 0.5 MG Cefazolin Sodium/ Dextrose 50 ml @ 50 mls/hr Q8HR IV 11/21/24 22:00 11/25/24 05:10 50 MLS/HR Chlordiazepoxide HCl 25 mg Q6HPRN PRN PO 11/21/24 19:30 11/22/24 09:04 25 MG Lidocaine 1 patch DAILY TOP 11/23/24 10:00 11/24/24 10:43 1 PATCH Lorazepam 1 mg Q6HP PRN IV 11/22/24 15:30 11/25/24 05:06 1 MG Fluconazole 200 mg DAILY PO 11/24/24 10:00 11/25/24 10:28 200 MG Pantoprazole Sodium 40 mg DAILY@0600 PO 11/24/24 06:00 11/25/24 05:10 40 MG Diagnostic Test (Pha) 1 strip ACHS 11/24/24 17:00 11/25/24 11:54 1 STRIP Insulin Human Regular AC SC 11/24/24 17:00 11/25/24 11:55 12 UNITS Dextrose 50 ml UD PRN IV 11/24/24 15:15 Diagnostic Test (Pha) 1 strip ACHS 11/24/24 22:00 11/25/24 11:54 1 STRIP Insulin Human Regular HS SC 11/24/24 22:00 11/24/24 22:06 10 UNITS Dextrose 50 ml UD PRN IV 11/24/24 21:00 Laboratory Results Laboratory Tests 11/24/24 05:14 Urinalysis Test 11/16/24 14:19 11/22/24 13:30 Urine Color Light-yellow (Yellow) Urine Clarity Clear (Clear) Urine pH 5.0 (5.0-9.0) Urine Specific [place] 1.033 (1.001-1.035) Urine Protein Negative (Negative) Urine Ketones 1+ (Negative) H Urine Blood Negative /uL (Negative) Urine Nitrite Negative (Negative) Urine Bilirubin Negative (Negative) Urine Urobilinogen Normal mg/dL (Negative) Urine Leukocyte Esterase Negative /uL (Negative) Urine RBC 1 /hpf (0 - 3) Urine Microscopic WBC 1 /HPF (0-3) Urine Squamous Epithelial Cells Few /hpf (<5) Urine Bacteria None seen /hpf (None Seen) Urine Glucose 4+ mg/dL (Normal) H Urine Osmolality 462 mOsm/kg Microbiology Microbiology Date/Time Source Procedure Growth Status 11/20/24 16:40 Blood Blood Culture - Preliminary NO GROWTH AFTER 72 HOURS OF INCUBATION. Resulted 11/18/24 15:30 Nose MRSA Screen - Final Complete 11/17/24 18:54 Bronchial Washings Gram Stain - Final Complete 11/17/24 18:54 Respiratory Culture - Final Staphylococcus aureus Presumptive Kathy albicans Complete Labs and/or images reviewed: Labs reviewed by me Assessment/Plan Assessment/Plan Neurolgy: # history of alcohol abuse # marijuana abuse # altered level of consciousness due to Toxic / metabolic encephalopathy , # Wernicke encephalopathy ?, pending MRI. # Traumatic brain injury, ct head normal x3 #Visual and auditory hallucinations, new onset - tranfer to tele - continue the patient on folate, thiamine, multivitamins -repeated head CT x3, neurology on board appreciate input. - extubated Cardiology: C. Respiratory: # Acute hypoxic respiratory failure likely due to sepsis due to staph aureus pneumonia # Tachypnea #Bibasilar Atelectasis # Subtle ground-glass attenuation of the right upper lobe could be infectious or inflammatory process. #fungal pneumonia - extubated - room air - fluconazole 200 po Gastrointenstinal: # Moderate malnutrition: Nutrition supplement as needed, continue OG tube/ enteral nutrition, Geniotourinary: Infectious Disease: #Sepsis likely due to staph aureus pneumonia,resolved # fungal infection, due to kathy albicans - fluconazol 200 mg po Hematology & Oncology: # Rule out pulmonary TB, other malignancy - patient came with normocytic anemia baseline 12.2 - quantiferon TB, negative - HIV screening,negaive Nephrology: # euvolemic/ mildly hypervolemic:total positive volume, # Hypokalemia mild, 3.2, replenished # KEYSHAWN due to VMN - Monitor, daily BMP Endocrine: # Hyperglycemic Hyperosmolar Syndrome likely due to underlying uncontrolled type 2 diabetes. HbA1C>14 - In-hospital target blood glucose 140-180 -insulin protocol Prophylaxis: PPI 40 mg po daily DVT: Lovenox 40 mg IV daily Lines RIJ 2 Peripheral ( both arms) Extubated. Continuing current management. We will get Physical therapy to be out of bed and ambulate if patient more alert awake This medical document was created using an electronic medical record system with [employer] direct computerized dictation system. Although this document has been carefully reviewed, there may still be some phonetic and typographical errors. These areas are purely typographical due to imperfections of the software programs, and do not reflect any compromise in the patient's medical care. Plan discussed with: Patient Date of Service: Nov 25, 2024 Billing Provider: MAGAN OLSON MD Common Visit Codes: [id number] INP/OBS CARE(HIGH) MAGAN OLSON MD Nov 25, 2024 14:05
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
[2024-11-26] VITALS (15 sets, daily range): BP systolic 112–145; BP diastolic 60–85; PULSE 78–104; RESP 16–20; TEMP 97.6–98.1; O2SAT 95–100
--- NOTE | 2024-11-26 22:26 | DVHPN2 ---
Subjective The patient is seen and examined at bedside. Remained weak. Reviewed: Care Plan, H&P, Labs, Medications, Previous Orders, Radiology Changes from previous H/P or p: No Changes Eyes: No Pain, No Vision change, No Conjunctivae inflammation, No Eyelid inflammation, No Other, No Redness ENT: No Ear pain, No Ear discharge, No Nose pain, No Nose discharge, No Nose congestion, No Mouth pain, No Mouth swelling, No Throat pain, No Throat swelling, No Other Cardiovascular: No Chest Pain, No Palpitations, No Orthopnea, No Paroxysmal Noc. Dyspnea, No Edema, No Lt Headedness, No Other Respiratory: No Cough, No Dry, No Shortness of breath, No SOB with excertion, No Wheezing, No Hemoptysis, No Pleuritic Pain, No Sputum, No Other Gastrointestinal: No Nausea, No Vomiting, No Abdominal Pain, No Diarrhea, No Constipation, No Melena, No Hematochezia, No Other Genitourinary: No Dysuria, No Frequency, No Incontinence, No Hematuria, No Retention, No Other Musculoskeletal: No other, No neck pain, No shoulder pain, No arm pain, No back pain, No hand pain, No leg pain, No foot pain Skin: Bruising Objective Vitals Vital Signs Date Time Temp Pulse Resp B/P (MAP) Pulse Ox O2 Delivery O2 Flow Rate FiO2 11/26/24 21:00 98.1 104 18 116/60 (78) 95 98.1 11/26/24 20:00 Room Air* 0 21 Intake/Output Intake and Output 11/26/24 07:00 Intake Total 1200 ml Output Total 1200 ml Balance 0 ml Intake Oral 1100 ml IV Total 100 ml Output Urine Total 1200 ml # Voids 3 General Appearance: Alert, No acute distress, severe distress, Other (intubated and sedated) Lungs: Clear to auscultation Cardiovascular: Regular rate Musculoskeletal: Other (moving all extremities) Medications Current Medications Medications Dose Ordered Sig/Hilario Route Start Time Stop Time Status Last Admin Dose Admin Acetaminophen 650 mg Q6HP PRN PO 11/16/24 13:15 11/22/24 18:57 650 MG Folic Acid 1 mg DAILY PO 11/17/24 10:00 11/26/24 09:58 1 MG Multivitamins 1 tab DAILY PO 11/17/24 10:00 11/26/24 09:58 1 TAB Enoxaparin Sodium 40 mg DAILY SC 11/21/24 10:00 11/26/24 09:59 40 MG Thiamine HCl 100 mg DAILY IV 11/21/24 10:00 11/26/24 09:58 100 MG Albuterol 2.5 mg Q6HR NEB 11/20/24 18:00 11/26/24 19:20 2.5 MG Ipratropium [place] 0.5 mg Q6HR NEB 11/20/24 18:00 11/26/24 19:20 0.5 MG Cefazolin Sodium/ Dextrose 50 ml @ 50 mls/hr Q8HR IV 11/21/24 22:00 11/26/24 21:28 50 MLS/HR Chlordiazepoxide HCl 25 mg Q6HPRN PRN PO 11/21/24 19:30 11/26/24 01:33 25 MG Lidocaine 1 patch DAILY TOP 11/23/24 10:00 11/24/24 10:43 1 PATCH Lorazepam 1 mg Q6HP PRN IV 11/22/24 15:30 11/26/24 21:29 1 MG Fluconazole 200 mg DAILY PO 11/24/24 10:00 11/26/24 09:58 200 MG Pantoprazole Sodium 40 mg DAILY@0600 PO 11/24/24 06:00 11/26/24 06:16 40 MG Diagnostic Test (Pha) 1 strip ACHS 11/24/24 17:00 11/26/24 21:29 1 STRIP Insulin Human Regular AC SC 11/24/24 17:00 11/26/24 17:00 15 UNITS Dextrose 50 ml UD PRN IV 11/24/24 15:15 Diagnostic Test (Pha) 1 strip ACHS 11/24/24 22:00 11/26/24 21:41 1 STRIP Insulin Human Regular HS SC 11/24/24 22:00 11/26/24 21:41 4 UNITS Dextrose 50 ml UD PRN IV 11/24/24 21:00 Laboratory Results Laboratory Tests 11/24/24 05:14 Urinalysis Test 11/16/24 14:19 11/22/24 13:30 Urine Color Light-yellow (Yellow) Urine Clarity Clear (Clear) Urine pH 5.0 (5.0-9.0) Urine Specific [place] 1.033 (1.001-1.035) Urine Protein Negative (Negative) Urine Ketones 1+ (Negative) H Urine Blood Negative /uL (Negative) Urine Nitrite Negative (Negative) Urine Bilirubin Negative (Negative) Urine Urobilinogen Normal mg/dL (Negative) Urine Leukocyte Esterase Negative /uL (Negative) Urine RBC 1 /hpf (0 - 3) Urine Microscopic WBC 1 /HPF (0-3) Urine Squamous Epithelial Cells Few /hpf (<5) Urine Bacteria None seen /hpf (None Seen) Urine Glucose 4+ mg/dL (Normal) H Urine Osmolality 462 mOsm/kg Microbiology Microbiology Date/Time Source Procedure Growth Status 11/20/24 16:40 Blood Blood Culture - Final NO GROWTH AFTER 5 DAYS OF INCUBATION. Complete 11/18/24 15:30 Nose MRSA Screen - Final Complete 11/17/24 18:54 Bronchial Washings Gram Stain - Final Complete 11/17/24 18:54 Respiratory Culture - Final Staphylococcus aureus Presumptive Kathy albicans Complete Labs and/or images reviewed: Labs reviewed by me Assessment/Plan Assessment/Plan Neurolgy: # history of alcohol abuse # marijuana abuse # altered level of consciousness due to Toxic / metabolic encephalopathy , # Wernicke encephalopathy ?, pending MRI. # Traumatic brain injury, ct head normal x3 #Visual and auditory hallucinations, new onset - tranfer to tele - continue the patient on folate, thiamine, multivitamins -repeated head CT x3, neurology on board appreciate input. - extubated Cardiology: C. Respiratory: # Acute hypoxic respiratory failure likely due to sepsis due to staph aureus pneumonia # Tachypnea #Bibasilar Atelectasis # Subtle ground-glass attenuation of the right upper lobe could be infectious or inflammatory process. #fungal pneumonia - extubated - room air - fluconazole 200 po Gastrointenstinal: # Moderate malnutrition: Nutrition supplement as needed, continue OG tube/ enteral nutrition, Geniotourinary: Infectious Disease: #Sepsis likely due to staph aureus pneumonia,resolved # fungal infection, due to kathy albicans - fluconazol 200 mg po Hematology & Oncology: # Rule out pulmonary TB, other malignancy - patient came with normocytic anemia baseline 12.2 - quantiferon TB, negative - HIV screening,negaive Nephrology: # euvolemic/ mildly hypervolemic:total positive volume, # Hypokalemia mild, 3.2, replenished # KEYSHAWN due to VM[employer] - Monitor, daily BMP Endocrine: # Hyperglycemic Hyperosmolar Syndrome likely due to underlying uncontrolled type 2 diabetes. HbA1C>14 - In-hospital target blood glucose 140-180 -insulin protocol Prophylaxis: PPI 40 mg po daily DVT: Lovenox 40 mg IV daily Lines RIJ 2 Peripheral ( both arms) Extubated. Continuing current management. We will get Physical therapy to be out of bed and ambulate if patient more alert awake Patient passed swallow eval we will change his diet to mechanical soft. This medical document was created using an electronic medical record system with [employer] direct computerized dictation system. Although this document has been carefully reviewed, there may still be some phonetic and typographical errors. These areas are purely typographical due to imperfections of the software programs, and do not reflect any compromise in the patient's medical care. Plan discussed with: Patient My Orders Orders - MAGAN OLSON MD Procedure Category Date Status Time Mechanical Soft Diet DIET 11/26/24 Transmitted Lunch Date of Service: Nov 26, 2024 Billing Provider: MAGAN OLSON MD Common Visit Codes: [id number] INP/OBS CARE(HIGH) MAGAN OLSON MD Nov 26, 2024 22:26
[2024-11-27] VITALS (8 sets, daily range): BP systolic 112–127; BP diastolic 66–71; PULSE 77–89; RESP 16–18; TEMP 98–98.2; O2SAT 95–100
[2024-11-27] MEDS: INSULIN LANTUS (GLARGINE) 1 /0.01ml (100units/ml) SC SCH (08:45)
[2024-11-27 10:42] LABS: Albumin 3.7 g/dL (3.2-4.8); Anion Gap 9 (5-15); BUN/Creatinine Ratio 12.6 (10.0-20.0); Blood Urea Nitrogen 12 mg/dL (9-23); Calcium 9.1 mg/dL (8.7-10.4); Carbon Dioxide 25 mmol/L (20-31); Chloride 102 mmol/L (98-107); Potassium 4.9 mmol/L (3.5-5.1); Total Protein 6.5 g/dL (5.7-8.2)
[2024-11-27 10:49] LABS: Alanine Aminotransferase 45 U/L (7-40); Alkaline Phosphatase 157 U/L (46-116); Aspartate Aminotransferase 76 U/L (13-40); Bilirubin, Total 0.3 mg/dL (0.2-1.0); Glucose 139 mg/dL (74-106); Sodium 136 mmol/L (136-145)
--- NOTE | 2024-11-27 16:24 | MEDREC ---
[facility] Intervention Section I [facility] Intervention: IV to PO conversion (PLEASE CONSIDER IV TO PO CONVERSION (PT IS TOLERATING FOOD AND ORAL MEDICATIONS ). ) ISELA CHEN PHARMACIST Nov 27, 2024 16:24
[2024-11-27] MEDS ORDERED: [UNRECOGNIZED DRUG - CODE] XX (17:58)
[2024-11-27] MEDS ORDERED: INSREGI SC (17:58)
[2024-11-27] MEDS ORDERED: GLUC-224 VI (17:58)
[2024-11-27] MEDS ORDERED: INSLANTI SC (17:58)
[2024-11-27] MEDS ORDERED: ALCO1PAD13 XX (18:03)
[2024-11-27] MEDS ORDERED: INSU-1639 XX (18:03)
[2024-11-27] MEDS ORDERED: [UNRECOGNIZED DRUG - CODE] XX (18:03)
--- NOTE | 2024-11-27 18:04 | DVHDSRES ---
Discharge Summary Date of Admission Resident Creating Document: LITO MARCIAL RESIDENT Nov 16, 2024 at 13:12 Date of Discharge: Nov 27, 2024 Admitting Diagnosis Acute metabolic encephalopathy due to Hyperglycemic hyperosmolar state Labs/Diagnostic Data: Laboratory Results Test 11/27/24 12:50 11/27/24 09:56 11/24/24 05:14 11/23/24 05:46 POC Glucose 168 mg/dl (70-106) Sodium Level 136 mmol/L (136-145) Potassium Level 4.9 mmol/L (3.5-5.1) Chloride Level 102 mmol/L (98-107) Carbon Dioxide Level 25 mmol/L (20-31) Anion Gap 9 (5-15) Blood Urea Nitrogen 12 mg/dL (9-23) Creatinine 0.95 mg/dL (0.700-1.30) Glomerular Filtration Rate Calc 88 mL/min (>90) BUN/Creatinine Ratio 12.6 (10.0-20.0) Serum Glucose 139 mg/dL (74-106) Calcium Level 9.1 mg/dL (8.7-10.4) Total Bilirubin 0.3 mg/dL (0.2-1.0) Aspartate Amino Transferase (AST) 76 U/L (13-40) Alanine Aminotransferase (ALT) 45 U/L (7-40) Alkaline Phosphatase 157 U/L (46-116) Total Protein 6.5 g/dL (5.7-8.2) Albumin 3.7 g/dL (3.2-4.8) White Blood Count 6.1 10^3/uL (4.4-10.8) Red Blood Count 3.49 10^6/uL (4.5-5.90) Hemoglobin 10.9 g/dL (13.5-17.5) Hematocrit 32.5 % (41.0-53.0) Mean Corpuscular Volume 93.1 fL (80.0-100.0) Mean Corpuscular Hemoglobin 31.3 pg (28.0-32.0) Mean Corpuscular Hemoglobin Concent 33.6 g/dL (32.0-36.0) Red Cell Distribution Width 13.3 % (11.8-14.3) Platelet Count 251 10^3/uL (140-450) Mean Platelet Volume 7.9 fL (6.9-10.8) Neutrophils (%) (Auto) 61.8 % (37.0-80.0) Lymphocytes (%) (Auto) 24.4 % (10.0-50.0) Monocytes (%) (Auto) 11.9 % (0.0-12.0) Eosinophils (%) (Auto) 1.4 % (0.0-7.0) Basophils (%) (Auto) 0.5 % (0.0-2.0) Neutrophils # (Auto) 3.8 10 ^3/uL (1.6-8.6) Lymphocytes # (Auto) 1.5 10 ^3/uL (0.4-5.4) Monocytes # (Auto) 0.7 10 ^3/uL (0-1.3) Eosinophils # (Auto) 0.1 10 ^3/uL (0-0.8) Basophils # (Auto) 0 10 ^3/uL (0-0.2) Nucleated Red Blood Cells 0.1 % Magnesium Level 2.0 mg/dL (1.6-2.6) Phosphorus Level 2.3 mg/dL (2.4-5.1) Test 11/22/24 13:30 11/22/24 03:40 11/21/24 19:21 11/21/24 09:26 Urine Osmolality 462 mOsm/kg Serum Osmolality 280 mOsm/kg (278-298) Ammonia 17 umol/L (11-32) Blood Gas Specimen Type Arterial Blood Gas Sample Site Right radial Blood Gas Patient Temperature 37.0 Arterial Blood Date Drawn [id number] Arterial Blood pH 7.408 (7.350-7.450) Arterial Blood Partial Pressure CO2 33.9 mmHg (35.0-48.0) Arterial Blood Partial Pressure O2 96.7 mmHg (83.0-108.0) Arterial Blood HCO3 20.9 mmol/L (21.0-28.0) Arterial Blood Oxygen Saturation 97.7 % (94.0-98.0) Arterial Blood Base Excess -3.1 mmol/L (-2.0-3.0) Arterial Blood Oxyhemoglobin 97.2 % (94.0-98.0) Arterial Blood Carboxyhemoglobin 0.3 % (0.5-1.5) Arterial Blood Methemoglobin 0.2 % (0.0-1.5) John Test Modified Blood Gas Total Hemoglobin 11.00 g/dL (13.5-17.5) Blood Gas Modality Vent - cpap FiO2 % 30.0 Blood Gas PEEP or CPAP 5.0 Test 11/21/24 06:55 11/20/24 13:52 11/20/24 12:10 11/19/24 20:54 Blood Gas Set Respiration Rate 18.0 Blood Gas Tidal Volume 400.0 Prothrombin Time 10.1 sec (9.3-11.8) Prothrombin Time INR 0.95 (0.9-1.15) Vitamin B12 Level 1447 pg/mL (211-911) HIV (1&2) Antibody Negative (Negative) TB Test (QFT) Gold Plus Negative (Negative) TB Test (QFT) Nil 0.00 IU/mL (.) TB Test (QFT) Mitogen 1.38 IU/mL (.) TB Test (QFT) Antigen 1 0.00 IU/mL (.) TB Test (QFT) Antigen 2 0.00 IU/mL (.) TB Test (QFT) Criteria Comment (.) Influenza Type A Antigen Negative (Negative) Influenza Type B Antigen Negative (Negative) SARS-CoV-2 Antigen (Rapid) Negative (NEGATIVE) Vancomycin Level Trough 12.3 ug/mL (5-10) Test 11/18/24 03:45 11/17/24 17:03 11/16/24 14:19 11/16/24 14:17 Lactic Acid Level 1.4 mmol/L (0.4-2.0) Blood Gas Liter Flow 10.00 Urine Color Light-yellow (Yellow) Urine Clarity Clear (Clear) Urine pH 5.0 (5.0-9.0) Urine Specific [place] 1.033 (1.001-1.035) Urine Protein Negative (Negative) Urine Ketones 1+ (Negative) Urine Blood Negative /uL (Negative) Urine Nitrite Negative (Negative) Urine Bilirubin Negative (Negative) Urine Urobilinogen Normal mg/dL (Negative) Urine Leukocyte Esterase Negative /uL (Negative) Urine RBC 1 /hpf (0 - 3) Urine Microscopic WBC 1 /HPF (0-3) Urine Squamous Epithelial Cells Few /hpf (<5) Urine Bacteria None seen /hpf (None Seen) Urine Glucose 4+ mg/dL (Normal) Beta-Hydroxybutyric Acid 1.140 mmol/L (< 0.4) Thyroid Stimulating Hormone (TSH) 2.44 uIU/mL (0.55-4.78) Test 11/16/24 14:16 11/16/24 10:43 Urine Opiates Screen Neg (NEGATIVE) Urine Fentanyl Screen Neg (NEGATIVE) Urine Barbiturates Screen Neg (NEGATIVE) Urine Phencyclidine Screen Neg (NEGATIVE) Urine Amphetamines Screen Neg (NEGATIVE) Urine Benzodiazepines Screen Neg (NEGATIVE) Urine Cocaine Screen Neg (NEGATIVE) Urine Cannabinoids Screen Neg (NEGATIVE) Hemoglobin A1c > 14.0 % A1C (<5.7) Other Laboratory Tests 11/27/24 09:56 11/24/24 05:14 Brief Hx & Hospital Course: History of present illness : The patient is a 69-year-old male with a past medical history of type 2 diabetes mellitus, drug and alcohol abuse, marijuana and cocaine use, and recent right hip surgery. He presented to the emergency department on November 16, 2024, with complaints of agitation, urinary and fecal incontinence, disorientation, and multiple falls over the past few weeks. Initial labs showed blood glucose >500 mg/dL and hemoglobin A1C >14, prompting initiation of insulin therapy, electrolyte replacement, and intravenous fluids. Hospital course: The patient was initially treated with IV fluids and insulin for hyperglycemia, requiring IV dextrose later due to glucose fluctuations. On November 17, he developed acute respiratory distress with desaturation to 70% after consuming rice and corn, necessitating intubation, and ICU transfer. He was successfully extubated the following morning and later transitioned to cool aerosol therapy. Bronchial washings grew Staphylococcus aureus (MSSA), and he was treated with cefazolin 2 g IV q8h. Neurologically, the patient exhibited hallucinations, reporting that he was at [facility] and mentioning a nonexistent friend. He was started on Librium 25 mg q6h PRN, and an MRI of the brain (without contrast) was performed. His mental status improved over the course of hospitalization. He passed a swallow test and tolerated food well. Urine output increased to 3L over 12 hours, significantly higher than previous shifts. Serum osmolality was monitored. A physical therapy evaluation was conducted, and discharge planning was initiated. At the time of discharge, the patient reported feeling better. His hallucinations had improved, and his neurological exam, while still abnormal, remained stable. Vital signs were within normal limits, and he was deemed safe for discharge. He was advised to continue diabetes management, electrolyte monitoring, and cefazolin IV therapy. Follow-up appointments were scheduled with endocrinology, neurology, and his primary care physician. He was instructed to maintain a diabetic diet, monitor blood glucose regularly, and continue physical therapy to improve mobility and prevent falls. Fall risk education was provided, and his family was advised to monitor for any mental status changes or recurrence of hallucinations. Disposition: patient stable for discharge to home. case discussed with Dr. Rowe. discharge planning discussed with the patient and family for 64 minutes. Condition at Discharge: Fair Final Diagnosis/Problems List # Hyperglycemic Hyperosmolar Syndrome likely due to underlying uncontrolled type 2 diabetes. HbA1C>14 # history of alcohol abuse # marijuana abuse, cocaine abuse # altered level of consciousness due to Toxic / metabolic encephalopathy , # Wernicke encephalopathy ? korsakoff? # Traumatic brain injury, ct head normal x3 # Visual and auditory hallucinations, new onset # Acute hypoxic respiratory failure likely due to sepsis due to staph aureus pneumonia # Tachypnea # Bibasilar Atelectasis # Subtle ground-glass attenuation of the right upper lobe could be infectious or inflammatory process. #fungal pneumonia #aspiration pneumonia # Moderate malnutrition: Nutrition supplement as needed, continue OG tube/ enteral nutrition, # Sepsis likely due to staph aureus pneumonia,resolved # septic shock due to aspiration pneumonia # fungal infection, due to kathy albicans: # Rule out pulmonary TB, other malignancy # euvolemic/ mildly hypervolemic:total positive volume, # Hypokalemia mild, 3.2, replenished # KEYSHAWN due to [employer] Discharge Disposition: Home SNF Discharge Will this Physician continue t: No Discharge Instruct/Medications Diet: Consistent carbohydrate Activity: No Restrictions, As Tolerated Follow Up/Referral: follow up with pcp within 7 days Medications: script to pharmacy Discharge Statement: "Patient was advised to return to the ER or call 911 if any headaches, dizziness, shortness of breath, chest pain, abdominal pain, bleeding, fevers, or worsening of medical condition. Patient was counseled about treatment plan, medications, possible side effects, patientverbalized understanding. All questions were answered to the best of my ability. This discharge took greater then 30 minutes in planning, reviewing documentation, counseling the patient, and discussing with other team members." ASSESSMENT ASSESSMENT Assessment hyperglycemic hyperosmolar state acute metabolic/hypoxic encephalopathy Date of Service: Nov 27, 2024 Billing Provider: YOKASTA ROWE MD Common Visit Codes: [id number] DISCH DAY >30min LITO MARCIAL RESIDENT Nov 27, 2024 18:04 YOKASTA ROWE MD Dec 02, 2024 19:21
[2024-11-28] MEDS ORDERED: INSRTEST SC (11:43)
== END 2024-11-27 18:15 | disposition home or self-care (01) | DRG 871 ==
LOC: ER 10:09 → OVERFLOW 13:12 → ICU WEST 11-19 07:18 → TELE-EAST 11-22 16:22
PROVIDERS: ADMIT Internal Medicine; ATTEND Internal Medicine
PROC: 5A1945Z Respiratory Ventilation, 24-96 Consecutive Hours (ICD-10-PCS; principal; 2024-11-17)
PROC: 0BH17EZ Insertion of Endotracheal Airway into Trachea, Via Natural or Artificial Opening (ICD-10-PCS; 2024-11-17)
PROC: 0B9D8ZX Drainage of Right Middle Lung Lobe, Via Natural or Artificial Opening Endoscopic, Diagnostic (ICD-10-PCS; 2024-11-17)
PROC: 02HV33Z Insertion of Infusion Device into Superior Vena Cava, Percutaneous Approach (ICD-10-PCS; 2024-11-17)
PROC: B548ZZA Ultrasonography of Superior Vena Cava, Guidance (ICD-10-PCS; 2024-11-17)
DX: A41.01 Sepsis due to Methicillin susceptible Staphylococcus aureus (principal); E11.10 Type 2 diabetes mellitus with ketoacidosis without coma; J69.0 Pneumonitis due to inhalation of food and vomit; J96.01 Acute respiratory failure with hypoxia; R65.21 Severe sepsis with septic shock; G92.8 Other toxic encephalopathy; N17.0 Acute kidney failure with tubular necrosis; J15.211 Pneumonia due to Methicillin susceptible Staphylococcus aureus; J16.8 Pneumonia due to other specified infectious organisms; E87.1 Hypo-osmolality and hyponatremia; R64 Cachexia; Z68.1 Body mass index [BMI] 19.9 or less, adult; G93.1 Anoxic brain damage, not elsewhere classified; E51.2 Wernicke's encephalopathy; E87.3 Alkalosis; T79.7XXA Traumatic subcutaneous emphysema, initial encounter; B48.8 Other specified mycoses; R44.0 Auditory hallucinations; E44.0 Moderate protein-calorie malnutrition; A15.0 Tuberculosis of lung; Z20.822 Contact with and (suspected) exposure to COVID-19; E87.5 Hyperkalemia; R26.9 Unspecified abnormalities of gait and mobility; F10.20 Alcohol dependence, uncomplicated; K76.82 Hepatic encephalopathy; E87.6 Hypokalemia; D64.9 Anemia, unspecified; E87.70 Fluid overload, unspecified; R44.1 Visual hallucinations; F12.10 Cannabis abuse, uncomplicated; F14.10 Cocaine abuse, uncomplicated; Z79.899 Other long term (current) drug therapy; Z87.820 Personal history of traumatic brain injury; Z88.0 Allergy status to penicillin; Z79.4 Long term (current) use of insulin; X58.XXXA Exposure to other specified factors, initial encounter; Y93.89 Activity, other specified; Y92.89 Other specified places as the place of occurrence of the external cause; Y99.8 Other external cause status
CPT/HCPCS: 36415; 36556; 36600; 70450; 70490; 71045; 71250; 76705; 80048; 80053; 80202; 80307; 81001; 82010; 82140; 82607; 82805; 82962; 83036; 83605; 83735; 83930; 83935; 84100; 84443; 85025; 85610; 86703; 87040; 87070; 87077; 87081; 87186; 87205; 87426; 87804; 92610; 93005; 93306; 94002; 94003; 94640; 96365; 96372; 97110; 97116; 97163; 97530; 99291; G0378; J0131; J0692; J1450; J1815; J2470; J3480; J3490; J7042; J7060

== ENCOUNTER 2024-12-11 15:43 | Inpatient (IN) | payer MEDICARE ==
[~2024-12-11] VITALS: Ht 167.6 cm; Wt 52.1 kg
[~2024-12-11 15:43] MED LIST: ALCO1PAD13 XX; GLUC-224 VI; INSLANTI SC; INSRTEST SC; INSU-1639 XX; [UNRECOGNIZED DRUG - CODE] XX; [UNRECOGNIZED DRUG - CODE] XX
--- NOTE | 2024-12-11 16:45 | ED.PDOC ---
HPI (NEURO) HPI Comments Patient was recently admitted and discharged from the hospital with the following Final Diagnosis/Problems List # Hyperglycemic Hyperosmolar Syndrome likely due to underlying uncontrolled type 2 diabetes. HbA1C>14 # history of alcohol abuse # marijuana abuse, cocaine abuse # altered level of consciousness due to Toxic / metabolic encephalopathy , # Wernicke encephalopathy ? korsakoff? # Traumatic brain injury, ct head normal x3 # Visual and auditory hallucinations, new onset # Acute hypoxic respiratory failure likely due to sepsis due to staph aureus pneumonia # Tachypnea # Bibasilar Atelectasis # Subtle ground-glass attenuation of the right upper lobe could be infectious or inflammatory process. #fungal pneumonia #aspiration pneumonia # Moderate malnutrition: Nutrition supplement as needed, continue OG tube/ enteral nutrition, # Sepsis likely due to staph aureus pneumonia,resolved # septic shock due to aspiration pneumonia # fungal infection, due to kathy albicans: # Rule out pulmonary TB, other malignancy # euvolemic/ mildly hypervolemic:total positive volume, # Hypokalemia mild, 3.2, replenished # KEYSHAWN due to VMN HPI: Poor Historian. Today, patient presents as 69-year-old male sent from his PCP's office for evaluation of syncope and collapse. Patient was recently discharged from the hospital on November 27. Patient was recently diagnosed with diabetes and was unable to get his medications promptly. states that he ran out of his insulin pen two days ago. Patient had two syncope and collapse with head injuries one incident six days ago and and two falls today while at home and one at [email or web address]. Patient does not remember what happened. Patient was found with blood sugar gr eater than 500 at his PCP's office and that is why he sent him to the ED here. Dr. Prabhakar. Patient was recently discharged from the hospital with the above-mentioned diagnoses. Past Medical History: See above Past Surgical History: REVIEW OF SYSTEMS: CONSTITUTIONAL: Denies acute: fever, diaphoresis, chills, HEAD: Denies acute: headache, photophobia Eyes: Denies acute: Double vision, vision loss, eye pain, eye discharge. EARS: Denies acute: tinnitus, hearing loss, ear discharge, ear pain, THROAT: Denies acute: sore throat, swelling, difficulty swallowing , pain with swallowing, change in voice. NECK: Denies acute: neck pain, neck swelling, stiff neck. HEART: Denies acute : chest pain, palpitations, LUNGS: Denies acute: SOB, wheezing, cough, hemoptysis ABDOMEN: Denies acute: abdominal pain, Nausea, Vomiting, diarrhea, melena , hematemesis, hematochezia SKIN: Denies acute: rash, redness, lesions, itchiness. EXTREMITIES: Denies acute: calf pain, numbness, tingling, , Denies acute: Low back pain. Neuro: Denies acute: focal neurological deficit, motor or sensory focal neurological deficit, , seizure like activity, confusion, , change in mental status, loss of bowel or bladder function, cauda equina like symptoms. : Denies acute: dysuria, hematuria, flank pain, increase in urinary frequency. PSYCH: Denies acute: hallucination, suicidal ideation, homicidal ideation. PHYSICAL EXAM: General: no acute distress, awake and alert. Head: normocephalic, atraumatic. Neck: supple, trachea is midline, no swelling. Cervical spine: Palpation of the posterior midline of the cervical spine reveals no focal swelling, erythema, focal tenderness to palpation. Patient has normal range of motion. Throat: Normal phonation. Eyes:, no erythema, no purulent discharge, no proptosis, no icterus. Heart: regular rate, regular rhythm, no significant murmur appreciated. Lungs: no apparent respiratory distress, Able to speak in full sentences. No wheezing, no rhonchi, no crackles. No stridors Clear to auscultation bilaterally. Abdomen: non tender to palpation, non distended, soft, no guarding, no rebound, + bowel sounds. Neuro: Awake, Alert, oriented to name, self, situation, follows commands GCS=15. Speech is normal. Skin: no petechia, no purpura, no cyanosis, non-pale, not jaundice. Lower extremities: --no - Pitting edema no deformity, no focal swelling, no calf TTP. Patient has some minimal skin abrasion on the right knee and left thumb from a recent fall. No apparent deformity or tenderness to palpation or swelling on the right knee where his abrasion is.. Patient has no other complains of his extremities. Makes eye contact. moves all four extremities. Face: no apparent facial droop. PERRLA, EOM-I CN 2-12 are grossly intact, No nuchal rigidity, Kernig's sign, Brudzinski's sign, no meningeal signs. ED COURSE: Chief Complaint: Fall Injury Time Seen by MD: 16:25 Primary Care Provider: NONE Reviewed Notes: Nurses Notes, Medications, Allergies Information Source: Patient, Spouse Mode of Arrival: Wheelchair Severity: Moderate Dizziness/Weakness Severity: Unable to do activities Headache Severity: None Timing: Hours Duration: Since onset, Hours Prehospital treatment: None History of: None Past Medical History PAST MEDICAL HISTORY: DM Surgical History: Denies all surgeries Family History Family History: Reviewed,noncontributory to illness, Unknown Social History Smoker: Non-Smoker Alcohol: Denies ETOH Use Drugs: Unknown Lives In: Home Was a procedure done? Was a procedure done?: No Differential Diagnosis (SZ) Seizure: N/A General Weakness: Anemia, CVA, Dehydration, Dysrhythmia, Electrolyte imbalance, Encephalopathy, Guillain-Merrill, Hypoglycemia, Hypotension, Hypovolemia, Labyrinthitis, Meniere's disease, Myasthenia gravis, Myocardial infarction, Pulmonary embolus, Renal failure, Repiratory failure, TIA, VBI, Vertigo: central, Vertigo: peripheral, Vestibular neuronitis X-Ray, Labs, Meds, VS Vital Signs Date Time Temp Pulse Resp B/P (MAP) Pulse Ox O2 Delivery O2 Flow Rate FiO2 12/11/24 15:57 98.7 83 17 118/72 (87) 99 98.7 Lab Test 12/11/24 20:17 12/11/24 18:03 12/11/24 16:45 12/11/24 16:37 Range/Units Magnesium Level 2.0 2.1 1.6-2.6 mg/dL Troponin I High Sensitivity 80 *H 88 *H 87 *H </=54 ng/L Triglycerides Level 136 < 150 mg/dL Cholesterol Level 186 < 200 mg/dL LDL Cholesterol 107 H < 100 mg/dL HDL Cholesterol 62 H 40-59 mg/dL Beta-Hydroxybutyric Acid 0.102 < 0.4 mmol/L Ammonia < 10 L 11-32 umol/L White Blood Count 6.1 4.4-10.8 10^3/uL Red Blood Count 3.65 L 4.5-5.90 10^6/uL Hemoglobin 11.7 L 13.5-17.5 g/dL Hematocrit 34.7 L 41.0-53.0 % Mean Corpuscular Volume 95.0 80.0-100.0 fL Mean Corpuscular Hemoglobin 32.0 28.0-32.0 pg Mean Corpuscular Hemoglobin Concent 33.7 32.0-36.0 g/dL Red Cell Distribution Width 14.1 11.8-14.3 % Platelet Count 349 140-450 10^3/uL Mean Platelet Volume 8.8 6.9-10.8 fL Neutrophils (%) (Auto) 74.8 37.0-80.0 % Lymphocytes (%) (Auto) 17.2 10.0-50.0 % Monocytes (%) (Auto) 6.2 0.0-12.0 % Eosinophils (%) (Auto) 0.6 0.0-7.0 % Basophils (%) (Auto) 1.2 0.0-2.0 % Neutrophils # (Auto) 4.6 1.6-8.6 10 ^3/uL Lymphocytes # (Auto) 1.1 0.4-5.4 10 ^3/uL Monocytes # (Auto) 0.4 0-1.3 10 ^3/uL Eosinophils # (Auto) 0 0-0.8 10 ^3/uL Basophils # (Auto) 0.1 0-0.2 10 ^3/uL Nucleated Red Blood Cells 0.1 % Sodium Level 133 L 136-145 mmol/L Potassium Level 4.8 3.5-5.1 mmol/L Chloride Level 100 98-107 mmol/L Carbon Dioxide Level 28 20-31 mmol/L Anion Gap 5 5-15 Blood Urea Nitrogen 19 9-23 mg/dL Creatinine 1.09 0.700-1.30 mg/dL Glomerular Filtration Rate Calc 74 >90 mL/min BUN/Creatinine Ratio 17.4 10.0-20.0 Serum Glucose 372 H 74-106 mg/dL Lactic Acid Level 1.9 0.4-2.0 mmol/L Calcium Level 9.4 8.7-10.4 mg/dL Total Bilirubin 0.4 0.2-1.0 mg/dL Aspartate Amino Transferase (AST) 31 13-40 U/L Alanine Aminotransferase (ALT) 58 H 7-40 U/L Alkaline Phosphatase 168 H 46-116 U/L Total Protein 7.2 5.7-8.2 g/dL Albumin 4.2 3.2-4.8 g/dL Plasma/Serum Blood Alcohol < 3.0 <10 mg/dL Urine Color Colorless Yellow Urine Clarity Clear Clear Urine pH 5.5 5.0-9.0 Urine Specific [place] 1.036 H 1.001-1.035 Urine Protein Negative Negative Urine Ketones Negative Negative Urine Blood Negative Negative /uL Urine Nitrite Negative Negative Urine Bilirubin Negative Negative Urine Urobilinogen Normal Negative mg/dL Urine Leukocyte Esterase 1+ Negative /uL Urine RBC None seen 0 - 3 /hpf Urine Microscopic WBC 43 H 0-3 /HPF Urine Squamous Epithelial Cells None seen <5 /hpf Urine Bacteria None seen None Seen /hpf Urine Yeast (Budding) Loaded None Seen /hpf Urine Glucose 4+ H Normal mg/dL Urine Opiates Screen Neg NEGATIVE Urine Fentanyl Screen Neg NEGATIVE Urine Barbiturates Screen Neg NEGATIVE Urine Phencyclidine Screen Neg NEGATIVE Urine Amphetamines Screen Neg NEGATIVE Urine Benzodiazepines Screen Neg NEGATIVE Urine Cocaine Screen Neg NEGATIVE Urine Cannabinoids Screen Neg NEGATIVE [place] [address] Ph: [phone] DIAGNOSTIC IMAGING Diagnostic Imaging Report : [id number] Signed PATIENT: SANG QUINTANA ACCT: [id number] UNIT: [id number] : 1955 LOC: ER ROOM / BED: / AGE / SEX: 69 / M ADM STATUS: REG ER SERVICE 1613 ORDERING PHYSICIAN: EVERARDO HARPER DO PROCEDURE(s): HWOCT - HEAD WITHOUT CONTRAST REASON: FALL INJURY ORDER NUMBER(s): [id number], ACCESSION NUMBER(s): [id number] EXAM: CT HEAD WITHOUT CONTRAST INDICATION: FALL INJURY TECHNIQUE: CT of the head without intravenous contrast. Radiation Dose Information: CT Dose: CTDI volume is 54.75 mGy. Dose-length product is 942.16 mGy*cm The dose indicators for CT are the volume Computed Tomography (CT) Dose Index (CTDIvol) and the Dose Length Product (DLP), and are measured in units of mGy and mGy-cm, respectively. These indicators are not patient dose, but values generated from the CT scanner acquisition factors. The report includes radiation exposure data for exposures received during this examination. COMPARISON: CT HEAD WITHOUT CONTRAST on DOS: 11/17/24, CT HEAD WITHOUT CONTRAST on DOS: 11/17/24, CT HEAD WITHOUT CONTRAST on DOS: 11/16/24 FINDINGS: There is no evidence of acute intracranial hemorrhage, extra-axial collection, mass effect, midline shift, herniation or hydrocephalus. The ventricles, sulci and cisterns are age appropriate. The ramirez-white differentiation is intact. Patchy periventricular and subcortical white matter hypoattenuation is nonspecific but may be related to small vessel ischemic disease. The visualized paranasal sinuses and mastoid air cells are clear. The surrounding soft tissues and osseous structures are unremarkable. IMPRESSION: 1. No acute intracranial hemorrhage 2. No CT findings of displaced skull fracture 3. No CT findings of territorial ischemia ATED BY: MELANIA MARIE Jr., DO DICTATED DATE/TIME: 12/11/241723 SIGNED BY: MELANIA MARIE Jr., SIGNED DATE/TIME: 12/11/241723 CC: [place] [address] Ph: [phone] DIAGNOSTIC IMAGING Diagnostic Imaging Report : [id number] Signed PATIENT: SANG QUINTANA ACCT: [id number] UNIT: [id number] : 1955 LOC: ER ROOM / BED: / AGE / SEX: 69 / M ADM STATUS: REG ER SERVICE 1613 ORDERING PHYSICIAN: EVERARDO HARPER DO PROCEDURE(s): CXRP - CHEST PORTABLE REASON: DIZZY ORDER NUMBER(s): [id number], ACCESSION NUMBER(s): [id number] CHEST RADIOGRAPH Indication: DIZZY Technique: Single frontal view of the chest was obtained COMPARISON: XY CHEST PORTABLE on DOS: 11/22/24, XY CHEST PORTABLE on DOS: 11/21/24, XY CHEST PORTABLE on DOS: 11/20/24, XY CHEST XRAY 1 VIEW on DOS: 11/19/24, XY CHEST XRAY 1 VIEW on DOS: 11/17/24 FINDINGS: Lines and Tubes: None Lungs: Clear Pleura: No effusion. No pneumothorax. Cardiomediastinal contours: Unremarkable Bones: Unremarkable IMPRESSION: 1. No acute disease. ATED BY: MELANIA MORRIS MD DICTATED DATE/TIME: 12/11/241711 SIGNED BY: MELANIA MORRIS MD SIGNED DATE/TIME: 12/11/241711 CC: Time of 1ST Reevaluation: 16:55 Reevaluation 1ST: Unchanged Patient Education/Counseling: Diagnosis, Treatment Family Education/Counseling: Diagnosis, Treatment Comments Patient presented with the above HPI.---syncope and collapse---workup was initiated. patient was found with the above mentioned diagnosis. the following medications were ordered: please refer to order lists of meds and tests obtained by myself Dr. Harper. Patient ED course and VS have been stabilized. Patient has been reassessed in the ED and remained in a stable condition. Pertinent incidental findings were discussed with the patient and/or family. Patient/family voices understanding and is agreeable with plan. Patient has been observed in the ED adequate length of time to insure improvement/stability. Escalation of care considered: Consideration of escalation to observation or admission Patient was ADMITTED to the medicine team for further evaluation and treatment of their presentation. All the reports of any imaging studies that were ordered by myself were reviewed by myself. Departure 1 Departure Time of Disposition: 16:50 Impression: Primary Impression: Syncope and collapse Additional Impressions: Closed head injury Multiple falls Generalized weakness UTI (urinary tract infection) Yeast infection Elevated troponin Disposition: ADMITTED INPATIENT Admit to: [facility] Condition: Guarded Discharged With: Self Critical Care Note Critical Care Time?: Yes (45 min-critical care time only) Heart Score Heart Score: Heart Score Response (Comments) Value History Slightly Suspicious 0 EKG Normal 0 Age >65 2 Risk Factors >3 or Hx ASHD 2 Troponin 1-2 x's Normal limit 1 Total 5 I personally scribed for EVERARDO HARPER DO ([email or web address]) on 12/11/24 at 16:45. Electronically submitted by Homero Cuellar ([email or web address]). I personally scribed for EVERARDO HARPER DO ([email or web address]) on 12/11/24 at 18:14. Electronically submitted by Adonis Boyle ([email or web address]). I personally scribed for EVERARDO HARPER DO ([email or web address]) on 12/11/24 at 18:17. Electronically submitted by Margarita Nicole ([facility]). EVERARDO HARPER DO Dec 11, 2024 16:45
[2024-12-11 17:04] LABS: Basophils # (auto) 0.1 10 ^3/uL (0-0.2); Basophils % (auto) 1.2 % (0.0-2.0); Eosinophils # (auto) 0 10 ^3/uL (0-0.8); Eosinophils % (auto) 0.6 % (0.0-7.0); Hematocrit 34.7 % (41.0-53.0); Hemoglobin 11.7 g/dL (13.5-17.5); Lymphocytes # (auto) 1.1 10 ^3/uL (0.4-5.4); Lymphocytes % (auto) 17.2 % (10.0-50.0); Mean Corpuscular Hgb Conc. 33.7 g/dL (32.0-36.0); Monocytes # (auto) 0.4 10 ^3/uL (0-1.3); Monocytes % (auto) 6.2 % (0.0-12.0); Neutrophils # (auto) 4.6 10 ^3/uL (1.6-8.6); Neutrophils % (auto) 74.8 % (37.0-80.0); Nucleated Red Blood Cells % 0.1 %; Platelet Count (auto) 349 10^3/uL (140-450); Red Blood Cells 3.65 10^6/uL (4.5-5.90); Red Cell Distribution Width 14.1 % (11.8-14.3); White Blood Cell 6.1 10^3/uL (4.4-10.8)
[2024-12-11 17:09] LABS: Urine Bacteria None Seen /hpf (None Seen)
--- NOTE | 2024-12-11 17:14 | DVH ---
CHEST RADIOGRAPH Indication: DIZZY Technique: Single frontal view of the chest was obtained COMPARISON: XY CHEST PORTABLE on DOS: 11/22/24, XY CHEST PORTABLE on DOS: 11/21/24, XY CHEST PORTABLE o n DOS: 11/20/24, XY CHEST XRAY 1 VIEW on DOS: 11/19/24, XY CHEST XRAY 1 VIEW on DOS: 11/17/24 FINDINGS: Lines and Tubes: None Lungs: Clear Pleura: No effusion. No pneumothorax. Cardiomediastinal contours: Unremarkable Bones: Unremarkable IMPRESSION: 1. No acute disease.
--- NOTE | 2024-12-11 17:27 | DVH ---
EXAM: CT HEAD WITHOUT CONTRAST INDICATION: FALL INJURY TECHNIQUE: CT of the head without intravenous contrast. Radiation Dose Information: CT Dose: CTDI volume is 54.75 mGy. Dose-length product is 942.16 mGy*cm The dose indicators for CT are the volume Computed Tomography (CT) Dose Index (CTDIvol) and the Dose Length Product (DLP), and are measured in units of mGy and mGy-cm, respectively. These indicators are not patient dose, but values generated from the CT scanner acquisition factors. The report includes radiation exposure data for exposures received during this examination. COMPARISON: CT HEAD WITHOUT CONTRAST on DOS: 11/17/24, CT HEAD WITHOUT CONTRAST on DOS: 11/17/24, CT HE AD WITHOUT CONTRAST on DOS: 11/16/24 FINDINGS: There is no evidence of acute intracranial hemorrhage, extra-axial collection, mass effect, midline s hift, herniation or hydrocephalus. The ventricles, sulci and cisterns are age appropriate. The ramirez-white differentiation is intact. Patchy periventricular and subcortical white matter hypoattenuation is nonspecific but may be related to small vessel ischemic disease. The visualized paranasal sinuses and mastoid air cells are clear. The surrounding soft tissues and osseous structures are unremarkable. IMPRESSION: 1. No acute intracranial hemorrhage 2. No CT findings of displaced skull fracture 3. No CT findings of territorial ischemia
[2024-12-11 17:30] LABS: Urine Blood Negative /uL (Negative); Urine Budding Yeast LOADED /hpf (None Seen); Urine Clarity Clear (Clear); Urine Color Colorless (Yellow); Urine Protein, UAD Negative (Negative); Urine Specific Gravity 1.036 (1.001-1.035); Urine Squamous Epithelial Cell None Seen /hpf (<5); Urine Urobilinogen Normal (Negative); Urine WBC 43 /HPF (0-3); Urine pH 5.5 (5.0-9.0)
[2024-12-11 17:33] LABS: Amphetamine Screen, Urine Neg (NEGATIVE); Barbiturate Scree,Urine Neg (NEGATIVE); Benzodiazephine Screen, Urine Neg (NEGATIVE); Cannabinoid Screen, Urine Neg (NEGATIVE); Cocaine Screen, Urine Neg (NEGATIVE); Opiate Scree,Urine Neg (NEGATIVE); Phencyclidine Screen, Urine Neg (NEGATIVE)
[2024-12-11 17:43] LABS: Anion Gap 5 (5-15); BUN/Creatinine Ratio 17.4 (10.0-20.0); Blood Urea Nitrogen 19 mg/dL (9-23); Calcium 9.4 mg/dL (8.7-10.4); Carbon Dioxide 28 mmol/L (20-31); Chloride 100 mmol/L (98-107); Magnesium 2.1 mg/dL (1.6-2.6); Potassium 4.8 mmol/L (3.5-5.1); Total Protein 7.2 g/dL (5.7-8.2)
[2024-12-11 17:44] LABS: Albumin 4.2 g/dL (3.2-4.8); Aspartate Aminotransferase 31 U/L (13-40); Bilirubin, Total 0.4 mg/dL (0.2-1.0)
[2024-12-11 18:34] LABS: Alanine Aminotransferase 58 U/L (7-40); Alkaline Phosphatase 168 U/L (46-116); Glucose 372 mg/dL (74-106); Sodium 133 mmol/L (136-145)
[2024-12-11] MEDS ORDERED: DEXTROSE (50%) 50ML SYRG IV PRN (23:30)
[2024-12-11] MEDS ORDERED: HYDROcodone-ACET 5/325MG TAB PO PRN (23:30)
--- NOTE | 2024-12-11 23:38 | DVHHPRES ---
History of Present Illness Resident Creating Document: DEVIN ANNE RESDIENT History of Present Illness This is a 69-year-old male with past medical history of diabetes type 2, alcohol use disorder referred from the PCP clinic (Dr. Polanco) due to hyperglycemia. Patient was discharged on 11/27/24 from [facility], had admitted due to hyperglycemia, upon dose discharge the patient was prescribed insulin but the patient could not receive insulin. Patient reports polyuria, polydipsia, bilateral lower limb shaking and weakness. He also reports of multiple mechanical fall, last time was 5 days back at home which lead to right lower limb abrasion. He denies loss of consciousness, nausea, vomiting, blurry vision or any motor or sensory deficits. He has history of hip surgery, since that time he was bilateral lower limb weakness PMHx: Diabetes type 2, alcohol use disorder PSHx: History of hip surgery Family history: Not contributory Social history: Uses walker for the mobility, history of alcohol use disorder, ex marijuana and cocaine abuser. Home medication: Tylenol, patient was prescribed insulin upon last discharge but the patient could not received Allergic history: Penicillins Review of Systems Review of Systems General: patient denies fever, fatigue, weaknes, sweating, any recent changes in appetite and weight HEENT: No headaches, visiual changes, hearing loss, tinnitus, nasal congestion and discharge, and sore throat. Cardiovascular: Denies chest pain, palpitations, dyspnea on exertion, orthopnea, or claudication. Respiratory: No cough, and wheezing. Gastrointestinal: Denies nausea, vomiting, dysphagia, odynophagia, heartburn, abdominal pain, flatulence, bloating, diarrhea, constipation, change in stool, or blood in stool. Genitourinary: No dysuria, hematuria, discharge, frequency, urgency, nocturia, incontinence, and urinary retention. Endocrine: No heat or cold intolerance, polydipsia, polyuria, and polyphagia. Neurological: No dizziness, extremity weakness and numbness, tremors, gait disturbance, seizures, and memory impairment. Psychiatric: Denies depression, anxiety,or insomnia. Musculoskeletal: Reports bilateral lower limb weakness Skin: No rashes, itching, skin lesion, changes in hair, nail, skin texture and breast. Hematologic/Lymphatic: Denies easy bruising, bleeding tendencies, or lymph node enlargement. Allergies: Coded Allergies: Penicillins (Verified Allergy, Unknown, 2/20/25) Exam Vital Signs Vital Signs Date Time Temp Pulse Resp B/P (MAP) Pulse Ox O2 Delivery O2 Flow Rate FiO2 12/11/24 15:57 98.7 83 17 118/72 (87) 99 98.7 Exam General Appearance: Alert, Oriented X3, Cooperative, No acute distress HEENT: Atraumatic, PERRLA, EOMI, Mucous membrane moist/pink Respiratory: Clear to auscultation, Normal air movement Cardiovascular: Regular rate, Normal S1, Normal S2, No murmurs, no chest wall tenderness Abdominal: Normal bowel sounds, Soft, No tenderness, No hepatospenomegaly, No masses Extremities: No clubbing, No cyanosis, No edema, Normal pulses, No tenderness/swelling Skin: Abrasion on the right lower limb below-knee Neuro: Normal gait, Normal speech, Strength at 5/5 X4 ext, Normal tone, Sensation intact, Cranial nerves 3-12 NL, Reflexes 2+ Psych/Mental Status: Mental status NL, Mood NL Labs/Xrays Labs Test 12/11/24 20:17 12/11/24 18:03 12/11/24 16:45 12/11/24 16:37 Range/Units Troponin I High Sensitivity 80 *H </=54 ng/L Ammonia < 10 L 11-32 umol/L White Blood Count 6.1 4.4-10.8 10^3/uL Red Blood Count 3.65 L 4.5-5.90 10^6/uL Hemoglobin 11.7 L 13.5-17.5 g/dL Hematocrit 34.7 L 41.0-53.0 % Mean Corpuscular Volume 95.0 80.0-100.0 fL Mean Corpuscular Hemoglobin 32.0 28.0-32.0 pg Mean Corpuscular Hemoglobin Concent 33.7 32.0-36.0 g/dL Red Cell Distribution Width 14.1 11.8-14.3 % Platelet Count 349 140-450 10^3/uL Mean Platelet Volume 8.8 6.9-10.8 fL Neutrophils (%) (Auto) 74.8 37.0-80.0 % Lymphocytes (%) (Auto) 17.2 10.0-50.0 % Monocytes (%) (Auto) 6.2 0.0-12.0 % Eosinophils (%) (Auto) 0.6 0.0-7.0 % Basophils (%) (Auto) 1.2 0.0-2.0 % Neutrophils # (Auto) 4.6 1.6-8.6 10 ^3/uL Lymphocytes # (Auto) 1.1 0.4-5.4 10 ^3/uL Monocytes # (Auto) 0.4 0-1.3 10 ^3/uL Eosinophils # (Auto) 0 0-0.8 10 ^3/uL Basophils # (Auto) 0.1 0-0.2 10 ^3/uL Nucleated Red Blood Cells 0.1 % Sodium Level 133 L 136-145 mmol/L Potassium Level 4.8 3.5-5.1 mmol/L Chloride Level 100 98-107 mmol/L Carbon Dioxide Level 28 20-31 mmol/L Anion Gap 5 5-15 Blood Urea Nitrogen 19 9-23 mg/dL Creatinine 1.09 0.700-1.30 mg/dL Glomerular Filtration Rate Calc 74 >90 mL/min BUN/Creatinine Ratio 17.4 10.0-20.0 Serum Glucose 372 H 74-106 mg/dL Lactic Acid Level 1.9 0.4-2.0 mmol/L Calcium Level 9.4 8.7-10.4 mg/dL Magnesium Level 2.1 1.6-2.6 mg/dL Total Bilirubin 0.4 0.2-1.0 mg/dL Aspartate Amino Transferase (AST) 31 13-40 U/L Alanine Aminotransferase (ALT) 58 H 7-40 U/L Alkaline Phosphatase 168 H 46-116 U/L Total Protein 7.2 5.7-8.2 g/dL Albumin 4.2 3.2-4.8 g/dL Plasma/Serum Blood Alcohol < 3.0 <10 mg/dL Urine Color Colorless Yellow Urine Clarity Clear Clear Urine pH 5.5 5.0-9.0 Urine Specific [place] 1.036 H 1.001-1.035 Urine Protein Negative Negative Urine Ketones Negative Negative Urine Blood Negative Negative /uL Urine Nitrite Negative Negative Urine Bilirubin Negative Negative Urine Urobilinogen Normal Negative mg/dL Urine Leukocyte Esterase 1+ Negative /uL Urine RBC None seen 0 - 3 /hpf Urine Microscopic WBC 43 H 0-3 /HPF Urine Squamous Epithelial Cells None seen <5 /hpf Urine Bacteria None seen None Seen /hpf Urine Yeast (Budding) Loaded None Seen /hpf Urine Glucose 4+ H Normal mg/dL Urine Opiates Screen Neg NEGATIVE Urine Fentanyl Screen Neg NEGATIVE Urine Barbiturates Screen Neg NEGATIVE Urine Phencyclidine Screen Neg NEGATIVE Urine Amphetamines Screen Neg NEGATIVE Urine Benzodiazepines Screen Neg NEGATIVE Urine Cocaine Screen Neg NEGATIVE Urine Cannabinoids Screen Neg NEGATIVE Assessment/Plan Assessment/Plan Uncontrolled diabetes type 2 with hyperglycemia NSTEMI, likely type [address] scan shows no acute intracranial abnormalities Hb A1c is more than 14 Insulin Lantus 15 units daily Insulin regular according to aggressive SS IV fluid Mild hyponatremia Mild anemia Transaminitis DIET: Diabetic diet DVT PROPHYLAXIS: Lovenox GI PROPHYLAXIS:: Protonix DISPOSITION: Med/surge Patient's status and paln discussed with the patient. Case discussed with Dr. Montemayor Plan discussed with: Patient, Other (RN) My Orders Orders - DEVIN ANNE RESDIALMA DELIA Procedure Category Date Status Time Admit ADMIT 12/11/24 Verified 23:27 Code Status CODE 12/11/24 Verified 23:27 Vital Signs [facility] 12/11/24 Verified 23:27 Review Orders With JUAN 12/11/24 Verified Adm. 23:27 Consistent DIET 12/12/24 Verified Carb(Ccho)Diabetes Breakfast Acetaminophen Tablet PHA 12/11/24 Verified (Tylenol Tablet) 23:30 Notify Of Changes [facility] 12/11/24 Verified From Base 23:27 Advance Directive [facility] 12/11/24 Verified 23:27 Urinalysis LAB 12/11/24 Verified 23:27 Date of Service: Dec 11, 2024 Billing Provider: GAMALIEL MONTEMAYOR MD Common Visit Codes: [id number] INP/OBS CARE (HIGH) Secondary Visit Codes: [id number] CARE PLAN 30 MINUTES DEVIN ANNE RESDIENT Dec 11, 2024 23:38 GAMALIEL MONTEMAYOR MD Dec 12, 2024 17:41
[2024-12-12 00:17] LABS: Triglycerides 136 mg/dL (< 150)
[2024-12-12 00:19] LABS: Cholesterol 186 mg/dL (< 200); LDL Cholesterol 107 mg/dL (< 100)
[2024-12-12 00:21] LABS: HDL Cholesterol 62 mg/dL (40-59)
[2024-12-12] MEDS: SODIUM CHLORIDE 0.9% 1,000 ML IV ONE ×2 (00:42→01:19)
[2024-12-12] MEDS: ASPirin-EC 325mg tab PO ONE (01:07)
[2024-12-12] MEDS: INSULIN LANTUS (GLARGINE) 1 /0.01ml (100units/ml) SC ONE (01:07)
[2024-12-12] MEDS: FLUCONAZOLE 100 MG TAB PO ONE (01:07)
[2024-12-12 01:16] VITALS: RESP 14
[2024-12-12 05:45] LABS: Basophils # (auto) 0.1 10 ^3/uL (0-0.2); Basophils % (auto) 1.3 % (0.0-2.0); Eosinophils # (auto) 0.1 10 ^3/uL (0-0.8); Eosinophils % (auto) 2.2 % (0.0-7.0); Hematocrit 31.3 % (41.0-53.0); Hemoglobin 10.4 g/dL (13.5-17.5); Lymphocytes # (auto) 1.5 10 ^3/uL (0.4-5.4); Mean Corpuscular Hemoglobin 31.7 pg (28.0-32.0); Mean Corpuscular Hgb Conc. 33.4 g/dL (32.0-36.0); Mean Corpuscular Volume 94.9 fL (80.0-100.0); Monocytes # (auto) 0.5 10 ^3/uL (0-1.3); Monocytes % (auto) 7.2 % (0.0-12.0); Neutrophils # (auto) 4.2 10 ^3/uL (1.6-8.6); Neutrophils % (auto) 66.3 % (37.0-80.0); Platelet Count (auto) 299 10^3/uL (140-450); Red Cell Distribution Width 14.2 % (11.8-14.3); White Blood Cell 6.3 10^3/uL (4.4-10.8)
[2024-12-12 05:55] LABS: Calcium 8.8 mg/dL (8.7-10.4); Chloride 103 mmol/L (98-107); Potassium 3.8 mmol/L (3.5-5.1)
[2024-12-12 05:56] LABS: Anion Gap 7 (5-15); Carbon Dioxide 26 mmol/L (20-31)
[2024-12-12 06:01] LABS: BUN/Creatinine Ratio 16.2 (10.0-20.0); Blood Urea Nitrogen 17 mg/dL (9-23); Sodium 136 mmol/L (136-145)
[2024-12-12 06:02] LABS: Glucose 237 mg/dL (74-106)
[2024-12-12 06:04] LABS: INR 0.94 (0.9-1.15); Partial Thromboplastin Time 23.3 SEC (24.5-34.5)
[2024-12-12 06:18] VITALS: PULSE 70; RESP 16; O2SAT 98
[2024-12-12] MEDS: ACETAMINOPHEN 325 MG TAB PO PRN (06:23)
[2024-12-12] MEDS: ACCU-CHEK COMFORT CURVE STRIP VI SCH (07:00)
[2024-12-12] MEDS: InsuLIN REG 1unit/0.01ml Soln (100units/ml) SC SCH ×2 (07:03→21:23)
[2024-12-12] MEDS: ENOXAPARIN SOD 40 MG/0.4 ML SYRINGE SC SCH (10:23)
[2024-12-12] MEDS: INSULIN LANTUS (GLARGINE) 1 /0.01ml (100units/ml) SC SCH (10:23)
[2024-12-12 11:03] VITALS: BP 137/72; PULSE 77; PULSE 78; RESP 17; RESP 18; TEMP 97.9; O2SAT 98; O2SAT 99
--- NOTE | 2024-12-12 11:48 | DVHPNRES ---
Progress Note Date Seen: Dec 12, 2024 Resident Creating Document: NETTA RIVERA RESIDENT Medical Necessity Reason Pt with a Central, PICC or Fol: No Subjective Review of Systems This is a 69-year-old male with past medical history of diabetes type 2, alcohol use disorder referred from the PCP clinic (Dr. Polanco) due to hyperglycemia. Patient was discharged on 11/27/24 from [facility], had admitted due to hyperglycemia, upon dose discharge the patient was prescribed insulin but the patient could not receive insulin. Patient reports polyuria, polydipsia, bilateral lower limb shaking and weakness. He also reports of multiple mechanical fall, last time was 5 days back at home which lead to right lower limb abrasion. He denies loss of consciousness, nausea, vomiting, blurry vision or any motor or sensory deficits. He has history of hip surgery, since that time he was bilateral lower limb weakness The patient was seen and examined on the bedside. He is alert oriented x3. Patient is feeling well and no active complaint at this time. Constitutional: Weakness, No: Fever, Chills, Sweats, Malaise, Other Eyes: No: Pain, Vision change, Conjunctivae inflammation, Eyelid inflammation, Other, Redness ENT: No: Ear pain, Ear discharge, Nose pain, Nose discharge, Nose congestion, Mouth pain, Mouth swelling, Throat pain, Throat swelling, Other Respiratory: Shortness of breath, improving No: Cough, Dry,Wheezing, Hemoptysis, Pleuritic Pain, Sputum, Wheezing, Other Cardiovascular: No: Chest Pain, Palpitations, Orthopnea, Paroxysmal Noc. Dyspnea, Edema, Lt Headedness, Other Gastrointestinal: No: Nausea, Vomiting, Abdominal Pain, Diarrhea, Constipation, Melena, Hematochezia, Other Musculoskeletal: No: other, neck pain, shoulder pain, arm pain, back pain, hand pain, leg pain, foot pain Neurological:; No: Weakness, Numbness, Incoordination, Change in speech, Confusion, Seizures Objective vital signs Vital Sign Date Time Temp Pulse Resp B/P (MAP) Pulse Ox O2 Delivery O2 Flow Rate FiO2 12/12/24 11:03 97.9 78 17 137/72 (93) 99 97.9 12/12/24 09:00 Room Air* 0 21 Total Intake and Output 12/11/24 12/11/24 12/12/24 15:00 23:00 07:00 Intake Total 2000 ml Balance 2000 ml medications Current Medications Medications Dose Ordered Sig/Hilario Route Start Time Stop Time Status Last Admin Dose Admin Acetaminophen 650 mg Q6HP PRN PO 12/11/24 23:30 12/12/24 06:23 650 MG Acetaminophen/ Hydrocodone Bitart 1 tab Q4HP PRN PO 12/11/24 23:30 Enoxaparin Sodium 40 mg DAILY SC 12/12/24 10:00 12/12/24 10:23 40 MG Diagnostic Test (Pha) 1 strip ACHS 12/12/24 07:00 12/12/24 07:00 1 STRIP Insulin Human Regular AC SC 12/12/24 07:00 12/12/24 07:03 4 UNITS Insulin Human Regular HS SC 12/12/24 22:00 Dextrose 50 ml UD PRN IV 12/11/24 23:30 Insulin Glargine 15 units DAILY@1000 SC 12/12/24 10:00 12/12/24 10:23 15 UNITS Examination Physical examination: General Appearance: Alert, Oriented X3, Cooperative, No acute distress HEENT: Atraumatic, PERRLA, EOMI, Mucous membrane moist/pink Respiratory: Clear to auscultation, Normal air movement Cardiovascular: Regular rate, Normal S1, Normal S2, No murmurs, no chest wall tenderness Abdominal: Normal bowel sounds, Soft, No tenderness, No hepatospenomegaly, No masses Extremities: Abrasion in the rt knee, No clubbing, No cyanosis, No edema, Normal pulses, No tenderness/swelling Skin: No rashes, No breakdown, No significant lesion Neuro: Use cane, Normal speech, Strength at 5/5 X4 ext, Normal tone, Sensation intact, grossly intact cranial nerves. Psych/Mental Status: Mental status NL, Mood NL laboratory and microbiology Laboratory Tests 12/12/24 05:21 Test 12/12/24 05:21 Range/Units Serum Glucose 237 #H 74-106 mg/dL Labs and/or images reviewed: Labs reviewed by me, Image(s) reviewed by me Problem List/Assessment/Plan Problem List/Assessment/Plan Assessment and plan: # Uncontrolled type 2 diabetes mellitus with hyperglycemia, HbA1C>14 on 11/16/24 # Ruled out diabetic ketoacidosis # Dehydration likely due to hyperglycemia # Possible NSTEMI type 2 due to above - On admission blood sugar was 338, normal anion gap and beta hydroxybutyrate negative - Lantus 15 units at q.a.m. and aggressive sliding scale of insulin - Aspirin 325 mg po once. - Echo on 11/21 revealed EF 60 % - Cardiology on board. # History of fall - CT head without contrast revealed no acute intracranial abnormality # Transaminitis likely due to dehydration - LFT revealed mild elevation of ALT and ALP - Patient got 2L IV bolus. - Monitor CMP # Possible severe malnutrition, BMI 18.2 Kg/m2 # Possible chronic iron defieciency anaemia - Counseled patient regarding healthy nutritious diet. DIET: Diabetic diet DVT PROPHYLAXIS: Lovenox GI PROPHYLAXIS:: Protonix DISPOSITION: Med/surge Code status : Full code Plan discussed with Plan discussed with: Patient, Other My Orders My Orders Orders - NETTA RIVERA Procedure Category Date Status Time Urine Bacterial LARRY 12/12/24 Uncollected Culture 07:17 * Cardiology Consult CONS 12/12/24 Transmitted 11:20 NETTA RIVERA RESIDENT Dec 12, 2024 11:48
[2024-12-12 12:58] VITALS: BP 131/74; PULSE 77; RESP 17; TEMP 97.5; O2SAT 98
--- NOTE | 2024-12-12 15:01 | DVHINCON2 ---
MELONY FORD [facility] 12/12/24 1501: Date Seen: Dec 12, 2024 Referring Physician MD Radha Reason for Consultation Elevated troponin levels History of Present Illness This is a 69-year-old man who presented to the emergency room with a chief complaint of right lower extremity paresthesia. The patient complains of right lower extremity paresthesia described as a pins and needle sensation in a subsequent fall injury stating his leg gave out. Presents with an abrasion below the right knee. Cardiology consulted given flat troponin levels in the 80s ng/L. He underwent a 12 lead electrocardiogram revealing a normal sinus rhythm without evidence of ischemia. Denies chest pain, palpitations, diaphoresis, SOB, dizziness, or syncopal events. Significant medical history includes insulin-dependent diabetes mellitus, alcohol use disorder, and remote history of cocaine use. Past Medical History Past medical history reviewed. No other significant than mentioned above. Past Surgical History Left hip repair Left lower extremity Family History: Patient reports no known family medical history. Family History Family history reviewed. Not significant for cardiovascular disease. Social History Denies the use of illicit drugs or tobacco use. Admits to alcohol use. Allergies: Coded Allergies: Penicillins (Verified Allergy, Unknown, 11/16/24) Home Meds Active Scripts Insulin Regular (Human) (Novolin R) 100 Unit/Ml Inj, 1 UNIT SC ACHS PRN for 30 Days, #1 BOT Blood Sugar (mg/dL) Low Dose Scale Moderate Dose Scale High Dose Scale Patient-Specific Scale <70 Initiate Hypoglycemia 70-130 0 units 131-180 4 units 181-240 8 units 241-300 10 units 301-350 12 units 351-400 15 units >400 20 units and call Prov:LITO MARCIAL RESIDENT 11/28/24 Needle (Disp) 25 G (Easy Touch Fliplock Needl 25G X 1") 1 Mis KARINA Cali XX ACHS PRN, #120 before meal and bedtime Prov:LITO MARCIAL RESIDENT 11/27/24 Isopropyl Alcohol (Alcohol Swabs) 70 % KARINA Mancia XX ACHS PRN, #120 before meal and bedtime Prov:LITO MARCIAL RESIDENT 11/27/24 Insulin Syringe/Needle U-100 (Aq Insulin Syringe/1Ml/29 29G X 1/2" 1 ml) 1 Mis KARINA Cali XX ACHS PRN, #120 before meal and at morning time Prov:LITO MARCIAL 11/27/24 Blood Glucose Monitoring Suppl (Easy Talk Blood Glucose M) System Mis, EA XX ACHS PRN, #1 before meal and bedtime Prov:LITO MARCIAL 11/27/24 Glucose Blood (EASY TOUCH GLUCOSE TEST S) Strips Vonda, 1 EA ACHS for 30 Days, #120 MISC Prov:LITO MARCIAL 11/27/24 Insulin Glargine (Lantus) 100 Unit/Ml Inj, 15 UNITS SC QAM for 30 Days, #10 ML every morning subcutaneous injection. Prov:LITO MARCIAL 11/27/24 Home Meds Home medications reviewed. Current Medications Current Medications Medications (Trade) Dose Ordered Sig/Hilario Route PRN Reason Start Time Stop Time Status Last Admin Acetaminophen (Tylenol Tablet) 650 mg Q6HP PRN PO PAIN SCALE 1-3 OR TEMP>100.4 12/11/24 23:30 12/12/24 06:23 Acetaminophen/ Hydrocodone Bitart ([place] 5/325MG Tab) 1 tab Q4HP PRN PO MODERATE PAIN (4-6 PAIN SCALE) 12/11/24 23:30 Enoxaparin Sodium (Lovenox) 40 mg DAILY SC 12/12/24 10:00 12/12/24 10:23 Diagnostic Test (Pha) (Accu-Chek Comfort Curve T) 1 strip ACHS 12/12/24 07:00 12/12/24 13:55 Insulin Human Regular (InsuLIN R) AC SC 12/12/24 07:00 12/12/24 13:55 Insulin Human Regular (InsuLIN R) HS SC 12/12/24 22:00 Dextrose 50 ml UD PRN IV Blood Sugar LESS THAN 60 12/11/24 23:30 Insulin Glargine (Lantus) 15 units DAILY@1000 SC 12/12/24 10:00 12/12/24 10:23 Review of Systems Constitutional: No symptom reported Ears, Nose, & Throat: No symptom reported Eyes: No symptom reported Neurological: No symptoms reported Pulmonary/Respiratory: No symptom reported Cardiovascular: No symptom reported Gastrointestinal: No symptom reported Genitourinary: No symptom reported Musculoskeletal: RLE paresthesia Skin: No symptom reported Psychiatric: No symptom reported Endocrine: No symptom reported Hemotologic/Lymphatic: No symptom reported Vital Signs Vital Signs Date Time Temp Pulse Resp B/P (MAP) Pulse Ox O2 Delivery O2 Flow Rate FiO2 12/12/24 12:58 97.5 77 17 131/74 (93) 98 97.5 12/12/24 09:00 Room Air* 0 21 Physical Exam General Appearance: Cooperative. Well developed. Well nourished. In no acute distress Head Exam: Normal inspection Neck Exam: Normal inspection. Non-tender. Normal alignment Pulmonary/Respiratory: Chest non-tender. Clear bilateral breath sounds Cardiovascular/Chest: Regular rate and rhythm. S1, S2. NSR. No murmurs. No JVD. Peripheral Pulses: 2+ Radial (R). 2+ Radial (L). 2+ Pedal (R). 2+ Pedal (L) Abdominal Exam: Normal bowel sounds. Soft. Nontender. No hepatospenomegaly. No masses Ankle Exam: Negative ankle edema Lower extremities: Negative lower extremity edema Neuro/Mental Status: A&O x4. Coherent Thoughts/Psych: Normal thought pattern. Appropriate mood and affect. Good judgement and insight Appearance: In no acute distress Skin Exam: Below right knee abrasion. Left index burn Labs/Diagnostic Data Labs Test 12/12/24 12:46 12/12/24 05:21 12/12/24 00:45 12/11/24 20:17 Range/Units POC Glucose 297 H 70-106 mg/dl White Blood Count 6.3 4.4-10.8 10^3/uL Red Blood Count 3.30 L 4.5-5.90 10^6/uL Hemoglobin 10.4 L 13.5-17.5 g/dL Hematocrit 31.3 L 41.0-53.0 % Mean Corpuscular Volume 94.9 80.0-100.0 fL Mean Corpuscular Hemoglobin 31.7 28.0-32.0 pg Mean Corpuscular Hemoglobin Concent 33.4 32.0-36.0 g/dL Red Cell Distribution Width 14.2 11.8-14.3 % Platelet Count 299 140-450 10^3/uL Mean Platelet Volume 8.8 6.9-10.8 fL Neutrophils (%) (Auto) 66.3 37.0-80.0 % Lymphocytes (%) (Auto) 23.0 10.0-50.0 % Monocytes (%) (Auto) 7.2 0.0-12.0 % Eosinophils (%) (Auto) 2.2 0.0-7.0 % Basophils (%) (Auto) 1.3 0.0-2.0 % Neutrophils # (Auto) 4.2 1.6-8.6 10 ^3/uL Lymphocytes # (Auto) 1.5 0.4-5.4 10 ^3/uL Monocytes # (Auto) 0.5 0-1.3 10 ^3/uL Eosinophils # (Auto) 0.1 0-0.8 10 ^3/uL Basophils # (Auto) 0.1 0-0.2 10 ^3/uL Nucleated Red Blood Cells 0.0 % Prothrombin Time 10.0 9.3-11.8 sec Prothrombin Time INR 0.94 0.9-1.15 Activated Partial Thromboplast Time 23.3 L 24.5-34.5 SEC Sodium Level 136 136-145 mmol/L Potassium Level 3.8 3.5-5.1 mmol/L Chloride Level 103 98-107 mmol/L Carbon Dioxide Level 26 20-31 mmol/L Anion Gap 7 5-15 Blood Urea Nitrogen 17 9-23 mg/dL Creatinine 1.05 0.700-1.30 mg/dL Glomerular Filtration Rate Calc 78 >90 mL/min BUN/Creatinine Ratio 16.2 10.0-20.0 Serum Glucose 237 #H 74-106 mg/dL Calcium Level 8.8 8.7-10.4 mg/dL Serum Osmolality 298 278-298 mOsm/kg Magnesium Level 2.0 1.6-2.6 mg/dL Troponin I High Sensitivity 80 *H </=54 ng/L Triglycerides Level 136 < 150 mg/dL Cholesterol Level 186 < 200 mg/dL LDL Cholesterol 107 H < 100 mg/dL HDL Cholesterol 62 H 40-59 mg/dL Beta-Hydroxybutyric Acid 0.102 < 0.4 mmol/L Test 12/11/24 18:03 12/11/24 16:45 12/11/24 16:37 Range/Units Ammonia < 10 L 11-32 umol/L Lactic Acid Level 1.9 0.4-2.0 mmol/L Total Bilirubin 0.4 0.2-1.0 mg/dL Aspartate Amino Transferase (AST) 31 13-40 U/L Alanine Aminotransferase (ALT) 58 H 7-40 U/L Alkaline Phosphatase 168 H 46-116 U/L Total Protein 7.2 5.7-8.2 g/dL Albumin 4.2 3.2-4.8 g/dL Plasma/Serum Blood Alcohol < 3.0 <10 mg/dL Urine Color Colorless Yellow Urine Clarity Clear Clear Urine pH 5.5 5.0-9.0 Urine Specific [place] 1.036 H 1.001-1.035 Urine Protein Negative Negative Urine Ketones Negative Negative Urine Blood Negative Negative /uL Urine Nitrite Negative Negative Urine Bilirubin Negative Negative Urine Urobilinogen Normal Negative mg/dL Urine Leukocyte Esterase 1+ Negative /uL Urine RBC None seen 0 - 3 /hpf Urine Microscopic WBC 43 H 0-3 /HPF Urine Squamous Epithelial Cells None seen <5 /hpf Urine Bacteria None seen None Seen /hpf Urine Yeast (Budding) Loaded None Seen /hpf Urine Glucose 4+ H Normal mg/dL Urine Opiates Screen Neg NEGATIVE Urine Fentanyl Screen Neg NEGATIVE Urine Barbiturates Screen Neg NEGATIVE Urine Phencyclidine Screen Neg NEGATIVE Urine Amphetamines Screen Neg NEGATIVE Urine Benzodiazepines Screen Neg NEGATIVE Urine Cocaine Screen Neg NEGATIVE Urine Cannabinoids Screen Neg NEGATIVE Assessment Insulin-dependent diabetes mellitus with hyperglycemia NSTEMI, likely type 2 secondary to above Uncontrolled diabetes mellitus, HgbA1C >14.0% Dyslipidemia Anemia and chronic disease Alcohol use disorder Plan/Recommendation (Dr. Dumont) The patient underwent a recent transthoracic echocardiogram revealing an LVEF of 60% with normal RV function and no severe valve abnormalities noted. Likely NSTEMI type 2 secondary to hyperglycemic events. Continue tight glycemic control. Per patient, he has no insulin at home. Strongly recommended on medical compliance, diet, and exercise. There is no further cardiac workup indicated at this time. Kindly call if in need to re-consult. Thank you for allowing us to participate in this patient's care. This medical document was created using an electronic medical record system with voice recognition software and computerized dictation system. Although this document has been carefully reviewed, there might still be some phonetic and t ypographical errors. Occasional wrong-word or ``sound-alike substitutions may have occurred due to the inherent limitations of voice recognition software. These areas are purely typographical due to imperfections of the software programs and do not reflect any compromise in the patient's medical care. Please read the chart carefully and recognize, using context, where these alberto bstitutions have occurred. Plan discussed with: Patient, Other NYHA Physical activity limitations: NA Date of Service: Dec 12, 2024 Billing Provider: MELONY FORD [employer] DEVELOPER Cardiology Common Codes: [id number] INP/OBS CARE (High) ROXANNE CALVERT DO 12/12/241940: Date Seen: Dec 12, 2024 Family History: Patient reports no known family medical history. Allergies: Coded Allergies: Penicillins (Verified Allergy, Unknown, 11/16/24) Home Meds Active Scripts Insulin Regular (Human) (Novolin R) 100 Unit/Ml Inj, 1 UNIT SC ACHS PRN for 30 Days, #1 BOT Blood Sugar (mg/dL) Low Dose Scale Moderate Dose Scale High Dose Scale Patient-Specific Scale <70 Initiate Hypoglycemia 70-130 0 units 131-180 4 units 181-240 8 units 241-300 10 units 301-350 12 units 351-400 15 units >400 20 units and call MD Prov:ALMAZAN LITO Thompson RESIDENT 11/28/24 Needle (Disp) 25 G (Easy Touch Fliplock Needl 25G X 1") 1 Mis Mis, EA XX ACHS PRN, #120 before meal and bedtime Prov:ALMAZAN LITO Thompson RESIDENT 11/27/24 Isopropyl Alcohol (Alcohol Swabs) 70 % Pad, EA XX ACHS PRN, #120 before meal and bedtime Prov:NORAH Thompson LITO 11/27/24 Insulin Syringe/Needle U-100 (Aq Insulin Syringe/1Ml/29 29G X 1/2" 1 ml) 1 Mis Mis, EA XX ACHS PRN, #120 before meal and at morning time Prov:ALMAZAN LITO Thompson 11/27/24 Blood Glucose Monitoring Suppl (Easy Talk Blood Glucose M) System Mis, EA XX ACHS PRN, #1 before meal and bedtime Prov:LITO MARCIAL 11/27/24 Glucose Blood (EASY TOUCH GLUCOSE TEST S) Strips Vonda, 1 EA ACHS for 30 Days, #120 MISC Prov:LITO MARCIAL 11/27/24 Insulin Glargine (Lantus) 100 Unit/Ml Inj, 15 UNITS SC QAM for 30 Days, #10 ML every morning subcutaneous injection. Prov:NORAH Donna LITO 11/27/24 Plan/Recommendation The patient was seen and discussed with Lou Ford, RADHA. I agree with her Assessment and Plan, which was formulated with me. Plan discussed with: Patient Date of Service: Dec 12, 2024 Billing Provider: ROXANNE CALVERT DO Cardiology Common Codes: [id number] INP/OBS CARE (High) MELONY FORD [employer] DEVEL[employer] Dec 12, 2024 15:01 ROXANNE CALVERT DO Dec 12, 2024 19:41
[2024-12-12 17:00] VITALS: BP 120/59; PULSE 66; RESP 18; TEMP 98.2; O2SAT 99
[2024-12-12 21:00] VITALS: BP 105/61; PULSE 86; RESP 18; TEMP 98; O2SAT 99
[2024-12-12] MEDS: MELATONIN 5 MG TAB PO ONE (21:20)
[2024-12-13 05:00] VITALS: BP 99/52; PULSE 71; RESP 20; TEMP 98.6; O2SAT 98
[2024-12-13 05:40] LABS: Basophils # (auto) 0.1 10 ^3/uL (0-0.2); Basophils % (auto) 1.9 % (0.0-2.0); Eosinophils # (auto) 0.2 10 ^3/uL (0-0.8); Eosinophils % (auto) 3.9 % (0.0-7.0); Hematocrit 30.5 % (41.0-53.0); Hemoglobin 10.3 g/dL (13.5-17.5); Lymphocytes # (auto) 1.7 10 ^3/uL (0.4-5.4); Lymphocytes % (auto) 31.5 % (10.0-50.0); Mean Corpuscular Hemoglobin 31.9 pg (28.0-32.0); Mean Corpuscular Hgb Conc. 33.8 g/dL (32.0-36.0); Mean Corpuscular Volume 94.4 fL (80.0-100.0); Monocytes # (auto) 0.4 10 ^3/uL (0-1.3); Monocytes % (auto) 8.3 % (0.0-12.0); Neutrophils # (auto) 2.9 10 ^3/uL (1.6-8.6); Neutrophils % (auto) 54.4 % (37.0-80.0); Nucleated Red Blood Cells % 0.1 %; Platelet Count (auto) 283 10^3/uL (140-450); Red Blood Cells 3.23 10^6/uL (4.5-5.90); Red Cell Distribution Width 14.2 % (11.8-14.3); White Blood Cell 5.3 10^3/uL (4.4-10.8)
[2024-12-13 06:03] LABS: Albumin 3.6 g/dL (3.2-4.8); Anion Gap 5 (5-15); BUN/Creatinine Ratio 21.8 (10.0-20.0); Bilirubin, Total 0.3 mg/dL (0.2-1.0); Blood Urea Nitrogen 19 mg/dL (9-23); Calcium 9.2 mg/dL (8.7-10.4); Carbon Dioxide 26 mmol/L (20-31); Potassium 4.1 mmol/L (3.5-5.1); Sodium 140 mmol/L (136-145); Total Protein 6.1 g/dL (5.7-8.2)
[2024-12-13 06:16] LABS: Alanine Aminotransferase 58 U/L (7-40); Alkaline Phosphatase 127 U/L (46-116); Aspartate Aminotransferase 58 U/L (13-40); Chloride 109 mmol/L (98-107); Glucose 122 mg/dL (74-106)
[2024-12-13 09:35] VITALS: BP 127/78; PULSE 78; RESP 17; TEMP 97.3; O2SAT 100
[2024-12-13] MEDS ORDERED: INSU100I4 SC (09:47)
[2024-12-13] MEDS ORDERED: DAPA1TAB4 PO (09:47)
[2024-12-13] MEDS ORDERED: METF-771 PO (09:47)
[2024-12-13] MEDS ORDERED: INSUINJ37 SC (11:18)
[2024-12-13] MEDS ORDERED: LANC-347 XX (13:50)
[2024-12-13] MEDS ORDERED: BLOO1KIT60 XX (13:53)
[2024-12-13] MEDS ORDERED: GLUC-149 VI (13:53)
--- NOTE | 2024-12-13 13:54 | ECG ---
[facility] Test Date: 2024-12-12 Test Time: 14:07:38 Pat Name: SANG QUINTAAN Department: Respiratoy Room: 0250 A Gender: M Portable Trackman: ASAEL : 1955 Requested By: MELONY FORD Order Number: [id number] Reading MD: Trevor Schmidt Measurements Intervals [place] Rate: 80 P: 63 PA: 167 QRS: 79 QRSD: 95 T: 60 QT: 448 QTc: 517 Interpretive Statements Sinus rhythm Nonspecific T abnormalities, lateral leads Prolonged QT interval Electronically Signed On 12-13-2024 22:28:10 PDT by Trevor Schmidt Please click the below link to view image of tracing.
[2024-12-13 14:15] VITALS: BP 112/67; PULSE 73; RESP 17; TEMP 97.8; O2SAT 99
[2024-12-13] MEDS ORDERED: BLOO-200 XX (15:02)
--- NOTE | 2024-12-13 18:23 | DVHDSRES ---
Discharge Summary Date of Admission Resident Creating Document: NETTA RIVERA RESIDENT Dec 11, 2024 at 23:27 Date of Discharge: Dec 13, 2024 Admitting Diagnosis Uncontrolled type 2 diabetes mellitus with hyperglycemia Wounds: Small abrasion in the right knee Labs/Diagnostic Data: Laboratory Results Test 12/13/24 11:23 12/13/24 04:24 12/12/24 05:21 12/12/24 00:45 POC Glucose 359 mg/dl (70-106) White Blood Count 5.3 10^3/uL (4.4-10.8) Red Blood Count 3.23 10^6/uL (4.5-5.90) Hemoglobin 10.3 g/dL (13.5-17.5) Hematocrit 30.5 % (41.0-53.0) Mean Corpuscular Volume 94.4 fL (80.0-100.0) Mean Corpuscular Hemoglobin 31.9 pg (28.0-32.0) Mean Corpuscular Hemoglobin Concent 33.8 g/dL (32.0-36.0) Red Cell Distribution Width 14.2 % (11.8-14.3) Platelet Count 283 10^3/uL (140-450) Mean Platelet Volume 9.2 fL (6.9-10.8) Neutrophils (%) (Auto) 54.4 % (37.0-80.0) Lymphocytes (%) (Auto) 31.5 % (10.0-50.0) Monocytes (%) (Auto) 8.3 % (0.0-12.0) Eosinophils (%) (Auto) 3.9 % (0.0-7.0) Basophils (%) (Auto) 1.9 % (0.0-2.0) Neutrophils # (Auto) 2.9 10 ^3/uL (1.6-8.6) Lymphocytes # (Auto) 1.7 10 ^3/uL (0.4-5.4) Monocytes # (Auto) 0.4 10 ^3/uL (0-1.3) Eosinophils # (Auto) 0.2 10 ^3/uL (0-0.8) Basophils # (Auto) 0.1 10 ^3/uL (0-0.2) Nucleated Red Blood Cells 0.1 % Sodium Level 140 mmol/L (136-145) Potassium Level 4.1 mmol/L (3.5-5.1) Chloride Level 109 mmol/L (98-107) Carbon Dioxide Level 26 mmol/L (20-31) Anion Gap 5 (5-15) Blood Urea Nitrogen 19 mg/dL (9-23) Creatinine 0.87 mg/dL (0.700-1.30) Glomerular Filtration Rate Calc 95 mL/min (>90) BUN/Creatinine Ratio 21.8 (10.0-20.0) Serum Glucose 122 mg/dL (74-106) Calcium Level 9.2 mg/dL (8.7-10.4) Total Bilirubin 0.3 mg/dL (0.2-1.0) Aspartate Amino Transferase (AST) 58 U/L (13-40) Alanine Aminotransferase (ALT) 58 U/L (7-40) Alkaline Phosphatase 127 U/L (46-116) Total Protein 6.1 g/dL (5.7-8.2) Albumin 3.6 g/dL (3.2-4.8) Prothrombin Time 10.0 sec (9.3-11.8) Prothrombin Time INR 0.94 (0.9-1.15) Activated Partial Thromboplast Time 23.3 SEC (24.5-34.5) Serum Osmolality 298 mOsm/kg (278-298) Test 12/11/24 20:17 12/11/24 18:03 12/11/24 16:45 12/11/24 16:37 Magnesium Level 2.0 mg/dL (1.6-2.6) Troponin I High Sensitivity 80 ng/L (</=54) Triglycerides Level 136 mg/dL (< 150) Cholesterol Level 186 mg/dL (< 200) LDL Cholesterol 107 mg/dL (< 100) HDL Cholesterol 62 mg/dL (40-59) Beta-Hydroxybutyric Acid 0.102 mmol/L (< 0.4) Ammonia < 10 umol/L (11-32) Lactic Acid Level 1.9 mmol/L (0.4-2.0) Plasma/Serum Blood Alcohol < 3.0 mg/dL (<10) Urine Color Colorless (Yellow) Urine Clarity Clear (Clear) Urine pH 5.5 (5.0-9.0) Urine Specific [place] 1.036 (1.001-1.035) Urine Protein Negative (Negative) Urine Ketones Negative (Negative) Urine Blood Negative /uL (Negative) Urine Nitrite Negative (Negative) Urine Bilirubin Negative (Negative) Urine Urobilinogen Normal mg/dL (Negative) Urine Leukocyte Esterase 1+ /uL (Negative) Urine RBC None seen /hpf (0 - 3) Urine Microscopic WBC 43 /HPF (0-3) Urine Squamous Epithelial Cells None seen /hpf (<5) Urine Bacteria None seen /hpf (None Seen) Urine Yeast (Budding) Loaded /hpf (None Seen) Urine Glucose 4+ mg/dL (Normal) Urine Opiates Screen Neg (NEGATIVE) Urine Fentanyl Screen Neg (NEGATIVE) Urine Barbiturates Screen Neg (NEGATIVE) Urine Phencyclidine Screen Neg (NEGATIVE) Urine Amphetamines Screen Neg (NEGATIVE) Urine Benzodiazepines Screen Neg (NEGATIVE) Urine Cocaine Screen Neg (NEGATIVE) Urine Cannabinoids Screen Neg (NEGATIVE) Other Laboratory Tests 12/13/24 04:24 Brief Hx & Hospital Course: This is a 69-year-old male with past medical history of diabetes type 2, alcohol use disorder referred from the PCP clinic (Dr. Polanco) due to hyperglycemia. Patient was discharged on 11/27/24 from [facility], had admitted due to hyperglycemia, upon dose discharge the patient was prescribed insulin but the patient could not receive insulin. Patient reports polyuria, polydipsia, bilateral lower limb shaking and weakness. He also reports of multiple mechanical fall, last time was 5 days back at home which lead to right lower limb abrasion. He denies loss of consciousness, nausea, vomiting, blurry vision or any motor or sensory deficits. He has history of hip surgery, since that time he was bilateral lower limb weakness. Hospital course: On admission blood sugar was 338, normal anion gap and beta hydroxybutyrate negative and patient was treated with Lantus 15 units at q.a.m. and aggressive sliding scale of insulin. EKG revealed sinus rhythm, troponin was mildly elevated and flat trending and cardiology was consulted because of the mildly elevated troponin and mentioned NSTEMI type 2 likely due to hyperglycemia and recommended tight glycemic control, diet and exercise. CT head without contrast revealed no acute intracranial abnormality. transaminitis likely due to dehydration and patient got 2 L IV bolus. BMI is 18.2 kg/m2 and possible chronic iron-deficiency anemia patient was counseled regarding healthy nutrition diet. discussed with the patient and all questions were answered. Patient is being discharged to home with Lantus 15 units at q.a.m. daily, Humalog insulin 3 units before each meal, metformin XR 500 mg b.i.d., farxiga 10 mg p.o. daily and also glucometer strips and lancet. Physical examination: General Appearance: Alert, Oriented X3, Cooperative, No acute distress HEENT: Atraumatic, PERRLA, EOMI, Mucous membrane moist/pink Respiratory: Clear to auscultation, Normal air movement Cardiovascular: Regular rate, Normal S1, Normal S2, No murmurs, no chest wall tenderness Abdominal: Normal bowel sounds, Soft, No tenderness, No hepatospenomegaly, No masses Extremities: No clubbing, No cyanosis, No edema, Normal pulses, No tenderness/swelling Skin: No rashes, No breakdown, No significant lesion Neuro: Normal gait, Normal speech, Strength at 5/5 X4 ext, Normal tone, Sensation intact, Cranial nerves 3-12 NL, Reflexes 2+ Psych/Mental Status: Mental status NL, Mood NL Consults/Reason for consult Cardiology was consulted Operations or Procedures EXAM: CT HEAD WITHOUT CONTRAST INDICATION: FALL INJURY TECHNIQUE: CT of the head without intravenous contrast. Radiation Dose Information: CT Dose: CTDI volume is 54.75 mGy. Dose-length product is 942.16 mGy*cm The dose indicators for CT are the volume Computed Tomography (CT) Dose Index (CTDIvol) and the Dose Length Product (DLP), and are measured in units of mGy and mGy-cm, respectively. These indicators are not patient dose, but values generated from the CT scanner acquisition factors. The report includes radiation exposure data for exposures received during this examination. COMPARISON: CT HEAD WITHOUT CONTRAST on DOS: 11/17/24, CT HEAD WITHOUT CONTRAST on DOS: 11/17/24, CT HEAD WITHOUT CONTRAST on DOS: 11/16/24 FINDINGS: There is no evidence of acute intracranial hemorrhage, extra-axial collection, mass effect, midline shift, herniation or hydrocephalus. The ventricles, sulci and cisterns are age appropriate. The ramirez-white differentiation is intact. Patchy periventricular and subcortical white matter hypoattenuation is nonspecific but may be related to small vessel ischemic disease. The visualized paranasal sinuses and mastoid air cells are clear. The surrounding soft tissues and osseous structures are unremarkable. IMPRESSION: 1. No acute intracranial hemorrhage 2. No CT findings of displaced skull fracture 3. No CT findings of territorial ischemia CHEST RADIOGRAPH Indication: DIZZY Technique: Single frontal view of the chest was obtained COMPARISON: XY CHEST PORTABLE on DOS: 11/22/24, XY CHEST PORTABLE on DOS: 11/21/24, XY CHEST PORTABLE on DOS: 11/20/24, XY CHEST XRAY 1 VIEW on DOS: 11/19/24, XY CHEST XRAY 1 VIEW on DOS: 11/17/24 FINDINGS: Lines and Tubes: None Lungs: Clear Pleura: No effusion. No pneumothorax. Cardiomediastinal contours: Unremarkable Bones: Unremarkable IMPRESSION: 1. No acute disease. Condition at Discharge: Stable Final Diagnosis/Problems List # Uncontrolled type 2 diabetes mellitus with hyperglycemia, HbA1C>14 on 11/16/24 # Ruled out diabetic ketoacidosis # Dehydration likely due to hyperglycemia # Possible NSTEMI type 2 due to above # History of fall # Transaminitis likely due to dehydration # Possible severe malnutrition, BMI 18.2 Kg/m2 # Possible chronic iron defieciency anaemia Discharge Disposition: Home Discharge Instruct/Medications Diet: Consistent carbohydrate Activity: No Restrictions, As Tolerated Follow Up/Referral: Follow up with PCP in 1 week Medications: As per EMR Discharge Statement: "Patient was advised to return to the ER or call 911 if any headaches, dizziness, shortness of breath, chest pain, abdominal pain, bleeding, fevers, or worsening of medical condition. Patient was counseled about treatment plan, medications, possible side effects, patientverbalized understanding. All questions were answered to the best of my ability. This discharge took greater then 30 minutes in planning, reviewing documentation, counseling the patient, and discussing with other team members." ASSESSMENT ASSESSMENT Assessment # Uncontrolled type 2 diabetes mellitus with hyperglycemia, HbA1C>14 on 11/16/24 # Ruled out diabetic ketoacidosis # Dehydration likely due to hyperglycemia # Possible NSTEMI type 2 due to above # History of fall # Transaminitis likely due to dehydration # Possible severe malnutrition, BMI 18.2 Kg/m2 # Possible chronic iron defieciency anaemia NETTA RIVERA RESIDENT Dec 13, 2024 18:22
== END 2024-12-13 16:59 | disposition home or self-care (01) | DRG 637 ==
LOC: ER 15:43 → OVERFLOW 23:27 → EAST 12-12 11:00
PROVIDERS: ADMIT Student in an Organized Health Care Education/Training Program; ATTEND Internal Medicine
DX: E11.65 Type 2 diabetes mellitus with hyperglycemia (principal); E43 Unspecified severe protein-calorie malnutrition; I21.A1 Myocardial infarction type 2; N39.0 Urinary tract infection, site not specified; Z68.1 Body mass index [BMI] 19.9 or less, adult; E86.0 Dehydration; B37.9 Candidiasis, unspecified; S09.90XA Unspecified injury of head, initial encounter; D63.8 Anemia in other chronic diseases classified elsewhere; E78.5 Hyperlipidemia, unspecified; F10.10 Alcohol abuse, uncomplicated; Y90.9 Presence of alcohol in blood, level not specified; R29.6 Repeated falls; F14.10 Cocaine abuse, uncomplicated; F12.10 Cannabis abuse, uncomplicated; R74.01 Elevation of levels of liver transaminase levels; S80.811A Abrasion, right lower leg, initial encounter; W18.39XA Other fall on same level, initial encounter; D50.9 Iron deficiency anemia, unspecified; Y93.89 Activity, other specified; Y92.89 Other specified places as the place of occurrence of the external cause; Y99.8 Other external cause status; Z88.0 Allergy status to penicillin; Z79.899 Other long term (current) drug therapy; Z79.4 Long term (current) use of insulin; Z79.84 Long term (current) use of oral hypoglycemic drugs
CPT/HCPCS: 36415; 70450; 71045; 80048; 80053; 80061; 80307; 80320; 81001; 82010; 82140; 82962; 83605; 83735; 83930; 84484; 85025; 85610; 85730; 87040; 87081; 93005; 99291; G0378; J1815